=== PATIENT | female | born 1935 | race Caucasian/White ===

== ENCOUNTER → 2019-03-22 14:22 | Outpatient (CLI) | payer MEDICARE, MEDICAID, SELFPAY ==
--- NOTE | 2019-03-22 14:24 | DI.RAD.S_ITS ---
PROCEDURE: XR SHOULDER RT MIN 2V INDICATIONS: Right shoulder pain - AC joint and rotator cuff TECHNIQUE: 3 views of the shoulder were acquired. COMPARISON: [facility], , SHOULDER MINIMUM 2 VIEW LEFT, 02/07/2008, 9:19. FINDINGS: Bones: No fractures or dislocations. No suspicious bony lesions. Visualized ribs appear intact. Scattered degenerative subchondral sclerosis and spurring. Severe AC joint space narrowing. Mild glenohumeral joint degeneration Soft tissues: No suspicious soft tissue calcifications. IMPRESSION: Right shoulder joint degeneration as above Dictated by: Daniel Mar M.D. on 03/22/2019 at 15:16 Approved by: Daniel Mar M.D. on 03/22/2019 at 15:18
== END ==
PROVIDERS: Family Provider Physician Assistant; PCP Physician Assistant; Visit Provider Physician Assistant
DX: M25.511 Pain in right shoulder (principal); M19.011 Primary osteoarthritis, right shoulder
CPT/HCPCS: 73030

== ENCOUNTER 2020-05-08 10:35 | Emergency (ER) | payer MEDICARE, MEDICAID, SELFPAY ==
[2020-05-08 10:35] VITALS: BP 180/86; PULSE 75; RESP 18; TEMP 36.5; O2SAT 99
--- NOTE | 2020-05-08 11:00 | ED_ITS ---
HPI - Allergic Reaction General Chief complaint: Allergic Reaction Stated complaint: reaction to Amox today Time Seen by Provider: 05/08/20 10:39 Source: patient Mode of arrival: Ambulatory Limitations: no limitations History of Present Illness HPI narrative: 85-year-old woman presents after taking a dose of amoxicillin this morning and then remembering that she was ?allergic to it?. She is asymptomatic at this time. According to her she has recurrent nausea that she believes is due to an infection after a tooth extraction. I spoke with Dr. Shields's office [phone] apparently she had tooth 11. Extracted on April 16. She has been seen 5 times since that with complaints of a bad taste in her mouth that is causing nausea and she is convinced that it is a dental infection. The dentist has documented normal healing each time. Patient then went to urgent care on May 07 with the same complaint -nausea and a bad taste in her mouth without any pain. Urgent care notes indicate that the patient had spoken with her dentist and indicated that the dentist thought that it was likely an infection. Speaking with the dentist, despite 5 previous visits with no evidence of infection, no pain and no change to the nausea every time she eats, they did end up calling in a prescription for amoxicillin late the afternoon of May 07. In speaking with the pharmacist, a prescription for Zofran, Levaquin and Flagyl from urgent care were dispensed on May 07. The morning of May 08 patient picked up the amoxicillin prescription told the pharmacist that the night prior she had taken 1 Levaquin to Zofran and no Flagyl. After picking up the amoxicillin she took a single dose and then remembered that she had had some type of adverse reaction to it a long time ago. Pharmacy records indicate that they had last dispensed an amoxicillin prescription to her approximately a year and a half ago with no record of any amoxicillin allergies. At this time, this woman's complaint is nausea every time she eats and a bad taste in her mouth. She is 22 days post extraction of tooth 11. With multiple other areas of decay in her mouth Related Data Home Medications Medication Instructions Recorded Confirmed COENZYME Q10/VITAMIN E (CO-Q-10 100 mg PO QDAY #0 12/28/12 05/07/20 100mg) [FLAX SEED] PO QDAY #0 12/14/16 05/07/20 [VITAMIN B-12] 2,000 iu PO QDAY #0 12/14/16 05/07/20 [VITAMIN D3] 1,000 iu PO BID #0 12/14/16 05/07/20 magnesium oxide 500 mg capsule 500 mg PO DAILY cap 03/22/19 05/07/20 Previous Rx's Medication Instructions Recorded levofloxacin 500 mg tablet 500 mg PO DAILY 7 Days #7 tab 05/07/20 metronidazole 500 mg tablet 500 mg PO BID #14 tab 05/07/20 ondansetron 4 mg disintegrating 4 mg PO BID PRN #14 tab 05/07/20 tablet Allergies Allergy/AdvReac Type Severity Reaction Status Date / Time amoxicillin [AMOXICILLIN] AdvReac Severe NAUSEA, Verified 05/08/20 10:45 DIZZINESS AND ESOPHAGITIS clindamycin [CLINDAMYCIN] AdvReac Severe NAUSEA, Verified 05/08/20 10:45 DIZZINESS, ESOPHAGITIS meclizine [MECLIZINE] AdvReac Severe NAUSEA, Verified 05/08/20 10:45 DIZZINESS AND ESOPHAGITIS shellfish derived AdvReac Severe (SHRIMP) Verified 05/08/20 10:45 [SHELLFISH DERIVED] VOMITING Review of Systems Review of Systems Narrative: Pertinent positive and negative findings as per HPI Remainder of review of systems is otherwise unremarkable for Constitutional: Fevers, chills, weakness ENT: No sore throat, neck pain, ear pain CV: Chest pain, palpitations, dyspnea on exertion Respiratory: Cough, wheeze, dyspnea Patient History Medical History Adverse drug reaction (Inactive) Allergic rhinitis (Chronic Unknown) Arthritis (Resolved 04/2006) Dental infection (Acute) Endometrial polyp (Resolved Unknown) Esophagitis, acute (Inactive) Hx of pilonidal cyst (Resolved 1953) Nausea (Acute) Vertigo (Resolved ~2011) Surgical History History of third molar tooth extraction Status post dilation and curettage (01/13/10) Status post tonsillectomy and adenoidectomy Family History Father Cancer Mother Pneumonia Social History Smoking Status: Never smoker Smoking Status: Never smoker alcohol intake frequency: 0-2 drinks per day Substance Use Type: does not use Exam Narrative Exam Narrative: General: Alert appropriate in no acute distress ENT: Home oral exam, she has had multiple teeth extracted. Site of 11. Is well healed with no drainage no erythema and no tenderness. There are no other obvious infections or area of drainage. She has no cervical adenopathy Respiratory: Able to speak in full sentences, no obvious respiratory distress Skin: No obvious rashes, warm and dry Neurologic: Grossly intact no obvious asymmetries or abnormalities Psych: Somewhat confused, cooperative Initial Vital Signs Initial Vital Signs: Vital Signs Temperature 97.7 F 05/08/20 10:35 Pulse Rate 75 05/08/20 10:35 Respiratory Rate 18 05/08/20 10:35 Blood Pressure 180/86 H 05/08/20 10:35 Pulse Oximetry 99 05/08/20 10:35 Course Orders Ordered: Discontinued Medications Ondansetron HCl (Zofran Odt) 4 mg SL NOW ONE Stop: 05/08/20 10:52 Last Admin: 05/08/20 11:02 Dose: 4 mg Documented by: CLINTON Vital Signs Vital signs: Vital Signs - 8 hr 05/08/20 10:35 Temperature 97.7 F Pulse Rate 75 Respiratory Rate 18 Blood Pressure 180/86 H Pulse Oximetry 99 MDM - Allergic Reaction Medical Records Attestation: I reviewed the patient's medical records. MDM Narrative Medical decision making narrative: After examining patient, speaking with her dentist, reviewing urgent care notes I do not think that she has any acute dental infection. Her complaints of nausea every time she eats may well have another etiology. The bad taste in her mouth certainly can be explained with some of the other dental pathology but is not something that requires antibiotics at this time. She has taken a single dose of amoxicillin this morning is having no obvious adverse reactions at this time. I am not impressed that she truly does have an allergy to amoxicillin. She currently has a prescription for ondansetron to help with nausea from her urgent care visit yesterday that is available to her at home (pharmacy confirm that she did filll this the prescription) I have shared my concerns with her dentist with whom she has an appointment at 8:00 a.m. tomorrow I am going to suggest she stop all antibiotics. Follow-up with a primary care physician if she does continue to have nausea every time she eats. Review the bad taste in her mouth with her dentist at her appointment tomorrow. Discharge Plan Departure Patient Disposition: Home Clinical Impression: Nausea Instructions: DI for Nausea -- Adult Activity Restrictions/Additional Instructions: Thank you for coming in today On my exam today the recent tooth extraction on the upper left side is healing nicely. There is no drainage, redness or any evidence of infection. I do not think that the nausea your experiencing every time you eat is related to a dental infection. You do not need any antibiotics and I believe they are all causing a moderate amount of side effects. Please stop taking the Levaquin and the metronidazole that you picked up on May 07 and stop taking the amoxicillin that you picked up on May 08 You were also given a prescription for ondansetron, you picked this up on May 07 as well. If you are having continued nausea you can use this up to 2 times a day. If the nausea persists, you need to follow-up with your primary care shea higuera. I did leave a message with Dr. Shields, to let him know about the urgent care visit the concerns with amoxicillin allergy and the confusion over the antibiotics. If you continue to note this bad taste in your mouth, please discuss this with Dr Shields. Again, please stop taking all of the antibiotics that you currently have filled. You do not need antibiotics at this time and you do not have an acute dental infection. I hope you feel better. Prescriptions: No Action ondansetron 4 mg tablet,disintegrating 4 mg PO BID PRN (Reason: nausea and vomiting) Qty: 14 RF: 0 levofloxacin 500 mg tablet 500 mg PO DAILY 7 Days Qty: 7 RF: 0 metronidazole [Flagyl] 500 mg tablet 500 mg PO BID Qty: 14 RF: 0 COENZYME Q10/VITAMIN E (CO-Q-10 100mg) 100 mg PO QDAY Qty: 0 RF: 0 [FLAX SEED] PO QDAY Qty: 0 RF: 0 [VITAMIN B-12] 2,000 iu PO QDAY Qty: 0 RF: 0 [VITAMIN D3] 1,000 iu PO BID Qty: 0 RF: 0 magnesium oxide 500 mg capsule 500 mg PO DAILY RF: 0 Referrals: Lul Larkin MD [Primary Care Provider] -
[2020-05-08] MEDS: ONDANSETRON 4 MG ODT SL (11:02)
[2020-05-08 11:19] VITALS: BP 134/74; PULSE 78; RESP 12; TEMP 36.9; O2SAT 98
[2020-05-08 11:31] VITALS: BP 134/74; PULSE 73; RESP 12; O2SAT 98
== END 2020-05-08 11:33 | disposition home or self-care (01) ==
PROVIDERS: Emergency Provider Emergency Medicine; Family Provider Physician Assistant; PCP Student in an Organized Health Care Education/Training Program
DX: R11.0 Nausea (principal)
CPT/HCPCS: 99283

== ENCOUNTER 2020-05-10 09:44 | Emergency (ER) | payer MEDICARE, MEDICAID, SELFPAY ==
[2020-05-10 09:47] VITALS: BP 141/69; PULSE 84; RESP 14; TEMP 36.3; O2SAT 97; BMI 22.8
--- NOTE | 2020-05-10 09:52 | DI.RAD.S_ITS ---
PROCEDURE: XR CHEST 1V INDICATIONS: chest pain TECHNIQUE: One view of the chest was acquired. COMPARISON: [facility], CHEST 1 VIEW, 01/17/2012, 8:24. [facility], CHEST 1 VIEW, 07/29/2012, 7:29. FINDINGS: Surgical changes and devices: None. Lungs and pleura: Lungs are clear. No pleural effusions or pneumothorax. Mediastinum: The cardiac contours are within normal limits. The aorta demonstrates calcification and tortuosity. Bones and chest wall: No suspicious bony lesions. Age-appropriate bony degenerative changes are seen. Overlying soft tissues appear unremarkable. IMPRESSION: Unremarkable portable chest for age. Dictated by: Peter Faye M.D. on 05/10/2020 at 9:35 Approved by: Peter Faye M.D. on 05/10/2020 at 9:36
--- NOTE | 2020-05-10 09:52 | ED_ITS ---
HPI - General Adult General Chief complaint: Chest Pain Stated complaint: CHEST PAIN Time Seen by Provider: 05/10/20 09:52 History of Present Illness HPI narrative: 85-year-old woman who presents with chest pain that started about 3 hours prior to arrival. She describes preparing food in kitchen when she noticed some tightness in the center of her chest that she felt could be gas related. It lasted approximately 10 minutes and then resolved. She describes it is mild and not associated with diaphoresis or dyspnea. She had a tooth extracted on April 16 and has had recurrent episodes of nausea that she felt was related to infection from the tooth. Recurrent evaluation by the dentist and then again by me in the emergency room a couple of days ago did not suggest any discharge erythema or other issues with the extraction. She was seen two days ago in the emergency room, she was complaining of nausea that have been going on for 2 weeks. Today she complains of nausea for the last 3 days. She was given a prescription of Zofran and yesterday apparently took 8 4 mg tablets over the course of approximately 7 hours during the day. She called the pharmacist to again rate explained appropriate dosing and suggested that if she were to have any chest pain she needed to contact the emergency department. She notes that she has been sleeping poorly for an extended period of time typically 2-3 hours a night. She states that she only slept 3 hours last night. She has not had any actual emesis just the nausea over the last few weeks. She has not had exertional dyspnea, prior chest pain, diarrhea, fevers, chills, cough or any reports of acute neurologic changes. Related Data Home Medications Medication Instructions Recorded Confirmed COENZYME Q10/VITAMIN E (CO-Q-10 100 mg PO QDAY #0 12/28/12 05/09/20 100mg) [FLAX SEED] PO QDAY #0 12/14/16 05/09/20 [VITAMIN B-12] 2,000 iu PO QDAY #0 12/14/16 05/09/20 [VITAMIN D3] 1,000 iu PO BID #0 12/14/16 05/09/20 magnesium oxide 500 mg capsule 500 mg PO DAILY cap 03/22/19 05/09/20 Previous Rx's Medication Instructions Recorded ondansetron 4 mg disintegrating 4 mg PO BID PRN #14 tab 05/07/20 tablet Allergies Allergy/AdvReac Type Severity Reaction Status Date / Time metronidazole Allergy Mild nausea Verified 05/10/20 10:24 amoxicillin [AMOXICILLIN] AdvReac Severe NAUSEA, Verified 05/10/20 10:24 DIZZINESS AND ESOPHAGITIS clindamycin [CLINDAMYCIN] AdvReac Severe NAUSEA, Verified 05/10/20 10:24 DIZZINESS, ESOPHAGITIS meclizine [MECLIZINE] AdvReac Severe NAUSEA, Verified 05/10/20 10:24 DIZZINESS AND ESOPHAGITIS shellfish derived AdvReac Severe (SHRIMP) Verified 05/10/20 10:24 [SHELLFISH DERIVED] VOMITING Review of Systems Review of Systems Narrative: Pertinent positive and negative findings as per HPI Remainder of review of systems is otherwise unremarkable for Constitutional: Fevers, chills, weakness ENT: No sore throat, neck pain, ear pain CV: palpitations, dyspnea on exertion Respiratory: Cough, wheeze, dyspnea GI: Nausea, vomiting, diarrhea, change in bowel habits, black or bloody stools : Dysuria, hematuria, flank pain MS: Muscle weakness, numbness, joint swelling or warmth Skin: Rashes, nonhealing lesions Neuro: Syncope, dizziness, tingling Patient History Medical History Adverse drug reaction (Inactive) Allergic rhinitis (Chronic Unknown) Arthritis (Resolved 04/2006) Dental infection (Acute) Endometrial polyp (Resolved Unknown) Esophagitis, acute (Inactive) Hx of pilonidal cyst (Resolved 1953) Nausea (Acute) Vertigo (Resolved ~2011) Surgical History History of third molar tooth extraction Status post dilation and curettage (01/13/10) Status post tonsillectomy and adenoidectomy Family History Father Cancer Mother Pneumonia Social History Smoking Status: Never smoker Smoking Status: Never smoker alcohol intake frequency: 0-2 drinks per day Substance Use Type: does not use Exam Narrative Exam Narrative: General: Healthy appearing, in no acute distress. Able to give a complete and coherent history. Well-nourished well-developed HEENT: Moist mucous membranes, normal sclera with reactive pupils, Neck: No JVD, supple Respiratory: Lungs are clear to auscultation, no wheezing no rales no rhonchi. Full and symmetrical air movement Chest: No rashes, no tenderness along the sternal margin and no reproducible pain with compression of the ribcage Cardiac: Regular rate and rhythm no murmurs no bruits Abdomen: Soft nontender good bowel tones, no flank pain Skin: Warm and dry, no rashes Neurologic: Grossly neurologically intact with no obvious asymmetries or abnormalities Extremities: No trauma, well perfused Psych: Cooperative, appropriate insight and affect Initial Vital Signs Initial Vital Signs: Vital Signs Temperature 97.4 F L 05/10/20 09:47 Pulse Rate 84 05/10/20 09:47 Respiratory Rate 14 05/10/20 09:47 Blood Pressure 141/69 H 05/10/20 09:47 Pulse Oximetry 97 05/10/20 09:47 Course Orders Ordered: ED Orders 05/10/20 09:52 XR chest 1V Stat 05/10/20 10:00 Complete Blood Count AUTO DIFF Stat Comprehensive Metabolic Panel Stat Lipase Stat Troponin & CK Cardiac Panel Stat 05/10/20 10:04 EKG-12 Lead Stat Sodium Chloride (Normal Saline 0.9%) 1,000 mls @ 150 mls/hr IV CONT TORRES Last Admin: 05/10/20 10:21 Dose: 150 mls/hr Documented by: TEMI Discontinued Medications Aspirin (Aspirin Chew) 324 mg PO NOW ONE Stop: 05/10/20 09:53 Last Admin: 05/10/20 10:17 Dose: 324 mg Documented by: TEMI Vital Signs Vital signs: Vital Signs - 8 hr 05/10/20 09:47 05/10/20 10:36 Temperature 97.4 F L Pulse Rate 84 73 Respiratory Rate 14 16 Blood Pressure 141/69 H Blood Pressure [Right Arm] 123/67 Pulse Oximetry 97 97 Medical Decision Making Medical Records Medical records reviewed: Yes I reviewed the patient's medical records. Lab Data Lab results reviewed: Yes I reviewed the patient's lab results. Lab results narrative: Troponin is 0.012 Result diagrams: 05/10/20 10:00 05/10/20 10:00 Labs: Lab Results 05/10/20 05/10/20 Range/Units 10:00 10:00 WBC 4.9 (4.5-11.0) X10^3/uL RBC 4.72 (4.0-5.2) X10^6/uL Hgb 14.1 (12.0-16.0) g/dL Hct 40.7 (36-46) % MCV 86.2 (80-100) fL MCH 29.8 (26-34) PG MCHC 34.6 (30-36) % RDW 13.6 (11.6-14.8) % Plt Count 249 (150-400) X10^3/uL Neut % (Auto) 64.4 (50-75) % Lymph % (Auto) 25.5 (25-40) % [place] % (Auto) 7.5 (3-14) % Eos % (Auto) 2.0 (2-4) % Baso % (Auto) 0.6 (0-2) % Neut # (Auto) 3200 (7745-6265) /uL Lymph # (Auto) 1300 (7172-4535) /uL [place] # (Auto) 400 (0-900) /uL Eos # (Auto) 100 (0-450) /uL Baso # (Auto) 0 (0-100) /uL Sodium 136 L (137-145) mmol/L Potassium 4.0 (3.4-5.1) mmol/L Chloride 104 (98-107) mmol/L Carbon Dioxide 25 (22-32) mmol/L BUN 16 (7-17) mg/dL Creatinine 0.63 (0.52-1.04) mg/dL Estimated GFR > 60.0 (>60) mL/min BUN/Creatinine Ratio 25.4 H (6-22) Glucose 165 H (80-110) mg/dL Calcium 9.7 (8.4-10.2) mg/dL Total Bilirubin 1.2 (0.2-1.3) mg/dL AST 31 (14-36) IU/L ALT 19 (<35) IU/L Alkaline Phosphatase 65 (38-126) U/L Total Creatine Kinase 86 (30-135) U/L CK-MB (CK-2) TNP CK-MB (CK-2) Rel Index TNP Troponin I < 0.012 (0.01-0.034) ng/mL Total Protein 7.2 (6.3-8.2) g/dL Albumin 4.6 (3.5-5.0) g/dL Globulin 2.6 (1.7-4.1) g/dL Albumin/Globulin Ratio 1.8 (1.0-2.8) Lipase 113 (23-300) U/L Imaging Data Chest x-ray: Radiologist's Impression: IMPRESSION: Unremarkable portable chest for age. Dictated by: Peter Faye M.D. on 05/10/2020 at 9:35 ECG Data Attestation: I personally reviewed and interpreted this ECG as follows: Interpretation: Sinus rhythm at a rate of 73 Right bundle branch and left anterior fascicular block. Left axis deviation. No acute ST T wave changes. No evidence acute ischemia MDM Narrative Medical decision making narrative: 85-year-old woman with brief episode of chest pain this morning. She is seeking reassurance that she lives by herself and apparently lives quite far away. She was able to drive herself to the emergency department today. She has had recurrent complaints of nausea since dental extraction done on April 16. This morning nausea did seem to be resolved. She reports taking a total of 32 mg of ondansetron 8 yesterday over a course of 8 hours. This morning comes in for additional evaluation. Labs are entirely unremarkable as is troponin. Her EKG is notable for of right bundle branch block but no acute ischemic changes. QTC is 404 milliseconds and unremarkable At this point, reassurance is given I do not think that this is a cardiac issue. I suspect that anxiety is more a component than anything else. Reassurance is given she is safe for home discharge. Discharge Plan Departure Patient Disposition: Home Clinical Impression: Atypical chest pain, Nausea Instructions: DI for Atypical Chest Pain Activity Restrictions/Additional Instructions: Thank you for coming in today While you did take more of the nausea medicine then was recommended, you are still at the maximum 24 hour dose of medication recommended. Your lab work, EKG and chest x-ray today are reassuring. There is no evidence of severe toxicity from taking extra Zofran and there is no evidence of an acute heart attack or other life-threatening issues. It is safe for you to go home. If you have chest pain that returns, is more severe, associated with sweating or feeling short of breath and is radiating into your left arm left neck or left shoulder those would be appropriate reasons to return for additional evaluation in the emergency department. I would encourage you to follow-up with your primary care physician. Prescriptions: No Action ondansetron 4 mg tablet,disintegrating 4 mg PO BID PRN (Reason: nausea and vomiting) Qty: 14 RF: 0 COENZYME Q10/VITAMIN E (CO-Q-10 100mg) 100 mg PO QDAY Qty: 0 RF: 0 [FLAX SEED] PO QDAY Qty: 0 RF: 0 [VITAMIN B-12] 2,000 iu PO QDAY Qty: 0 RF: 0 [VITAMIN D3] 1,000 iu PO BID Qty: 0 RF: 0 magnesium oxide 500 mg capsule 500 mg PO DAILY RF: 0 Referrals: Lul Larkin MD [Primary Care Provider] -
[2020-05-10 10:08] LABS: Add Manual Diff / Slide Review NO; Basophils Absolute Auto 0 /uL (0-100); Basophils Percent Auto 0.6 % (0-2); Eosinophils Absolute Auto 100 /uL (0-450); Hematocrit 40.7 % (36-46); Hemoglobin 14.1 g/dL (12.0-16.0); Lymphocytes Absolute Auto 1300 /uL (1100-4500); Lymphocytes Percent Auto 25.5 % (25-40); Mean Corpuscular HGB Conc 34.6 % (30-36); Mean Corpuscular Hemoglobin 29.8 PG (26-34); Mean Corpuscular Volume 86.2 fL (80-100); Monocytes Absolute Auto 400 /uL (0-900); Monocytes Percent Auto 7.5 % (3-14); Neutrophils Absolute Auto 3200 /uL (1500-7000); Neutrophils Percent Auto 64.4 % (50-75); Platelet Count 249 X10^3/uL (150-400); Red Blood Cell Count 4.72 X10^6/uL (4.0-5.2); Red Cell Distribution Width 13.6 % (11.6-14.8); White Blood Cell Count 4.9 X10^3/uL (4.5-11.0)
[2020-05-10] MEDS: ASPIRIN 81 MG CHEW TAB 324 MG PO (10:17)
[2020-05-10 10:20] LABS: Alanine Aminotransferase 19 IU/L (<35); Albumin 4.6 g/dL (3.5-5.0); Albumin Globulin Ratio 1.8 (1.0-2.8); Alkaline Phosphatase 65 U/L (38-126); Aspartate Aminotransferase 31 IU/L (14-36); BUN Creatinine Ratio 25.4 (6-22); Bilirubin Total 1.2 mg/dL (0.2-1.3); Blood Urea Nitrogen 16 mg/dL (7-17); Calcium 9.7 mg/dL (8.4-10.2); Carbon Dioxide 25 mmol/L (22-32); Chloride 104 mmol/L (98-107); Creatine Kinase 86 U/L (30-135); Estimated Glomerular Filt Rate > 60.0 mL/min (>60); Globulin 2.6 g/dL (1.7-4.1); Glucose 165 mg/dL (80-110); HEMOLYSIS < 15 (0-50); Lipase 113 U/L (23-300); Sodium 136 mmol/L (137-145); Total Protein 7.2 g/dL (6.3-8.2)
[2020-05-10] MEDS: SODIUM CHLORIDE 0.9% 1,000 ML 150 ML IV (10:21)
[2020-05-10 10:30] LABS: Troponin I < 0.012 ng/mL (0.01-0.034)
[2020-05-10 10:36] VITALS: BP 123/67; PULSE 73; RESP 16; O2SAT 97
== END 2020-05-10 11:00 | disposition home or self-care (01) ==
PROVIDERS: Emergency Provider Emergency Medicine; Family Provider Physician Assistant; PCP Student in an Organized Health Care Education/Training Program
DX: R07.89 Other chest pain (principal); R11.0 Nausea
CPT/HCPCS: 36415; 71045; 80053; 82550; 83690; 84484; 85025; 93005; 96360; 99284

== ENCOUNTER → 2020-05-15 09:31 | Outpatient (CLI) | payer MEDICARE, MEDICAID, SELFPAY ==
[2020-05-15 10:08] LABS: Bacteria Urine None Seen
[2020-05-15 11:18] LABS: Hemoglobin A1C% w Est Avg Glu 5.4 % (4.0-6.0)
[2020-05-15 11:47] LABS: Appearance Urine UA CLEAR; Bilirubin Urine UA NEGATIVE (NEGATIVE); Color Urine UA YELLOW; Glucose Urine UA NEGATIVE (Negative); Ketones Urine UA TRACE (NEGATIVE); Leukocyte Esterase Urine UA NEGATIVE (NEGATIVE); Nitrite Urine UA NEGATIVE (Negative); Occult Blood Urine UA TRACE-INTACT (Negative); Protein Urine UA NEGATIVE (Negative); Specific Gravity Urine UA 1.015 (1.000-1.035); Urobilinogen Urine UA 0.2 E.U./dL (0.2)
[2020-05-15 11:50] LABS: Blood Urea Nitrogen 14 mg/dL (7-17); Calcium 9.2 mg/dL (8.4-10.2); Carbon Dioxide 30 mmol/L (22-32); Chloride 104 mmol/L (98-107); Cholesterol 210 mg/dL (140-199); Estimated Glomerular Filt Rate > 60.0 mL/min (>60); Glucose 104 mg/dL (80-110); HDL Cholesterol 79 mg/dL (40-60); HEMOLYSIS 15 (0-50); LDL Cholesterol Calculated 110 mg/dL (<100); Potassium 3.9 mmol/L (3.4-5.1); Sodium 137 mmol/L (137-145); Triglycerides 107 mg/dL (35-150)
[2020-05-15 12:07] LABS: RBC Urine 1-5/HPF (0-5/HPF)
[2020-05-15 12:08] LABS: Culture Indicated Urine Cult Not Indicated; Squamous Epithelial Cell Urine 1-5 /HPF (0-5/HPF); WBC Urine 0-1/HPF (0-5/HPF)
[2020-05-15 12:10] LABS: TSH w/ Reflex to FT4 0.77 uIU/mL (0.47-4.68)
[2020-05-16 14:36] LABS: Fecal Immunochemical Test Negative (Negative)
== END ==
PROVIDERS: Family Provider Physician Assistant; PCP Registered Nurse Diabetes Educator; Referring Provider Registered Nurse Diabetes Educator; Visit Provider Registered Nurse Diabetes Educator
DX: R11.0 Nausea (principal); Z86.39 Personal history of other endocrine, nutritional and metabolic disease; E78.5 Hyperlipidemia, unspecified
CPT/HCPCS: 36415; 80048; 80061; 81001; 82274; 83036; 84443

== ENCOUNTER 2020-05-17 12:39 | Emergency (ER) | payer MEDICARE, MEDICAID, SELFPAY ==
[2020-05-17 12:40] VITALS: BP 153/67; PULSE 65; RESP 18; TEMP 36.7; O2SAT 98; BMI 22.3
--- NOTE | 2020-05-17 12:44 | DI.RAD.S_ITS ---
PROCEDURE: XR CHEST 1V INDICATIONS: Chest pain TECHNIQUE: One view of the chest was acquired. COMPARISON: [facility], CR, XR CHEST 1V, 05/10/2020, 10:07. FINDINGS: Surgical changes and devices: None. Lungs and pleura: Lungs are clear. No pleural effusions or pneumothorax. Mediastinum: Mediastinal contours appear normal. Heart size is normal. Bones and chest wall: No suspicious bony lesions. Overlying soft tissues appear unremarkable. IMPRESSION: No acute cardiopulmonary process demonstrated radiographically. No significant change from prior study. Dictated by: Filemon Paulson M.D. on 05/17/2020 at 13:39 Approved by: Filemon Paulson M.D. on 05/17/2020 at 13:40
--- NOTE | 2020-05-17 12:57 | ED.CHESTPAIN ---
HPI - Chest Pain <Janice Mcconnell PA-C - Last Filed: 05/17/20 15:37> General Chief Complaint: Chest Pain Stated Complaint: Severe Nausea/Chest Pain Time Seen by Provider: 05/17/20 12:57 Source: patient Mode of arrival: Family Vehicle Limitations: no limitations History of Present Illness HPI narrative: This is an 85-year-old woman with a history of anxiety, atypical chest pain, nausea, shoulder pain and hyperglycemia who presents the emergency department complaining of nausea and chest pain. She says that the nausea has been on going for quite a few days now and she has already been seen for this and is working with her primary care doctor on what might be going on. The reason she came in today is that she started to have some sharp chest pains in the center slightly left side of her chest and it was pain that she had had not noticed previously. Because it was on the left side she thought it was important to come and get checked out she got in her car to drive over here and by the time she arrived to the hospital she was actually feeling much better. She says that the pain is currently gone and other than her consistent nausea she feels her normal self. She also notes that she took her 1st dose of omeprazole which she was recently prescribed about an hour before the pain happened. She says that her chronic nausea does not seem to be specifically associated with eating, it occurs at random and is present most of the time and she states she has been eating and drinking normally. She notes that she lives by herself although she says that her [id number] does live down the road, and states that ?now that I know what things to look out for I will not have to come in for something like this again, I am sorry I feel like I am a bother?. She denies any current chest pain, shortness of breath, abdominal pain, back pain, palpitations or any other symptoms. She also denies any recent fever, chills, vomiting or diarrhea. Related Data Home Medications Medication Instructions Recorded Confirmed COENZYME Q10/VITAMIN E (CO-Q-10 100 mg PO QDAY #0 12/28/12 05/16/20 100mg) [FLAX SEED] PO QDAY #0 12/14/16 05/16/20 [VITAMIN B-12] 2,000 iu PO QDAY #0 12/14/16 05/16/20 [VITAMIN D3] 1,000 iu PO BID #0 12/14/16 05/16/20 magnesium oxide 500 mg capsule 500 mg PO DAILY cap 03/22/19 05/16/20 Previous Rx's Medication Instructions Recorded ondansetron 4 mg disintegrating 4 mg PO BID PRN #14 tab 05/13/20 tablet omeprazole 20 mg capsule,delayed 20 mg PO DAILY #30 cap 05/16/20 release Allergies Allergy/AdvReac Type Severity Reaction Status Date / Time metronidazole Allergy Mild nausea Verified 05/16/20 08:35 amoxicillin [AMOXICILLIN] AdvReac Severe NAUSEA, Verified 05/16/20 08:35 DIZZINESS AND ESOPHAGITIS clindamycin [CLINDAMYCIN] AdvReac Severe NAUSEA, Verified 05/16/20 08:35 DIZZINESS, ESOPHAGITIS meclizine [MECLIZINE] AdvReac Severe NAUSEA, Verified 05/16/20 08:35 DIZZINESS AND ESOPHAGITIS shellfish derived AdvReac Severe (SHRIMP) Verified 05/16/20 08:35 [SHELLFISH DERIVED] VOMITING Review of Systems <Janice Mcconnell PA-C - Last Filed: 05/17/20 15:37> Review of Systems Narrative: GENERAL: Denies chills, fatigue, malaise, fever, sweats. HEENT: Denies sinus pain, ear pain, sore throat, difficulty swallowing, dizziness. RESPIRATORY: Denies dyspnea, cough, wheezing, hemoptysis, sputum. CARDIOVASCULAR: Positive for sharp chest pain that lasted about 15 minutes now resolved, negative for palpitations, orthopnea, edema, GASTROINTESTINAL: Positive for chronic nausea, negative for vomiting, abdominal pain, diarrhea, constipation, melena. : Denies dysuria, frequency, incontinence, hematuria, urinary retention. MUSCULOSKELETAL: denies weakness, joint pain, or bony pain SKIN: Denies rash, skin lesions, or other NEUROLOGIC: Denies weakness, headache, numbness, change in speech, confusion, seizures, incoordination. PSYCHIATRIC: No concerning psychosocial issues, patient lives alone, sought medical care in part because she was unsure of her symptoms warranted assessment because ?I live alone?. 12 point review of systems is negative except for those stated above Patient History <Janice Mcconnell PA-C - Last Filed: 05/17/20 15:37> Medical History Adverse drug reaction (Inactive) Allergic rhinitis (Chronic Unknown) Arthritis (Resolved 04/2006) Dental infection (Acute) Endometrial polyp (Resolved Unknown) Esophagitis, acute (Inactive) History of hyperglycemia (Acute) Hx of pilonidal cyst (Resolved 1953) Memory problem (Acute) Nausea (Acute) Vertigo (Resolved ~2011) Surgical History History of third molar tooth extraction Status post dilation and curettage (01/13/10) Status post tonsillectomy and adenoidectomy Family History Father Cancer Mother Pneumonia Social History Smoking Status: Never smoker Smoking Status: Never smoker alcohol intake frequency: 0-2 drinks per day Substance Use Type: does not use Exam <Janice Mcconnell PA-C - Last Filed: 05/17/20 15:37> Narrative Exam Narrative: GENERAL: 85 year old patient appears stated age. Well-nourished, well-developed patient, in mild distress. HEAD: Atraumatic. Normocephalic. EYES: Pupils equal round and reactive. Extraocular motions intact. No scleral icterus. No injection or drainage. ENT: Nose without bleeding, purulent drainage. Throat without erythema, tonsillar hypertrophy or exudate. Airway patent. NECK: Trachea midline. Non tender CARDIOVASCULAR: Regular rate and rhythm without murmurs, gallops, or rubs. RESPIRATORY: Clear to auscultation. Breath sounds equal bilaterally. No wheezes, rales, or rhonchi. GASTROINTESTINAL: Abdomen soft, non-tender, nondistended. EXTREMITIES: No edema or joint tenderness. BACK: Nontender without deformity or crepitance. No flank tenderness. NEURO: AOx3. SKIN: No rash or erythema of visible areas Initial Vital Signs Initial Vital Signs: Vital Signs Temperature 98.0 F 05/17/20 12:40 Pulse Rate 65 05/17/20 12:40 Respiratory Rate 18 05/17/20 12:40 Blood Pressure 153/67 H 05/17/20 12:40 Pulse Oximetry 98 05/17/20 12:40 <Ross Francisco MD - Last Filed: 05/18/20 07:32> Initial Vital Signs Initial Vital Signs: Vital Signs Temperature 98.0 F 05/17/20 12:40 Pulse Rate 65 05/17/20 12:40 Respiratory Rate 18 05/17/20 12:40 Blood Pressure 153/67 H 05/17/20 12:40 Pulse Oximetry 98 05/17/20 12:40 Scores <Janice Mcconnell PA-C - Last Filed: 05/17/20 15:37> GCS [place] coma scale eye opening: Spontaneous [place] coma scale verbal response: Orientated [place] coma scale motor response: Obey commands Darren coma scale total score: 15 Course <Janice Mcconnell PA-C - Last Filed: 05/17/20 15:37> Orders Ordered: Discontinued Medications Ondansetron HCl (Zofran) 4 mg IV NOW ONE Stop: 05/17/20 13:02 Last Admin: 05/17/20 13:11 Dose: 4 mg Documented by: DALJIT Vital Signs Vital signs: Vital Signs - 8 hr 05/17/20 12:40 05/17/20 14:00 Temperature 98.0 F Pulse Rate 65 64 Respiratory Rate 18 19 Blood Pressure 153/67 H 131/70 Pulse Oximetry 98 97 <Ross Francisco MD - Last Filed: 05/18/20 07:32> Orders Ordered: Discontinued Medications Ondansetron HCl (Zofran) 4 mg IV NOW ONE Stop: 05/17/20 13:02 Last Admin: 05/17/20 13:11 Dose: 4 mg Documented by: DALJIT Vital Signs Vital signs: Vital Signs - 8 hr 05/17/20 12:40 05/17/20 14:00 Temperature 98.0 F Pulse Rate 65 64 Respiratory Rate 18 19 Blood Pressure 153/67 H 131/70 Pulse Oximetry 98 97 MDM - Chest Pain <Janice Mcconnell PA-C - Last Filed: 05/17/20 15:37> Medical Records Data Attestation: I reviewed the patient's medical records. Lab Data Attestation: I reviewed the patient's lab results. Result diagrams: 05/17/20 13:00 05/17/20 13:00 Labs: Lab Results 05/17/20 05/17/20 05/17/20 Range/Units 13:00 13:00 13:00 WBC 4.6 (4.5-11.0) X10^3/uL RBC 4.53 (4.0-5.2) X10^6/uL Hgb 13.6 (12.0-16.0) g/dL Hct 39.1 (36-46) % MCV 86.4 (80-100) fL MCH 30.0 (26-34) PG MCHC 34.7 (30-36) % RDW 13.7 (11.6-14.8) % Plt Count 236 (150-400) X10^3/uL Neut % (Auto) 57.6 (50-75) % Lymph % (Auto) 30.0 (25-40) % [place] % (Auto) 8.4 (3-14) % Eos % (Auto) 3.2 (2-4) % Baso % (Auto) 0.8 (0-2) % Neut # (Auto) 2600 (2719-4414) /uL Lymph # (Auto) 1400 (3712-1008) /uL [place] # (Auto) 400 (0-900) /uL Eos # (Auto) 100 (0-450) /uL Baso # (Auto) 0 (0-100) /uL PT 10.8 (10.1-12.7) SECONDS INR 0.9 (0.9-1.3) APTT 28 (26.4-36.2) SECONDS Sodium 136 L (137-145) mmol/L Potassium 3.8 (3.4-5.1) mmol/L Chloride 103 (98-107) mmol/L Carbon Dioxide 29 (22-32) mmol/L BUN 12 (7-17) mg/dL Creatinine 0.58 (0.52-1.04) mg/dL Estimated GFR > 60.0 (>60) mL/min BUN/Creatinine Ratio 20.7 (6-22) Glucose 129 H (80-110) mg/dL Calcium 8.8 (8.4-10.2) mg/dL Total Bilirubin 0.7 (0.2-1.3) mg/dL AST 27 (14-36) IU/L ALT 15 (<35) IU/L Alkaline Phosphatase 60 (38-126) U/L Total Creatine Kinase 99 (30-135) U/L CK-MB (CK-2) TNP CK-MB (CK-2) Rel Index TNP Troponin I < 0.012 (0.01-0.034) ng/mL Total Protein 6.4 (6.3-8.2) g/dL Albumin 4.1 (3.5-5.0) g/dL Globulin 2.3 (1.7-4.1) g/dL Albumin/Globulin Ratio 1.8 (1.0-2.8) Lipase 127 (23-300) U/L Imaging Data Chest x-ray: Attestation: I personally reviewed and interpreted this imaging study as follows: Radiologist's Impression: [address] [address] XRay Report Signed Patient: Mariela Bansk EMR#: [id number] : 7Acct:[id number] Age/Sex: 85 / FDate of Service: 05/17/20 Loc: ED Accession Number: [id number] Procedure: XR chest 1V Ordering Provider: Ross Francisco MD PROCEDURE: XR CHEST 1V INDICATIONS: Chest pain TECHNIQUE: One view of the chest was acquired. COMPARISON: [facility], , XR CHEST 1V, 05/10/2020, 10:07. FINDINGS: Surgical changes and devices: None. Lungs and pleura: Lungs are clear. No pleural effusions or pneumothorax. Mediastinum: Mediastinal contours appear normal. Heart size is normal. Bones and chest wall: No suspicious bony lesions. Overlying soft tissues appear unremarkable. IMPRESSION: No acute cardiopulmonary process demonstrated radiographically. No significant change from prior study. Dictated by: Filemon Paulson M.D. on 05/17/2020 at 13:39 Approved by: Filemon Paulson M.D. on 05/17/2020 at 13:40 ECG Data Attestation: I personally reviewed and interpreted this ECG as follows: Prior ECG tracings: available for review (Unchanged) Interpretation: Sinus rhythm with left axis deviation, possible right ventricular conduction delay ventricular rate 63 P are interval 158 QRS 94 QTC 403 P axis 67 R axis -39 T axis 39 Core Measures Measure exclusions: not indicated MDM Narrative Medical decision making narrative: This is a well-appearing 85-year-old the history of atypical chest pain, nausea, anxiety who presents to the emergency department due to concerns over some sharp chest pains in the center and central left side of her chest that she experienced this morning about 1 hour after taking her 1st ever dose of omeprazole. The pain resolved upon arrival to the emergency department. Differential diagnoses considered include GERD, anxiety, atypical chest pain, NM I have low suspicion for an acute or life-threatening process, given that the patient's pain sounds noncardiac in nature and was short lived and resolved prior to her arrival to the emergency department. Workup today was unremarkable, and not suggestive of cardiac etiology or other acute cardiopulmonary process. She continues to have ongoing chronic nausea and she is working with her PCP on this. Patient notably lives alone, while she is generally doing fairly well mentally, I am concerned that some of her reason for her visit today was for reassurance, and possibly anxiety, because she lives alone and she seems to not be 100% capable of deciding whether her symptoms are concerning or not. While obtaining the HPI She stated repeatedly that ?now that I know what things to look out for (neck or shoulder pain) I know I do not have to worry and will not bother you guys again for something like this ?. Which suggest that she does not have the best decision making ability, and while she has presented to the emergency department once if not twice recently with concerns that ultimately proved non-emergent, there is also potentially a risk that she will not seek medical care when it is needed due to poor decision making. Patient was reassured regarding her complaints today, and advised it is appropriate to seek medical care if she has any symptoms that are new for her, or worsening of any chronic problems. Patient was discharged with emergency return precautions, advised to continue taking her prescribed medications and to continue working with her PCP and follow-up after this emergency department visit. All questions were answered. <Ross Francisco MD - Last Filed: 05/18/20 07:32> Lab Data Labs: Lab Results 05/17/20 05/17/20 05/17/20 Range/Units 13:00 13:00 13:00 WBC 4.6 (4.5-11.0) X10^3/uL RBC 4.53 (4.0-5.2) X10^6/uL Hgb 13.6 (12.0-16.0) g/dL Hct 39.1 (36-46) % MCV 86.4 (80-100) fL MCH 30.0 (26-34) PG MCHC 34.7 (30-36) % RDW 13.7 (11.6-14.8) % Plt Count 236 (150-400) X10^3/uL Neut % (Auto) 57.6 (50-75) % Lymph % (Auto) 30.0 (25-40) % [place] % (Auto) 8.4 (3-14) % Eos % (Auto) 3.2 (2-4) % Baso % (Auto) 0.8 (0-2) % Neut # (Auto) 2600 (9515-8476) /uL Lymph # (Auto) 1400 (8908-0505) /uL [place] # (Auto) 400 (0-900) /uL Eos # (Auto) 100 (0-450) /uL Baso # (Auto) 0 (0-100) /uL PT 10.8 (10.1-12.7) SECONDS INR 0.9 (0.9-1.3) APTT 28 (26.4-36.2) SECONDS Sodium 136 L (137-145) mmol/L Potassium 3.8 (3.4-5.1) mmol/L Chloride 103 (98-107) mmol/L Carbon Dioxide 29 (22-32) mmol/L BUN 12 (7-17) mg/dL Creatinine 0.58 (0.52-1.04) mg/dL Estimated GFR > 60.0 (>60) mL/min BUN/Creatinine Ratio 20.7 (6-22) Glucose 129 H (80-110) mg/dL Calcium 8.8 (8.4-10.2) mg/dL Total Bilirubin 0.7 (0.2-1.3) mg/dL AST 27 (14-36) IU/L ALT 15 (<35) IU/L Alkaline Phosphatase 60 (38-126) U/L Total Creatine Kinase 99 (30-135) U/L CK-MB (CK-2) TNP CK-MB (CK-2) Rel Index TNP Troponin I < 0.012 (0.01-0.034) ng/mL Total Protein 6.4 (6.3-8.2) g/dL Albumin 4.1 (3.5-5.0) g/dL Globulin 2.3 (1.7-4.1) g/dL Albumin/Globulin Ratio 1.8 (1.0-2.8) Lipase 127 (23-300) U/L Discharge Plan Departure Patient Disposition: Home Clinical Impression: Atypical chest pain, Nausea alone Discharge Date/Time: 05/17/20 14:32 Instructions: DI for Atypical Chest Pain, DI for Nausea -- Adult Activity Restrictions/Additional Instructions: Thank you for allowing us to be part of your care in the emergency department today. There is no evidence of an emergent or life threatening illness at this time, but follow up with your doctor in 1-2 days is recommended nonetheless to continue to rule out serious underlying causes of your symptoms. Please call the office for an appointment. Please return to the Emergency Department for any worsening or persistent symptoms. Please take medications as directed. I do not have a clear cause for your chest pain although I am glad that it was largely resolved by the time you came to the emergency department and that was short lived. It is certainly possible that your body was reacting a little bit to your new medication since you just took your omeprazole for the 1st time ever, shortly before you experience this chest discomfort. All of your labs, your EKG and chest x-ray were very reassuring today and I do not think that there is any reason to believe you are having trouble with your heart or any other acute or life-threatening process. Please do pay attention to her symptoms, and when you do experience something that is new for you or if you have worsening symptoms and is definitely appropriate to seek medical care. Please continue to work with your primary care physician regarding your ongoing nausea an evaluation for this. Prescriptions: No Action COENZYME Q10/VITAMIN E (CO-Q-10 100mg) 100 mg PO QDAY Qty: 0 RF: 0 [FLAX SEED] PO QDAY Qty: 0 RF: 0 [VITAMIN B-12] 2,000 iu PO QDAY Qty: 0 RF: 0 [VITAMIN D3] 1,000 iu PO BID Qty: 0 RF: 0 magnesium oxide 500 mg capsule 500 mg PO DAILY RF: 0 ondansetron 4 mg tablet,disintegrating 4 mg PO BID PRN (Reason: nausea and vomiting) Qty: 14 RF: 0 omeprazole 20 mg capsule,delayed release(DR/EC) 20 mg PO DAILY Qty: 30 RF: 0 Referrals: Kurt Matthew ARNP [Primary Care Provider] -
[2020-05-17 13:05] LABS: Add Manual Diff / Slide Review NO; Basophils Absolute Auto 0 /uL (0-100); Basophils Percent Auto 0.8 % (0-2); Eosinophils Absolute Auto 100 /uL (0-450); Eosinophils Percent Auto 3.2 % (2-4); Hematocrit 39.1 % (36-46); Hemoglobin 13.6 g/dL (12.0-16.0); Lymphocytes Absolute Auto 1400 /uL (1100-4500); Mean Corpuscular HGB Conc 34.7 % (30-36); Mean Corpuscular Volume 86.4 fL (80-100); Monocytes Absolute Auto 400 /uL (0-900); Monocytes Percent Auto 8.4 % (3-14); Neutrophils Absolute Auto 2600 /uL (1500-7000); Neutrophils Percent Auto 57.6 % (50-75); Platelet Count 236 X10^3/uL (150-400); Red Blood Cell Count 4.53 X10^6/uL (4.0-5.2); Red Cell Distribution Width 13.7 % (11.6-14.8); White Blood Cell Count 4.6 X10^3/uL (4.5-11.0)
[2020-05-17] MEDS: ONDANSETRON 4 MG/2 ML INJ IV (13:11)
[2020-05-17 13:14] LABS: INR 0.9 (0.9-1.3); Prothrombin Time 10.8 SECONDS (10.1-12.7)
[2020-05-17 13:16] LABS: PTT Partial Thromboplastin Tim 28 SECONDS (26.4-36.2)
[2020-05-17 13:20] LABS: Alanine Aminotransferase 15 IU/L (<35); Albumin 4.1 g/dL (3.5-5.0); Albumin Globulin Ratio 1.8 (1.0-2.8); Alkaline Phosphatase 60 U/L (38-126); Aspartate Aminotransferase 27 IU/L (14-36); BUN Creatinine Ratio 20.7 (6-22); Bilirubin Total 0.7 mg/dL (0.2-1.3); Blood Urea Nitrogen 12 mg/dL (7-17); Calcium 8.8 mg/dL (8.4-10.2); Carbon Dioxide 29 mmol/L (22-32); Chloride 103 mmol/L (98-107); Creatine Kinase 99 U/L (30-135); Estimated Glomerular Filt Rate > 60.0 mL/min (>60); Globulin 2.3 g/dL (1.7-4.1); Glucose 129 mg/dL (80-110); HEMOLYSIS < 15 (0-50); Lipase 127 U/L (23-300); Potassium 3.8 mmol/L (3.4-5.1); Sodium 136 mmol/L (137-145); Total Protein 6.4 g/dL (6.3-8.2)
[2020-05-17 13:31] LABS: Troponin I < 0.012 ng/mL (0.01-0.034)
[2020-05-17 14:00] VITALS: BP 131/70; PULSE 64; RESP 19; O2SAT 97
== END 2020-05-17 14:32 | disposition home or self-care (01) ==
PROVIDERS: Emergency Medicine; Emergency Provider Student in an Organized Health Care Education/Training Program; Family Provider Physician Assistant; PCP Registered Nurse Diabetes Educator
DX: R07.89 Other chest pain (principal); R11.0 Nausea
CPT/HCPCS: 36415; 71045; 80053; 82550; 83690; 84484; 85025; 85610; 85730; 93005; 96374; 99284; J2405

== ENCOUNTER → 2020-05-24 08:29 | Outpatient (CLI) | payer MEDICARE, MEDICAID, SELFPAY ==
--- NOTE | 2020-05-24 08:32 | DI.RAD.S_ITS ---
PROCEDURE: XR RIBS RT MIN 3V W CXR 1V INDICATIONS: rib pain TECHNIQUE: 2 views of the right ribs were acquired, along with a single view chest. COMPARISON: None. FINDINGS: Surgical changes and devices: None. Bones and chest wall: No fractures or dislocations. No suspicious bony lesions. Overlying soft tissues appear unremarkable. Lungs and pleura: No pleural effusions or pneumothorax. Lungs appear clear. Mediastinum: Mediastinal contours appear normal. Heart size is normal. IMPRESSION: No displaced rib fractures visualized. No acute cardiopulmonary findings. Dictated by: Griselda Sims M.D. on 05/24/2020 at 11:11 Approved by: Griselda Sims M.D. on 05/24/2020 at 11:11
--- NOTE | 2020-05-24 08:32 | DI.RAD.S_ITS ---
PROCEDURE: XR ABDOMEN MIN 2V INDICATIONS: 1 week hx nausea. Please eval for stool backup or other TECHNIQUE: 2 views of the abdomen were acquired. COMPARISON: None. FINDINGS: Surgical changes and devices: None. Bowel: A large amount of stool is present throughout the transverse and ascending colon. Bowel gas pattern is otherwise unremarkable. Soft tissues: No masses; visualized solid organ contours appear normal in size. No suspicious abdominal calcifications. Bones: No suspicious bony abnormalities. IMPRESSION: Probable constipation. No findings to suggest obstruction or ileus. Dictated by: Griselda Sims M.D. on 05/24/2020 at 11:11 Approved by: Griselda Sims M.D. on 05/24/2020 at 11:12
== END ==
PROVIDERS: Family Provider Physician Assistant; PCP Registered Nurse Diabetes Educator; Referring Provider Family Medicine; Visit Provider Family Medicine
DX: R07.81 Pleurodynia (principal); R11.0 Nausea
CPT/HCPCS: 71101; 74019

== ENCOUNTER 2020-05-28 05:54 | Emergency (ER) | payer MEDICARE, MEDICAID, SELFPAY ==
--- NOTE | 2020-05-28 06:04 | ED_ITS ---
HPI - Nausea/Vomiting/Diarrhea General Chief complaint: Nausea/Vomiting/Diarrhea Stated complaint: still feeling sick after tooth extraction Time Seen by Provider: 05/28/20 05:55 Source: patient Mode of arrival: Ambulatory Limitations: no limitations History of Present Illness HPI Narrative: 85-year-old female nonsmoker presents with a chief complaint of ongoing nausea since dental work a month or so ago. She denies pain and has had no vomiting but states she has had a funny taste in her mouth ever since the dental work and it is making her nauseated. She is able to eat and drink. She has had no fever or chills. She has had numerous visits to the emergency department, her primary care provider, and her dentist with at times very large and complex evaluations and essentially normal electrolytes, blood counts, renal function etc.. She is taking her medications as prescribed which include ondansetron and omeprazole among others MD complaint: nausea Onset (ago): week(s) Description of Diarrhea: none Associated Abdominal Pain: No Relieving factors: none Exacerbating factors: none Related Data Home Medications Medication Instructions Recorded Confirmed COENZYME Q10/VITAMIN E (CO-Q-10 100 mg PO QDAY #0 12/28/12 05/27/20 100mg) [FLAX SEED] PO QDAY #0 12/14/16 05/27/20 [VITAMIN B-12] 2,000 iu PO QDAY #0 12/14/16 05/27/20 [VITAMIN D3] 1,000 iu PO BID #0 12/14/16 05/27/20 magnesium oxide 500 mg capsule 500 mg PO DAILY cap 03/22/19 05/27/20 Previous Rx's Medication Instructions Recorded omeprazole 20 mg capsule,delayed 20 mg PO DAILY #30 cap 05/16/20 release lidocaine 5 % topical patch 1 patch TOP DAILY #15 each 05/24/20 ondansetron 4 mg disintegrating 4 mg PO BID PRN #14 tab 05/27/20 tablet Allergies Allergy/AdvReac Type Severity Reaction Status Date / Time metronidazole Allergy Mild nausea Verified 05/27/20 08:59 amoxicillin [AMOXICILLIN] AdvReac Severe NAUSEA, Verified 05/27/20 08:59 DIZZINESS AND ESOPHAGITIS clindamycin [CLINDAMYCIN] AdvReac Severe NAUSEA, Verified 05/27/20 08:59 DIZZINESS, ESOPHAGITIS meclizine [MECLIZINE] AdvReac Severe NAUSEA, Verified 05/27/20 08:59 DIZZINESS AND ESOPHAGITIS shellfish derived AdvReac Severe (SHRIMP) Verified 05/27/20 08:59 [SHELLFISH DERIVED] VOMITING Review of Systems Constitutional Constitutional: Denies chills, Denies fatigue, Denies fever(s), Denies frequent falls, Denies lethargy and Denies weakness Eyes Eyes: Denies change in vision, Denies eye discharge, Denies irritation and Denies loss of vision ENT Ears, Nose, Mouth, and Throat: Denies change in voice, Denies dizziness, Denies neck pain, Denies sore throat and Denies throat swelling Comments: foul taste in mouth Cardiovascular Cardiovascular: Denies chest pain, Denies irregular heart rhythm, Denies lightheadedness, Denies palpitations, Denies dyspnea, Denies dyspnea on exertion and Denies orthopnea Respiratory Respiratory: Denies cough, Denies dyspnea, Denies dyspnea on exertion and Denies wheezing Gastrointestinal Gastrointestinal: Denies abdominal pain, Denies change in bowel habits, Denies diarrhea, Reports nausea and Denies vomiting Musculoskeletal Musculoskeletal: Denies neck pain and Denies numbness Integumentary/Breasts Skin/Breast: Denies pruritus, Denies erythema, Denies rash and Denies wounds Neurologic Neurologic: Denies behavioral changes, Denies confusion, Denies dizziness, Denies frequent falls, Denies loss of vision, Denies numbness and Denies weakness Psychiatric Psychiatric: Denies anxiety, Denies behavioral changes, Denies confusion, Denies depression, Denies homicidal ideation and Denies suicidal ideation Endocrine Endocrine: Denies fatigue, Denies flushing and Denies palpitations Hematologic/Lymphatic Hematologic/Lymphatic: Denies easy bruising Allergic/Immunologic Allergic/Immunologic: Denies urticaria, Denies throat swelling and Denies wheezing Patient History Medical History Adverse drug reaction (Inactive) Allergic rhinitis (Chronic Unknown) Arthritis (Resolved 04/2006) Dental infection (Acute) Endometrial polyp (Resolved Unknown) Esophagitis, acute (Inactive) History of hyperglycemia (Acute) Hx of pilonidal cyst (Resolved 1953) Memory problem (Acute) Muscle strain of anterior chest wall (Acute) Nausea (Acute) Vertigo (Resolved ) Surgical History History of third molar tooth extraction Status post dilation and curettage (01/13/10) Status post tonsillectomy and adenoidectomy Family History Father Cancer Mother Pneumonia Social History Smoking Status: Never smoker Smoking Status: Never smoker alcohol intake frequency: 0-2 drinks per day Substance Use Type: does not use Exam Narrative Exam Narrative: GENERAL: [85] year old patient appears stated age. Well- nourished, well-developed patient, in mild distress. HEAD: Atraumatic. Normocephalic. EYES: Pupils equal round and reactive. Extraocular motions intact. No scleral icterus. No injection or drainage. ENT: Poor dentition throughout, no suggestion abscess Nose without bleeding, purulent drainage. Throat without erythema, tonsillar hypertrophy or exudate. Airway patent. NECK: Trachea midline. Non tender CARDIOVASCULAR: Regular rate and rhythm without murmurs, gallops, or rubs. RESPIRATORY: Clear to auscultation. Breath sounds equal bilaterally. No wheezes, rales, or rhonchi. GASTROINTESTINAL: Abdomen soft, non-tender, nondistended. EXTREMITIES: No edema or joint tenderness. BACK: Nontender without deformity or crepitance. No flank tenderness. NEURO: AOx3. SKIN: No rash or erythema of visible areas Initial Vital Signs Initial Vital Signs: Vital Signs Temperature 98.1 F 05/28/20 06:05 Pulse Rate 63 05/28/20 06:05 Respiratory Rate 18 05/28/20 06:05 Blood Pressure 189/89 H 05/28/20 06:05 Pulse Oximetry 99 05/28/20 06:05 Course Vital Signs Vital signs: Vital Signs - 8 hr 05/28/20 06:05 Temperature 98.1 F Pulse Rate 63 Respiratory Rate 18 Blood Pressure 189/89 H Pulse Oximetry 99 MDM - Nausea/Vomiting/Diarrhea MDM Narrative Medical decision making narrative: Offered repeat labs and further evaluation, but patient refused at this point in time. Stating that we'd already done this, she wants to see a dentist or mouth specialist. I gave her contact to Dr. Rodriguez Discharge Plan Departure Patient Disposition: Home Clinical Impression: Nausea Instructions: DI for Nausea -- Adult Activity Restrictions/Additional Instructions: *You have been diagnosed with [ chronic nausea] *What to do: *Take medications as directed *Follow up with your primary care provider in 2-3 days, call for an appointment. Let them know you were seen in the Emergency Department and that we ask that you be seen in follow up *Return to ER if you should have any new, worsening or concerning symptoms Prescriptions: No Action COENZYME Q10/VITAMIN E (CO-Q-10 100mg) 100 mg PO QDAY Qty: 0 RF: 0 [FLAX SEED] PO QDAY Qty: 0 RF: 0 [VITAMIN B-12] 2,000 iu PO QDAY Qty: 0 RF: 0 [VITAMIN D3] 1,000 iu PO BID Qty: 0 RF: 0 magnesium oxide 500 mg capsule 500 mg PO DAILY RF: 0 omeprazole 20 mg capsule,delayed release(DR/EC) 20 mg PO DAILY Qty: 30 RF: 0 lidocaine 5 % adhesive patch,medicated 1 patch TOP DAILY Qty: 15 RF: 0 ondansetron 4 mg tablet,disintegrating 4 mg PO BID PRN (Reason: nausea and vomiting) Qty: 14 RF: 0 Referrals: Randy Rodriguez DMD [Physician] - Kurt Matthew ARNP [Primary Care Provider] -
[2020-05-28 06:05] VITALS: BP 189/89; PULSE 63; RESP 18; TEMP 36.7; O2SAT 99; BMI 22.6
--- NOTE | 2020-05-28 07:55 | PC.NURSE ---
Dr hernandez faxed to Lizabeth at Dr Ohara office for continuity of care. Medical records is closed at this time.
== END 2020-05-28 06:43 | disposition home or self-care (01) ==
PROVIDERS: Emergency Provider Emergency Medicine; Family Provider Physician Assistant; PCP Registered Nurse Diabetes Educator
DX: R11.0 Nausea (principal)
CPT/HCPCS: 99281

== ENCOUNTER 2020-06-01 07:52 | Emergency (ER) | payer MEDICARE, MEDICAID, SELFPAY ==
--- NOTE | 2020-06-01 08:05 | ED_ITS ---
HPI - Nausea/Vomiting/Diarrhea General Chief complaint: Nausea/Vomiting/Diarrhea Stated complaint: NAUSEA DESPITE MEDS Time Seen by Provider: 06/01/20 08:04 Source: patient and old records reviewed Mode of arrival: Ambulatory Limitations: no limitations History of Present Illness HPI Narrative: Patient is an 85-year-old female who presents with nausea. Her nausea has been ongoing for at least a month initially thought to be due to a dental procedure however it has continued. She has actually been here multiple times for chest pain and nausea she has had multiple workups and been prescribed Zofran and omeprazole. She says the nausea seems to keep her up at night. She denies any vomiting she denies any loss of weight. She has been able to eat and drink despite her nausea. She denies any abdominal pain or change in bowel habits. She does have some ongoing right-sided chest pain which has been worked up previously it is tender to touch remains in 1 particular area. She continues to have pain there today but she says it remained unchanged. She is here simply because she took her medicine for nausea and it does not work. Her PCP 5 days ago for the same. According to records she apparently is scheduled to see a GI doctor next week. Apparently he has taken promethazine suppository and done well and previously Zofran has helped. She also is apparently having memory issues. Her only imaging of her abdomen at this time is abdominal x-ray from May 24. complaint: nausea Associated symptoms: denies other symptoms Related Data Home Medications Medication Instructions Recorded Confirmed COENZYME Q10/VITAMIN E (CO-Q-10 100 mg PO QDAY #0 12/28/12 05/27/20 100mg) [FLAX SEED] PO QDAY #0 12/14/16 05/27/20 [VITAMIN B-12] 2,000 iu PO QDAY #0 12/14/16 05/27/20 [VITAMIN D3] 1,000 iu PO BID #0 12/14/16 05/27/20 magnesium oxide 500 mg capsule 500 mg PO DAILY cap 03/22/19 05/27/20 Previous Rx's Medication Instructions Recorded omeprazole 20 mg capsule,delayed 20 mg PO DAILY #30 cap 05/16/20 release lidocaine 5 % topical patch 1 patch TOP DAILY #15 each 05/24/20 ondansetron 4 mg disintegrating 4 mg PO BID PRN #14 tab 05/27/20 tablet metoclopramide HCl [Reglan] 5 mg PO Q6H PRN #10 tab 06/01/20 Allergies Allergy/AdvReac Type Severity Reaction Status Date / Time metronidazole Allergy Mild nausea Verified 05/27/20 08:59 amoxicillin [AMOXICILLIN] AdvReac Severe NAUSEA, Verified 05/27/20 08:59 DIZZINESS AND ESOPHAGITIS clindamycin [CLINDAMYCIN] AdvReac Severe NAUSEA, Verified 05/27/20 08:59 DIZZINESS, ESOPHAGITIS meclizine [MECLIZINE] AdvReac Severe NAUSEA, Verified 05/27/20 08:59 DIZZINESS AND ESOPHAGITIS shellfish derived AdvReac Severe (SHRIMP) Verified 05/27/20 08:59 [SHELLFISH DERIVED] VOMITING Review of Systems Review of Systems ROS Unobtainable: All systems reviewed & are unremarkable except as noted in HPI and below Constitutional Constitutional: Denies chills, Denies fever(s), Denies headache(s), Denies increased appetite, Denies lethargy, Denies poor appetite and Denies weakness ENT Ears, Nose, Mouth, and Throat: Denies headache(s) Cardiovascular Cardiovascular: Reports as per HPI, Reports chest pain, Denies rapid heart rate, Denies edema, Denies leg edema, Denies dyspnea, Denies dyspnea on exertion, Denies orthopnea and Denies slow heart rate Respiratory Respiratory: Denies dyspnea and Denies dyspnea on exertion Gastrointestinal Gastrointestinal: Denies abdominal pain, Denies change in bowel habits, Denies cramping, Denies loose stools, Reports nausea and Denies vomiting Integumentary/Breasts Skin/Breast: Denies pruritus, Denies erythema, Denies rash and Denies wounds Neurologic Neurologic: Denies headache(s), Reports memory loss and Denies weakness Psychiatric Psychiatric: Reports memory loss Patient History Medical History Adverse drug reaction (Inactive) Allergic rhinitis (Chronic Unknown) Arthritis (Resolved 04/2006) Dental infection (Acute) Endometrial polyp (Resolved Unknown) Esophagitis, acute (Inactive) History of hyperglycemia (Acute) Hx of pilonidal cyst (Resolved 1953) Memory problem (Acute) Muscle strain of anterior chest wall (Acute) Nausea (Acute) Vertigo (Resolved ) Surgical History History of third molar tooth extraction Status post dilation and curettage (01/13/10) Status post tonsillectomy and adenoidectomy Family History Father Cancer Mother Pneumonia Social History Smoking Status: Never smoker Smoking Status: Never smoker alcohol intake frequency: 0-2 drinks per day Substance Use Type: does not use Exam Initial Vital Signs Initial Vital Signs: Vital Signs Temperature 98.4 F 06/01/20 08:06 Pulse Rate 76 06/01/20 08:06 Respiratory Rate 18 06/01/20 08:06 Blood Pressure 149/66 H 06/01/20 08:06 Pulse Oximetry 99 06/01/20 08:06 GENERAL: Alert that elderly female and in no acute distress. HEENT: Head atraumatic,EOMI, pupils reactive, face symmetric, moist mucous membranes. Poor dentition CARDIOVASCULAR: Regular rate and rhythm without murmurs, rubs or gallops. RESPIRATORY: Breath sounds equal bilaterally, no wheezes rales or rhonchi. ABDOMEN: Soft, nontender. Normoactive bowel sounds all 4 quadrants. No guarding or rebound. EXTREMITIES: Normal range of motion, no clubbing or edema. Neurovascularly intact NEUROLOGICAL: Alert and oriented x4.Normal gait and speech. SKIN: Warm, dry, no laceration, no petechiae, no rashes or lesions. Course Orders Ordered: ED Orders 06/01/20 08:14 EKG-12 Lead Stat Discontinued Medications Metoclopramide HCl (Reglan) 5 mg PO NOW ONE Stop: 06/01/20 08:15 Last Admin: 06/01/20 08:24 Dose: 5 mg Documented by: [email or web address] Vital Signs Vital signs: Vital Signs - 8 hr 06/01/20 08:06 Temperature 98.4 F Pulse Rate 76 Respiratory Rate 18 Blood Pressure 149/66 H Pulse Oximetry 99 MDM - Nausea/Vomiting/Diarrhea ECG Data Attestation: I personally reviewed and interpreted this ECG as follows: Prior ECG tracings: available for review Interpretation: Normal sinus rhythm rate 65 p.r. interval 150 QRS [address] changes similar to previous EKG. MDM Narrative Medical decision making narrative: Patient has good follow-up next week with GI specialist for her ongoing persistent nausea. At this time she continues to eat and drink. Weight appears stable over her frequent ER visits since April 55-57 kg. He is given Reglan and is feeling much better. Discharge Plan Departure Patient Disposition: Home Clinical Impression: Nausea Discharge Date/Time: 06/01/20 08:52 Instructions: DI for Nausea -- Adult Activity Restrictions/Additional Instructions: *You have been diagnosed with nausea *What to do: You will need further workup for your nausea with GI whom you are scheduled to see next week *Continue to take medications as directed--> SENT TO [facility] Reglan 1 tablet every 8 hours only if needed for nausea do not combine with Zofran *Follow up with your primary care provider in 2-3 days *Return to ER if you should have abdominal pain vomiting inability to take in fluids worsening chest pain or shortness of breath or any new, worsening or concerning symptoms Prescriptions: New metoclopramide HCl [Reglan] 5 mg tablet 5 mg PO Q6H PRN (Reason: nausea and vomiting) Qty: 10 RF: 0 No Action COENZYME Q10/VITAMIN E (CO-Q-10 100mg) 100 mg PO QDAY Qty: 0 RF: 0 [FLAX SEED] PO QDAY Qty: 0 RF: 0 [VITAMIN B-12] 2,000 iu PO QDAY Qty: 0 RF: 0 [VITAMIN D3] 1,000 iu PO BID Qty: 0 RF: 0 magnesium oxide 500 mg capsule 500 mg PO DAILY RF: 0 omeprazole 20 mg capsule,delayed release(DR/EC) 20 mg PO DAILY Qty: 30 RF: 0 lidocaine 5 % adhesive patch,medicated 1 patch TOP DAILY Qty: 15 RF: 0 ondansetron 4 mg tablet,disintegrating 4 mg PO BID PRN (Reason: nausea and vomiting) Qty: 14 RF: 0 Referrals: Kurt Matthew ARNP [Primary Care Provider] -
[2020-06-01 08:06] VITALS: BP 149/66; PULSE 76; RESP 18; TEMP 36.9; O2SAT 99; BMI 22.6
[2020-06-01] MEDS: METOCLOPRAMIDE HCL 5 MG TABLET PO (08:24)
== END 2020-06-01 08:52 | disposition home or self-care (01) ==
PROVIDERS: Emergency Provider Emergency Medicine; Family Provider Physician Assistant; PCP Registered Nurse Diabetes Educator
DX: R11.0 Nausea (principal); R07.9 Chest pain, unspecified
CPT/HCPCS: 93005; 93010; 99282; 99283

== ENCOUNTER 2020-06-18 13:59 | Emergency (ER) | payer MEDICARE, MEDICAID, SELFPAY ==
[2020-06-18 14:05] VITALS: BP 125/67; PULSE 70; RESP 18; TEMP 36.7; O2SAT 97
--- NOTE | 2020-06-18 14:25 | ED.RECABL ---
HPI - Recheck/Abnormal Lab/Rx General Chief Complaint: Recheck/Abnormal Lab/Rx Stated Complaint: NAUSEA REFILL OF MEDICATION HAD PROCEDURE AT [facility] Time Seen by Provider: 06/18/20 14:15 Source: patient Mode of arrival: Ambulatory Limitations: no limitations History of Present Illness HPI narrative: This is a 85-year-old female, nonsmoker, who had visited ED several times with nausea in the past with in request of anti nausea medication refill, Zofran and Reglan. Patient reports she had visited dentist yesterday and today and she has severe nausea after she visited dental office. She had dental work done on lower teeth. Denies on antibiotic medications currently. She denies fever, chills, vomiting, chest pain, breathing difficulty, dizziness, vertigo symptoms. She denies urinary symptoms. Patient states every time she dentist she has nausea and is not sure whether she has allergy reaction to local anesthetic medications. She wanted to see her primary care doctor for refill but the weight is long so decided to come in to ED for refill. She states no other chief complaints and just needs refill for nausea medications, Zofran and Reglan which work well for her. Related Data Home Medications Medication Instructions Recorded Confirmed COENZYME Q10/VITAMIN E (CO-Q-10 100 mg PO QDAY #0 12/28/12 06/13/20 100mg) [FLAX SEED] PO QDAY #0 12/14/16 06/13/20 [VITAMIN B-12] 2,000 iu PO QDAY #0 12/14/16 06/13/20 [VITAMIN D3] 1,000 iu PO BID #0 12/14/16 06/13/20 magnesium oxide 500 mg capsule 500 mg PO DAILY cap 03/22/19 06/13/20 Previous Rx's Medication Instructions Recorded omeprazole 20 mg capsule,delayed 20 mg PO DAILY #30 cap 05/16/20 release lidocaine 5 % topical patch 1 patch TOP DAILY #15 each 05/24/20 metoclopramide HCl [Reglan] 5 mg PO Q6H PRN #10 tab 06/01/20 promethazine 12.5 mg rectal 12.5 mg [place] Q12H PRN #5 each 06/03/20 suppository ondansetron 4 mg disintegrating 4 mg PO BID PRN #14 tab 06/07/20 tablet metoclopramide HCl [Reglan] 5 mg PO DAILY PRN #7 tab 06/18/20 ondansetron 4 mg PO BID-TID PRN #7 tab 06/18/20 Allergies Allergy/AdvReac Type Severity Reaction Status Date / Time metronidazole Allergy Mild nausea Verified 06/13/20 09:08 amoxicillin [AMOXICILLIN] AdvReac Severe NAUSEA, Verified 06/13/20 09:08 DIZZINESS AND ESOPHAGITIS clindamycin [CLINDAMYCIN] AdvReac Severe NAUSEA, Verified 06/13/20 09:08 DIZZINESS, ESOPHAGITIS meclizine [MECLIZINE] AdvReac Severe NAUSEA, Verified 06/13/20 09:08 DIZZINESS AND ESOPHAGITIS shellfish derived AdvReac Severe (SHRIMP) Verified 06/13/20 09:08 [SHELLFISH DERIVED] VOMITING Review of Systems Review of Systems Narrative: General: Denies fever, chills, fatigue, malaise, sweats. HEENT: Denies sinus pain, ear pain, sore throat, difficulty swallowing, dizziness, poor dentition on lower mouth. Respiratory: Denies dyspnea, cough, wheezing, hemoptysis, sputum. Cardiovascular: Denies chest pain, palpitations, orthopnea, edema. Gastrointestinal: See HPI : Denies dysuria, frequency, incontinence, hematuria, urinary retention. Musculoskeletal: Denies weakness, joint pain or bony pain. Skin: Denies rash, skin lesions, or other. Neurologic: Denies weakness, headache, numbness, change in speech, confusion, seizures, incoordination. Psychiatric: No concerning psychosocial issues. 12-point review of systems is negative except for those stated above. Patient History Medical History Adverse drug reaction (Inactive) Allergic rhinitis (Chronic Unknown) Arthritis (Resolved 04/2006) Dental infection (Acute) Endometrial polyp (Resolved Unknown) Esophagitis, acute (Inactive) History of hyperglycemia (Acute) Hx of pilonidal cyst (Resolved 1953) Memory problem (Acute) Muscle strain of anterior chest wall (Acute) Nausea (Acute) Vertigo (Resolved ~2011) Surgical History History of third molar tooth extraction Status post dilation and curettage (01/13/10) Status post tonsillectomy and adenoidectomy Family History Father Cancer Mother Pneumonia Social History Smoking Status: Never smoker Smoking Status: Never smoker alcohol intake frequency: 0-2 drinks per day Substance Use Type: does not use Exam Narrative Exam Narrative: GEN: Alert, oriented x 3, thin appearing and in no acute distress. Head: Normal cephalic, atraumatic. No scalp or temporal tenderness, palpable mass or rash. EYES: Pupils are equal, round, and reactive to light and accommodation. Extraocular muscles are intact bilaterally. There is no subconjunctival hemorrhage, exudate and sclera non-icteric. ENT: Hearing grossly intact. Nose without bleeding, purulent discharge or deviation. Mucous membrane moist, no mucosal lesion. Poor dentition especially in lower mouth. Throat without erythema, tonsillar hypertrophy or exudate. Uvula in midline, airway patent. Neck: Trachea in midline. No JVD, non-tender without lymphadenopathy. No masses or thyroid megaly. Supple, non-tender and no meningeal signs. CARDIAC: Normal regular rate and rhythm without murmurs, gallops, or rubs. No chest wall tenderness. No peripheral edema, cyanosis or pallor. Capillary refill is less than 2 seconds. RESPIRATORY: Lungs are clear to auscultate bilaterally. No cough, wheezes, rales, or rhonchi. No stridor, respiratory distress, increase work of breathing, or accessary muscle used. ABD: Abdomen soft, nontender and non-distended. No guarding or rebound tenderness to palpate. Bowel sounds are normal in all 4 quadrants. There is no palpable masses or organomegaly. EXT: Full painless ROM of all extremities with no loss of sensation, strength, effusion or edema. SKIN: Warm, dry, slightly pale. No erythema, lesions or rash over visible areas. BACK: Nontender without deformity or crepitance. No flank tenderness. NEUROLOGICAL: Alert and oriented to place, time and person. Sensation and motor function intact bilaterally. No facial droops, dysphasia. PSYCHIATRIC: Good judgement and reason, without hallucinations, abnormal affect or abnormal behaviors during the examination. Initial Vital Signs Initial Vital Signs: Vital Signs Temperature 98.0 F 06/18/20 14:05 Pulse Rate 70 06/18/20 14:05 Respiratory Rate 18 06/18/20 14:05 Blood Pressure 125/67 06/18/20 14:05 Pulse Oximetry 97 06/18/20 14:05 Scores GCS Darren coma scale eye opening: Spontaneous [place] coma scale verbal response: Orientated [place] coma scale motor response: Obey commands Darren coma scale total score: 15 Course Orders Ordered: Discontinued Medications Ondansetron HCl (Zofran Odt) 4 mg SL NOW ONE Stop: 06/18/20 14:32 Last Admin: 06/18/20 14:38 Dose: 4 mg Documented by: SHAILA Vital Signs Vital signs: Vital Signs - 8 hr 06/18/20 14:05 Temperature 98.0 F Pulse Rate 70 Respiratory Rate 18 Blood Pressure 125/67 Pulse Oximetry 97 [facility] - Recheck/Abnormal Lab/Rx Differential Diagnosis Differential diagnosis: Likely encounter for medication refill and other (Nausea, dental infection) Medical Records Attestation: I reviewed the patient's medical records. [facility] Narrative Medical decision making narrative: This is a 85-year-old female presents to ED in request of medication for nausea, Zofran and Reglan, refill. Patient reports each time she goes to dental office she experiences extreme nausea. The patient has no other complaints and physical exam is unremarkable. Patient's EHR shows has ongoing nausea problem and she is currently followed by dentist for possible evaluation of dental infection that may cause her nausea. Patient is afebrile. Nontoxic appearing with within normal vital signs. Patient discharged to home with the refill of these medications and advised to use only as needed for severe nausea and to hydrate adequately. Discharge Plan Departure Patient Disposition: Home Clinical Impression: Nausea Discharge Date/Time: 06/18/20 14:53 Instructions: DI for Nausea -- Adult Activity Restrictions/Additional Instructions: You have been diagnosed with [nausea and refill medication for Zofran and Reglan after dental procedure.]. What to do: *Take your medications as directed. Take Zofran or Reglan only as needed for severe nausea. Please take small sips of liquids when her nausea is improved. When you can tolerate liquids you can advance to bland diet. This medication has been transmitted to [facility]. *Follow up with your primary care provider in 2-3 days, call for an appointment. Let them know you were seen in the ED and that we asked you to be seen in follow up. *Return to ED if you have any new, worsening, or concerning symptoms, such as [chest pain, breathing difficulty, stomach pain, urinary symptoms, fever, unable to tolerate fluids or any acute concerns]. Prescriptions: New ondansetron 4 mg tablet,disintegrating 4 mg PO BID-TID PRN (Reason: nausea and vomiting) Qty: 7 RF: 0 metoclopramide HCl [Reglan] 5 mg tablet 5 mg PO DAILY PRN (Reason: nausea and vomiting) Qty: 7 RF: 0 No Action COENZYME Q10/VITAMIN E (CO-Q-10 100mg) 100 mg PO QDAY Qty: 0 RF: 0 [FLAX SEED] PO QDAY Qty: 0 RF: 0 [VITAMIN B-12] 2,000 iu PO QDAY Qty: 0 RF: 0 [VITAMIN D3] 1,000 iu PO BID Qty: 0 RF: 0 ondansetron 4 mg tablet,disintegrating 4 mg PO BID PRN (Reason: nausea and vomiting) Qty: 14 RF: 0 magnesium oxide 500 mg capsule 500 mg PO DAILY RF: 0 omeprazole 20 mg capsule,delayed release(DR/EC) 20 mg PO DAILY Qty: 30 RF: 0 lidocaine 5 % adhesive patch,medicated 1 patch TOP DAILY Qty: 15 RF: 0 promethazine 12.5 mg suppository 12.5 mg WI Q12H PRN (Reason: nausea and vomiting) Qty: 5 RF: 0 metoclopramide HCl [Reglan] 5 mg tablet 5 mg PO Q6H PRN (Reason: nausea and vomiting) Qty: 10 RF: 0 Referrals: Kurt Matthew ARNP [Primary Care Provider] -
[2020-06-18] MEDS: ONDANSETRON 4 MG ODT SL (14:38)
== END 2020-06-18 14:53 | disposition home or self-care (01) ==
PROVIDERS: Emergency Provider Nurse Practitioner Family; Family Provider Physician Assistant; PCP Registered Nurse Diabetes Educator
DX: R11.0 Nausea (principal); Z98.818 Other dental procedure status
CPT/HCPCS: 99283

== ENCOUNTER 2020-06-21 05:19 | Emergency (ER) | payer MEDICARE, MEDICAID, SELFPAY ==
[2020-06-21 05:26] VITALS: BP 152/72; PULSE 77; RESP 18; TEMP 36.6; O2SAT 99; BMI 22.3
--- NOTE | 2020-06-21 05:27 | PC.NURSE ---
Pt had teeth extractions about 2 weeks. started with constipation about that time with nausea. has tried zofran with little relief.
--- NOTE | 2020-06-21 05:40 | ED.NAVMDI ---
HPI - Nausea/Vomiting/Diarrhea General Chief complaint: Nausea/Vomiting/Diarrhea Stated complaint: NAUSEA Time Seen by Provider: 06/21/20 05:32 Source: patient Mode of arrival: Ambulatory Limitations: no limitations History of Present Illness HPI Narrative: 85-year-old woman with worsening memory dysfunction and recurrent complaints of nausea that are to the point of delusional fixation. She complains of continued nausea, dental infections and inability to sleep. She has had 21 visits between emergency room internal medicine in family medicine within the last 3 months. This does not include practices outside of the [facility] documentation system. At 1 point I spoke with the dentist whom she had seen regarding dental infection over which she was perseverating that did not seem to have any overt physical findings and he had seen her almost 8 times in 4 days with multiple medication changes. She currently has Reglan and Zofran available and has the pills with her. She has a stool softener. She complains of sleeping only 2 hours a night and complains of minimal bowel movements. Related Data Home Medications Medication Instructions Recorded Confirmed COENZYME Q10/VITAMIN E (CO-Q-10 100 mg PO QDAY #0 12/28/12 06/13/20 100mg) [FLAX SEED] PO QDAY #0 12/14/16 06/13/20 [VITAMIN B-12] 2,000 iu PO QDAY #0 12/14/16 06/13/20 [VITAMIN D3] 1,000 iu PO BID #0 12/14/16 06/13/20 magnesium oxide 500 mg capsule 500 mg PO DAILY cap 03/22/19 06/13/20 Previous Rx's Medication Instructions Recorded omeprazole 20 mg capsule,delayed 20 mg PO DAILY #30 cap 05/16/20 release lidocaine 5 % topical patch 1 patch TOP DAILY #15 each 05/24/20 metoclopramide HCl [Reglan] 5 mg PO Q6H PRN #10 tab 06/01/20 promethazine 12.5 mg rectal 12.5 mg ND Q12H PRN #5 each 06/03/20 suppository ondansetron 4 mg disintegrating 4 mg PO BID PRN #14 tab 06/07/20 tablet metoclopramide HCl [Reglan] 5 mg PO DAILY PRN #7 tab 06/18/20 ondansetron 4 mg PO BID-TID PRN #7 tab 06/18/20 Allergies Allergy/AdvReac Type Severity Reaction Status Date / Time metronidazole Allergy Mild nausea Verified 06/21/20 05:34 amoxicillin [AMOXICILLIN] AdvReac Severe NAUSEA, Verified 06/21/20 05:34 DIZZINESS AND ESOPHAGITIS clindamycin [CLINDAMYCIN] AdvReac Severe NAUSEA, Verified 06/21/20 05:34 DIZZINESS, ESOPHAGITIS meclizine [MECLIZINE] AdvReac Severe NAUSEA, Verified 06/21/20 05:34 DIZZINESS AND ESOPHAGITIS shellfish derived AdvReac Severe (SHRIMP) Verified 06/21/20 05:34 [SHELLFISH DERIVED] VOMITING Review of Systems Review of Systems Narrative: Pertinent positive and negative findings as per HPI Remainder of review of systems is otherwise unremarkable for Constitutional: Fevers, chills, weakness ENT: No sore throat, neck pain, ear pain CV: Chest pain, palpitations, dyspnea on exertion Respiratory: Cough, wheeze, dyspnea : Dysuria, hematuria, flank pain MS: Muscle weakness, numbness, joint swelling or warmth Skin: Rashes, nonhealing lesions Neuro: Syncope, dizziness, tingling Patient History Medical History Adverse drug reaction (Inactive) Allergic rhinitis (Chronic Unknown) Arthritis (Resolved 04/2006) Dental infection (Acute) Endometrial polyp (Resolved Unknown) Esophagitis, acute (Inactive) History of hyperglycemia (Acute) Hx of pilonidal cyst (Resolved 1953) Memory problem (Acute) Muscle strain of anterior chest wall (Acute) Nausea (Acute) Vertigo (Resolved ~2011) Surgical History History of third molar tooth extraction Status post dilation and curettage (01/13/10) Status post tonsillectomy and adenoidectomy Family History Father Cancer Mother Pneumonia Social History Smoking Status: Never smoker Smoking Status: Never smoker alcohol intake frequency: 0-2 drinks per day Substance Use Type: does not use Exam Narrative Exam Narrative: General: Alert appropriate in no acute distress, Respiratory: Able to speak in full sentences, no obvious respiratory distress Abdomen: soft nontender nondistended Skin: No obvious rashes, warm and dry Neurologic: Grossly intact no obvious asymmetries or abnormalities Psych: Fixed delusional thinking regarding nausea dental infections constipation and insomnia, minimal insight into overuse of the healthcare system and inappropriate emergency room visits Initial Vital Signs Initial Vital Signs: Vital Signs Temperature 98 F 06/21/20 05:26 Pulse Rate 77 06/21/20 05:26 Respiratory Rate 18 06/21/20 05:26 Blood Pressure 152/72 H 06/21/20 05:26 Pulse Oximetry 99 06/21/20 05:26 Course Vital Signs Vital signs: Vital Signs - 8 hr 06/21/20 05:26 Temperature 98 F Pulse Rate 77 Respiratory Rate 18 Blood Pressure 152/72 H Pulse Oximetry 99 MDM - Nausea/Vomiting/Diarrhea MDM Narrative Medical decision making narrative: 85-year-old woman with persistent fixed delusions regarding nausea and her dental care as well as complaints of constipation. Multiple visits to primary care urgent care emergency room as well as a multiple dentists. Recommended that she pick 1 provider and stick with 1 provider and discuss the inappropriate use of the emergency room for chronic medical problems. She currently has Reglan and Zofran available. She has an appointment with her primary care doctor on Wednesday. Reviewed appropriate use of MiraLax and she is discharged home. Discharge Plan Departure Patient Disposition: Home Clinical Impression: Nausea Constipation Qualifiers: Constipation type: unspecified constipation type Qualified Code(s): K59.00 - Constipation, unspecified Discharge Date/Time: 06/21/20 06:06 Instructions: DI for Constipation, DI for Nausea -- Adult Activity Restrictions/Additional Instructions: You are having continued problems with nausea, constipation, insomnia and dental issues. You are seeing multiple providers and getting multiple different opinions. Continuing to seek opinions from multiple providers is not serving you well. You need to pick 1 primary care provider and follow-up with her. You need to have 1 clearly defined course of action and stick with this. You currently have Reglan to help with nausea and Zofran to help with nausea via a different mechanism. You can use both of these. The colon cleanse that you have can be helpful with constipation. With the MiraLax that you have, I would recommend 1 full cap full in a large glass of water daily rather than eating a tsp of the powder at a time. Please know that the emergency room is here for emergencies. Chronic nausea, constipation and insomnia are not emergencies and it is inappropriate to continue to seek help for the same problem in the emergency department. Please keep your appointment with your primary care provider in 3 days, on Wednesday. Good luck Prescriptions: No Action COENZYME Q10/VITAMIN E (CO-Q-10 100mg) 100 mg PO QDAY Qty: 0 RF: 0 [FLAX SEED] PO QDAY Qty: 0 RF: 0 [VITAMIN B-12] 2,000 iu PO QDAY Qty: 0 RF: 0 [VITAMIN D3] 1,000 iu PO BID Qty: 0 RF: 0 ondansetron 4 mg tablet,disintegrating 4 mg PO BID PRN (Reason: nausea and vomiting) Qty: 14 RF: 0 magnesium oxide 500 mg capsule 500 mg PO DAILY RF: 0 omeprazole 20 mg capsule,delayed release(DR/EC) 20 mg PO DAILY Qty: 30 RF: 0 lidocaine 5 % adhesive patch,medicated 1 patch TOP DAILY Qty: 15 RF: 0 promethazine 12.5 mg suppository 12.5 mg ND Q12H PRN (Reason: nausea and vomiting) Qty: 5 RF: 0 metoclopramide HCl [Reglan] 5 mg tablet 5 mg PO Q6H PRN (Reason: nausea and vomiting) Qty: 10 RF: 0 ondansetron 4 mg tablet,disintegrating 4 mg PO BID-TID PRN (Reason: nausea and vomiting) Qty: 7 RF: 0 metoclopramide HCl [Reglan] 5 mg tablet 5 mg PO DAILY PRN (Reason: nausea and vomiting) Qty: 7 RF: 0 Referrals: Kurt Matthew ARNP [Primary Care Provider] -
== END 2020-06-21 06:06 | disposition home or self-care (01) ==
PROVIDERS: Emergency Provider Emergency Medicine; Family Provider Physician Assistant; PCP Registered Nurse Diabetes Educator
DX: K59.00 Constipation, unspecified (principal); R11.0 Nausea
CPT/HCPCS: 99281

== ENCOUNTER → 2020-07-02 09:13 | Outpatient (CLI) | payer MEDICARE, MEDICAID, SELFPAY ==
[2020-07-03 09:16] LABS: COVID19 Sendout Not Detected (Not Detect)
== END ==
PROVIDERS: Family Provider Physician Assistant; PCP Registered Nurse Diabetes Educator; Visit Provider Physician Assistant
DX: Z11.59 Encounter for screening for other viral diseases (principal)
CPT/HCPCS: 87635

== ENCOUNTER → 2020-07-03 09:32 | Outpatient (CLI) | payer MEDICARE, MEDICAID, SELFPAY ==
[2020-07-04 04:13] LABS: COVID19 Sendout Not Detected (Not Detect)
== END ==
PROVIDERS: Family Provider Physician Assistant; PCP Registered Nurse Diabetes Educator; Visit Provider Physician Assistant
DX: Z11.59 Encounter for screening for other viral diseases (principal)
CPT/HCPCS: 87635

== ENCOUNTER 2020-07-03 15:25 | Emergency (ER) | payer MEDICARE, MEDICAID, SELFPAY | END 2020-07-03 16:13 | disposition left against medical advice (07) | LOC: ED 17:05 | PROVIDERS: Emergency Provider Emergency Medicine; Family Provider Physician Assistant; PCP Registered Nurse Diabetes Educator | DX: R07.9 Chest pain, unspecified (principal) | CPT/HCPCS: 93005; 93010; 99282 ==

== ENCOUNTER 2020-07-08 11:44 | Emergency (ER) | payer MEDICARE, MEDICAID, SELFPAY ==
[2020-07-08 11:52] VITALS: PULSE 69; O2SAT 99
[2020-07-08 11:53] VITALS: BP 141/76; PULSE 71; RESP 16; O2SAT 100
--- NOTE | 2020-07-08 11:54 | DI.RAD.S_ITS ---
PROCEDURE: XR CHEST 1V INDICATIONS: chest pain TECHNIQUE: One view of the chest was acquired. COMPARISON: [facility], CR, XR CHEST 1V, 05/10/2020, 10:07. [facility], CR, XR CHEST 1V, 05/17/2020, 13:11. FINDINGS: Surgical changes and devices: None. Lungs and pleura: Lungs are clear. No pleural effusions or pneumothorax. Mediastinum: Mediastinal contours appear normal. Heart size is normal. Bones and chest wall: No suspicious bony lesions. Overlying soft tissues appear unremarkable. IMPRESSION: No acute cardiopulmonary disease. Dictated by: Imelda Mckeon M.D. on 07/08/2020 at 13:52 Approved by: Imelda Mckeon M.D. on 07/08/2020 at 13:56
[2020-07-08 12:00] VITALS: PULSE 67; RESP 22; O2SAT 100
[2020-07-08 12:04] VITALS: BP 136/65; PULSE 66; RESP 21; O2SAT 100
[2020-07-08 12:12] LABS: Add Manual Diff / Slide Review NO; Basophils Absolute Auto 0 /uL (0-100); Basophils Percent Auto 0.9 % (0-2); Eosinophils Absolute Auto 100 /uL (0-450); Eosinophils Percent Auto 2.1 % (2-4); Hematocrit 41.2 % (36-46); Hemoglobin 14.1 g/dL (12.0-16.0); Lymphocytes Absolute Auto 1300 /uL (1100-4500); Lymphocytes Percent Auto 26.9 % (25-40); Mean Corpuscular HGB Conc 34.1 % (30-36); Mean Corpuscular Hemoglobin 29.4 PG (26-34); Mean Corpuscular Volume 86.1 fL (80-100); Monocytes Absolute Auto 400 /uL (0-900); Monocytes Percent Auto 7.8 % (3-14); Neutrophils Absolute Auto 2900 /uL (1500-7000); Neutrophils Percent Auto 62.3 % (50-75); Platelet Count 227 X10^3/uL (150-400); Red Blood Cell Count 4.79 X10^6/uL (4.0-5.2); Red Cell Distribution Width 13.5 % (11.6-14.8); White Blood Cell Count 4.7 X10^3/uL (4.5-11.0)
[2020-07-08 12:19] LABS: INR 0.9 (0.9-1.3); Prothrombin Time 10.6 SECONDS (10.1-12.7)
[2020-07-08 12:22] LABS: PTT Partial Thromboplastin Tim 27 SECONDS (26.4-36.2)
[2020-07-08 12:23] LABS: Alanine Aminotransferase 17 IU/L (<35); Albumin 4.6 g/dL (3.5-5.0); Albumin Globulin Ratio 1.6 (1.0-2.8); Alkaline Phosphatase 64 U/L (38-126); Aspartate Aminotransferase 30 IU/L (14-36); BUN Creatinine Ratio 15.2 (6-22); Bilirubin Total 1.3 mg/dL (0.2-1.3); Blood Urea Nitrogen 10 mg/dL (7-17); Calcium 9.4 mg/dL (8.4-10.2); Carbon Dioxide 29 mmol/L (22-32); Chloride 102 mmol/L (98-107); Creatine Kinase 66 U/L (30-135); Estimated Glomerular Filt Rate > 60.0 mL/min (>60); Globulin 2.8 g/dL (1.7-4.1); Glucose 96 mg/dL (80-110); HEMOLYSIS < 15 (0-50); Lipase 112 U/L (23-300); Potassium 3.7 mmol/L (3.4-5.1); Sodium 137 mmol/L (137-145); Total Protein 7.4 g/dL (6.3-8.2)
[2020-07-08 12:30] VITALS: PULSE 71; O2SAT 100
[2020-07-08 12:35] LABS: Troponin I < 0.012 ng/mL (0.01-0.034)
--- NOTE | 2020-07-08 12:36 | ED.CHESTPAIN ---
HPI - Chest Pain <ROB Sheth - Last Filed: 07/09/20 04:17> General Chief Complaint: Chest Pain Stated Complaint: chest pain,abnormal ekg Time Seen by Provider: 07/08/20 12:01 Source: patient Mode of arrival: Wheelchair Limitations: no limitations History of Present Illness HPI narrative: 85 year female, nonsmoker, who has history of anxiety, atypical chest pain, nausea, hyperglycemia endoscopies procedure done 3 days ago presents to ED with intermittent mid chest discomfort for last 1 week but more frequent after the endoscopy procedure and now the discomfort is mostly gone.. Patient was informed after the procedure that discomfort in epigastric region is expected. Patient denies dyspnea, dizziness, vomiting or cold sweats.. No changes in chronic nausea. Patient reports no problem with eating and drinking at this time. Patient reports endoscopy was done due to chronic nausea and indigestion. Patient presents to walk-in clinic and advised to come to ED for further evaluation. Patient reports has not seen putty maker in the past and does not remember had cardiac workup. Related Data Home Medications Medication Instructions Recorded Confirmed COENZYME Q10/VITAMIN E (CO-Q-10 100 mg PO QDAY #0 12/28/12 07/08/20 100mg) [FLAX SEED] PO QDAY #0 12/14/16 07/08/20 [VITAMIN B-12] 2,000 iu PO QDAY #0 12/14/16 07/08/20 [VITAMIN D3] 1,000 iu PO BID #0 12/14/16 07/08/20 magnesium oxide 500 mg capsule 500 mg PO DAILY cap 03/22/19 07/08/20 Previous Rx's Medication Instructions Recorded omeprazole 20 mg capsule,delayed 20 mg PO DAILY #30 cap 05/16/20 release lidocaine 5 % topical patch 1 patch TOP DAILY #15 each 05/24/20 metoclopramide HCl [Reglan] 5 mg PO Q6H PRN #10 tab 06/01/20 metoclopramide HCl [Reglan] 5 mg PO DAILY PRN #7 tab 06/18/20 ondansetron 4 mg PO BID-TID PRN #7 tab 06/18/20 ondansetron 4 mg disintegrating 4 mg PO BID PRN #30 tab 06/24/20 tablet promethazine 12.5 mg rectal 12.5 mg MD Q12H PRN #10 each 07/02/20 suppository Allergies Allergy/AdvReac Type Severity Reaction Status Date / Time metronidazole Allergy Mild nausea Verified 07/08/20 15:18 amoxicillin [AMOXICILLIN] AdvReac Severe NAUSEA, Verified 07/08/20 15:18 DIZZINESS AND ESOPHAGITIS clindamycin [CLINDAMYCIN] AdvReac Severe NAUSEA, Verified 07/08/20 15:18 DIZZINESS, ESOPHAGITIS meclizine [MECLIZINE] AdvReac Severe NAUSEA, Verified 07/08/20 15:18 DIZZINESS AND ESOPHAGITIS shellfish derived AdvReac Severe (SHRIMP) Verified 07/08/20 15:18 [SHELLFISH DERIVED] VOMITING Review of Systems <ROB Sheth - Last Filed: 07/09/20 04:17> Review of Systems Narrative: General: Denies fever, chills, fatigue, malaise, sweats. HEENT: Denies sinus pain, ear pain, sore throat, difficulty swallowing, dizziness. Respiratory: Denies dyspnea, cough, wheezing, hemoptysis, sputum. Cardiovascular: See HPI Gastrointestinal: See HPI : Denies dysuria, frequency, incontinence, hematuria, urinary retention. Musculoskeletal: Denies weakness, joint pain or bony pain. Skin: Denies rash, skin lesions, or other. Neurologic: Denies weakness, headache, numbness, change in speech, confusion, seizures, incoordination. Psychiatric: No concerning psychosocial issues. 12-point review of systems is negative except for those stated above. Patient History <ROB Sheth - Last Filed: 07/09/20 04:17> Medical History Adverse drug reaction (Inactive) Allergic rhinitis (Chronic Unknown) Arthritis (Resolved 04/2006) Dental infection (Acute) Endometrial polyp (Resolved Unknown) Esophagitis, acute (Inactive) History of hyperglycemia (Acute) Hx of pilonidal cyst (Resolved 1953) Memory problem (Acute) Muscle strain of anterior chest wall (Acute) Nausea (Acute) Vertigo (Resolved ~2011) Surgical History H/O endoscopy (Acute) History of third molar tooth extraction Status post dilation and curettage (01/13/10) Status post tonsillectomy and adenoidectomy Family History Father Cancer Mother Pneumonia Social History Smoking Status: Never smoker Smoking Status: Never smoker alcohol intake frequency: 0-2 drinks per day Substance Use Type: does not use Exam <ROB Sheth - Last Filed: 07/09/20 04:17> Narrative Exam Narrative: GEN: Alert, oriented x 3, well appearing and nourished, and in no acute distress. Head: Normal cephalic, atraumatic. No scalp or temporal tenderness, palpable mass or rash. EYES: Pupils are equal, round, and reactive to light and accommodation. Extraocular muscles are intact bilaterally. There is no subconjunctival hemorrhage, exudate and sclera non-icteric. ENT:Hearing grossly intact. Nose without bleeding, purulent discharge or deviation. Mucous membrane moist, no mucosal lesion. Throat without erythema, tonsillar hypertrophy or exudate. Uvula in midline, airway patent. Neck: Trachea in midline. No JVD, non-tender without lymphadenopathy. No masses or thyroid megaly. Supple, non-tender and no meningeal signs. CARDIAC: Normal regular rate and rhythm without murmurs, gallops, or rubs. No chest wall tenderness. No peripheral edema, cyanosis or pallor. Capillary refill is less than 2 seconds. RESPIRATORY: Lungs are clear to auscultate bilaterally. No cough, wheezes, rales, or rhonchi. No stridor, respiratory distress, increase work of breathing, or accessary muscle used. ABD: Abdomen soft, nontender and non-distended. No guarding or rebound tenderness to palpate. Bowel sounds are normal in all 4 quadrants. There is no palpable masses or organomegaly. EXT: Full painless ROM of all extremities with no loss of sensation, strength, effusion or edema. SKIN: Warm, dry, normal color for patient. No erythema, lesions or rash over visible areas. BACK: Nontender without deformity or crepitance. No flank tenderness. NEUROLOGICAL: Alert and oriented to place, time and person. Sensation and motor function intact bilaterally. No facial droops, dysphasia. PSYCHIATRIC: Good judgement and reason, without hallucinations, abnormal affect or abnormal behaviors during the examination. Patient is not suicidal. Initial Vital Signs Initial Vital Signs: Vital Signs Pulse Rate 69 07/08/20 11:52 Pulse Oximetry 99 07/08/20 11:52 <Whitney Tristan MD - Last Filed: 07/09/20 18:53> Initial Vital Signs Initial Vital Signs: Vital Signs Pulse Rate 69 07/08/20 11:52 Pulse Oximetry 99 07/08/20 11:52 Scores <Nick RichieYUANP - Last Filed: 07/09/20 04:17> GCS Darren coma scale eye opening: Spontaneous Darren coma scale verbal response: Orientated [place] coma scale motor response: Obey commands Darren coma scale total score: 15 HEART Score Heart Score history: Slightly Suspicious Heart Score EKG: Non-Specific repolarization disturbance Heart Score Age: > or = 65 years old Heart Score risk factors: 1-2 risk factors Heart Score troponin: < or = to normal limit Heart Score Total: 4 Course <[facility] - Last Filed: 07/09/20 04:17> Orders Ordered: ED Orders 07/08/20 11:54 XR chest 1V Stat EKG-12 Lead Stat 07/08/20 12:05 Complete Blood Count AUTO DIFF Stat Comprehensive Metabolic Panel Stat Lipase Stat Partial Thromboplastin Time Stat Prothrombin Time INR Stat Troponin & CK Cardiac Panel Stat Vital Signs Vital signs: Vital Signs - 8 hr 07/08/20 11:52 07/08/20 11:53 07/08/20 12:00 Pulse Rate 69 71 67 Respiratory Rate 16 22 Blood Pressure 141/76 H Pulse Oximetry 99 100 100 07/08/20 12:04 07/08/20 12:30 Pulse Rate 66 71 Respiratory Rate 21 Blood Pressure 136/65 Pulse Oximetry 100 100 <Whitney Tristan MD - Last Filed: 07/09/20 18:53> Orders Ordered: ED Orders 07/08/20 11:54 XR chest 1V Stat EKG-12 Lead Stat 07/08/20 12:05 Complete Blood Count AUTO DIFF Stat Comprehensive Metabolic Panel Stat Lipase Stat Partial Thromboplastin Time Stat Prothrombin Time INR Stat Troponin & CK Cardiac Panel Stat Vital Signs Vital signs: Vital Signs - 8 hr 07/08/20 11:52 07/08/20 11:53 07/08/20 12:00 Pulse Rate 69 71 67 Respiratory Rate 16 22 Blood Pressure 141/76 H Pulse Oximetry 99 100 100 07/08/20 12:04 07/08/20 12:30 Pulse Rate 66 71 Respiratory Rate 21 Blood Pressure 136/65 Pulse Oximetry 100 100 MDM - Chest Pain <Nick Shirlene-ROB Gasca - Last Filed: 07/09/20 04:17> Differential Diagnosis Differential diagnosis: Likely stable angina, atypical chest pain and other (GERD, s/p edoscopy procedure discomfort) Medical Records Data Attestation: I reviewed the patient's medical records. Lab Data Attestation: I reviewed the patient's lab results. Result diagrams: 07/08/20 12:05 07/08/20 12:05 Labs: Lab Results 07/08/20 07/08/20 07/08/20 Range/Units 12:05 12:05 12:05 WBC 4.7 (4.5-11.0) X10^3/uL RBC 4.79 (4.0-5.2) X10^6/uL Hgb 14.1 (12.0-16.0) g/dL Hct 41.2 (36-46) % MCV 86.1 (80-100) fL MCH 29.4 (26-34) PG MCHC 34.1 (30-36) % RDW 13.5 (11.6-14.8) % Plt Count 227 (150-400) X10^3/uL Neut % (Auto) 62.3 (50-75) % Lymph % (Auto) 26.9 (25-40) % [place] % (Auto) 7.8 (3-14) % Eos % (Auto) 2.1 (2-4) % Baso % (Auto) 0.9 (0-2) % Neut # (Auto) 2900 (4429-3414) /uL Lymph # (Auto) 1300 (8917-9337) /uL [place] # (Auto) 400 (0-900) /uL Eos # (Auto) 100 (0-450) /uL Baso # (Auto) 0 (0-100) /uL PT 10.6 (10.1-12.7) SECONDS INR 0.9 (0.9-1.3) APTT 27 (26.4-36.2) SECONDS Sodium 137 (137-145) mmol/L Potassium 3.7 (3.4-5.1) mmol/L Chloride 102 (98-107) mmol/L Carbon Dioxide 29 (22-32) mmol/L BUN 10 (7-17) mg/dL Creatinine 0.66 (0.52-1.04) mg/dL Estimated GFR > 60.0 (>60) mL/min BUN/Creatinine Ratio 15.2 (6-22) Glucose 96 (80-110) mg/dL Calcium 9.4 (8.4-10.2) mg/dL Total Bilirubin 1.3 (0.2-1.3) mg/dL AST 30 (14-36) IU/L ALT 17 (<35) IU/L Alkaline Phosphatase 64 (38-126) U/L Total Creatine Kinase 66 (30-135) U/L CK-MB (CK-2) TNP CK-MB (CK-2) Rel Index TNP Troponin I < 0.012 (0.01-0.034) ng/mL Total Protein 7.4 (6.3-8.2) g/dL Albumin 4.6 (3.5-5.0) g/dL Globulin 2.8 (1.7-4.1) g/dL Albumin/Globulin Ratio 1.6 (1.0-2.8) Lipase 112 (23-300) U/L Imaging Data Chest x-ray: Radiologist's Impression: [address] [address] XRay Report Signed Patient: Mariela Banks EMR#: [id number] : 7Acct:[id number] Age/Sex: 85 / FDate of Service: 07/08/20 Loc: ED Accession Number: [id number] Procedure: XR chest 1V Ordering Provider: Whitney Tristan MD PROCEDURE: XR CHEST 1V INDICATIONS: chest pain TECHNIQUE: One view of the chest was acquired. COMPARISON: [facility], , XR CHEST 1V, 05/10/2020, 10:07. [facility], , XR CHEST 1V, 05/17/2020, 13:11. FINDINGS: Surgical changes and devices: None. Lungs and pleura: Lungs are clear. No pleural effusions or pneumothorax. Mediastinum: Mediastinal contours appear normal. Heart size is normal. Bones and chest wall: No suspicious bony lesions. Overlying soft tissues appear unremarkable. IMPRESSION: No acute cardiopulmonary disease. Dictated by: Imelda Mckeon M.D. on 07/08/2020 at 13:52 Approved by: Imelda Mckeon M.D. 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 Similar EKG tracings from previous visit. MDM Narrative Medical decision making narrative: This is a 85-year-old who presents to ED with chest comfort in epigastric region without associated symptoms for one week but more frequent after the endoscopy procedure 3 days ago which is mostly resolved by the time she came to ED. She went into walk-in clinic and the refer her to ED for an workup and patient was informed there is recent EKG changes. EKG shows sinus rhythm rate at 71 with left anterior fascicular block without ST changes that is similar from previous visits on 07/03/20, May and April. Cardiac enzymes were negative. Unremarkable lab test results including normal lipase. Chest x-ray without acute findings. Since the pain has been on going for at least 1 week and more consistent during last 2-3 days, repeat cardiac enzyme were deferred. Patient's vital signs hemodynamically stable. Heart score is 4 but with above findings and resolved pain, it would be reasonable to follow-up outpatient for cardiac workup. Patient's epigastric discomfort may related to status post endoscopic procedure which patient was informed by surgeon as expected discomfort. Patient and family member (son and [id number], Dr. Hampton) informed of findings and return precautions. Patient and family member verbalized understanding in agreement with treatment plan. Patient staffed with Dr. Tristan with EKG reading, lab findings, and history. <Whitney Tristan MD - Last Filed: 07/09/20 18:53> Lab Data Labs: Lab Results 07/08/20 07/08/20 07/08/20 Range/Units 12:05 12:05 12:05 WBC 4.7 (4.5-11.0) X10^3/uL RBC 4.79 (4.0-5.2) X10^6/uL Hgb 14.1 (12.0-16.0) g/dL Hct 41.2 (36-46) % MCV 86.1 (80-100) fL MCH 29.4 (26-34) PG MCHC 34.1 (30-36) % RDW 13.5 (11.6-14.8) % Plt Count 227 (150-400) X10^3/uL Neut % (Auto) 62.3 (50-75) % Lymph % (Auto) 26.9 (25-40) % [place] % (Auto) 7.8 (3-14) % Eos % (Auto) 2.1 (2-4) % Baso % (Auto) 0.9 (0-2) % Neut # (Auto) 2900 (4226-5972) /uL Lymph # (Auto) 1300 (8451-9820) /uL [place] # (Auto) 400 (0-900) /uL Eos # (Auto) 100 (0-450) /uL Baso # (Auto) 0 (0-100) /uL PT 10.6 (10.1-12.7) SECONDS INR 0.9 (0.9-1.3) APTT 27 (26.4-36.2) SECONDS Sodium 137 (137-145) mmol/L Potassium 3.7 (3.4-5.1) mmol/L Chloride 102 (98-107) mmol/L Carbon Dioxide 29 (22-32) mmol/L BUN 10 (7-17) mg/dL Creatinine 0.66 (0.52-1.04) mg/dL Estimated GFR > 60.0 (>60) mL/min BUN/Creatinine Ratio 15.2 (6-22) Glucose 96 (80-110) mg/dL Calcium 9.4 (8.4-10.2) mg/dL Total Bilirubin 1.3 (0.2-1.3) mg/dL AST 30 (14-36) IU/L ALT 17 (<35) IU/L Alkaline Phosphatase 64 (38-126) U/L Total Creatine Kinase 66 (30-135) U/L CK-MB (CK-2) TNP CK-MB (CK-2) Rel Index TNP Troponin I < 0.012 (0.01-0.034) ng/mL Total Protein 7.4 (6.3-8.2) g/dL Albumin 4.6 (3.5-5.0) g/dL Globulin 2.8 (1.7-4.1) g/dL Albumin/Globulin Ratio 1.6 (1.0-2.8) Lipase 112 (23-300) U/L Discharge Plan Departure Patient Disposition: Home Clinical Impression: Atypical chest pain Discharge Date/Time: 07/08/20 14:15 Instructions: DI for Atypical Chest Pain Activity Restrictions/Additional Instructions: You have been diagnosed with [atypical chest pain that has been resolved. Assuring lab test today. EKG no significant changes from a previous visit.]. What to do: *Take your medications as directed. *Follow up with your primary care provider in 2-3 days, call for an appointment. Let them know you were seen in the ED and that we asked you to be seen in follow up. You may need outpatient cardiac workup. *Return to ED if you have any new, worsening, or concerning symptoms, such as [different or worsening chest pain, breathing difficulty, worsening nausea vomiting, cold sweats, feeling like faint or any acute concerns]. Prescriptions: No Action COENZYME Q10/VITAMIN E (CO-Q-10 100mg) 100 mg PO QDAY Qty: 0 RF: 0 [FLAX SEED] PO QDAY Qty: 0 RF: 0 [VITAMIN B-12] 2,000 iu PO QDAY Qty: 0 RF: 0 [VITAMIN D3] 1,000 iu PO BID Qty: 0 RF: 0 promethazine 12.5 mg suppository 12.5 mg MD Q12H PRN (Reason: nausea and vomiting) Qty: 10 RF: 0 magnesium oxide 500 mg capsule 500 mg PO DAILY RF: 0 ondansetron 4 mg tablet,disintegrating 4 mg PO BID PRN (Reason: nausea and vomiting) Qty: 30 RF: 0 omeprazole 20 mg capsule,delayed release(DR/EC) 20 mg PO DAILY Qty: 30 RF: 0 lidocaine 5 % adhesive patch,medicated 1 patch TOP DAILY Qty: 15 RF: 0 metoclopramide HCl [Reglan] 5 mg tablet 5 mg PO Q6H PRN (Reason: nausea and vomiting) Qty: 10 RF: 0 ondansetron 4 mg tablet,disintegrating 4 mg PO BID-TID PRN (Reason: nausea and vomiting) Qty: 7 RF: 0 metoclopramide HCl [Reglan] 5 mg tablet 5 mg PO DAILY PRN (Reason: nausea and vomiting) Qty: 7 RF: 0 Referrals: Kurt Matthew ARNP [Primary Care Provider] - <Whitney Tristan MD - Last Filed: 07/09/20 18:53> Cosign ED Attending Cosignature Attestation: I was immediately available in the department for consultation throughout this patient's visit. I agree with documentation as above. Whitney Tristan MD
--- NOTE | 2020-07-08 12:40 | PC.NURSE ---
xray at bedside
[2020-07-08 14:14] VITALS: BP 144/72; PULSE 71; RESP 18; O2SAT 98
--- NOTE | 2020-07-08 16:55 | PC.NURSE ---
1230 - Had conversation with patient while family present in room regarding use of ED and ability to be seen at anytime is she chooses. Pt and family acknowledged information stating they understood patient can use the ED at anytime.
== END 2020-07-08 14:15 | disposition home or self-care (01) ==
PROVIDERS: Emergency Medicine; Emergency Provider Nurse Practitioner Family; Family Provider Physician Assistant; PCP Registered Nurse Diabetes Educator
DX: R07.89 Other chest pain (principal)
CPT/HCPCS: 36415; 71045; 80053; 82550; 83690; 84484; 85025; 85610; 85730; 93005; 99283; 99284

== ENCOUNTER 2020-08-27 14:40 | Emergency (ER) | payer MEDICARE, MEDICAID, SELFPAY ==
[2020-08-27 14:45] VITALS: BP 161/67; PULSE 75; RESP 16; TEMP 36.6; O2SAT 100; BMI 22.3
--- NOTE | 2020-08-27 14:48 | DI.RAD.S_ITS ---
PROCEDURE: XR CHEST 1V INDICATIONS: chest pain TECHNIQUE: One view of the chest was acquired. COMPARISON: [facility], , XR CHEST 1V, 05/17/2020, 13:11. [facility], , CHEST 1 VIEW, 01/17/2012, 8:24. [facility], , CHEST 2 VIEW, 01/08/2009, 7:26. [facility], , XR CHEST 1V, 07/08/2020, 12:38. FINDINGS: Surgical changes and devices: None. Lungs and pleura: Lungs are clear. No pleural effusions or pneumothorax. Mediastinum: Mediastinal contours appear normal. Heart size is normal. Bones and chest wall: No suspicious bony lesions. Overlying soft tissues appear unremarkable. IMPRESSION: No acute cardiopulmonary abnormality. Dictated by: John Montague M.D. on 08/27/2020 at 15:31 Approved by: John Montague M.D. on 08/27/2020 at 15:32
[2020-08-27 15:12] LABS: Add Manual Diff / Slide Review NO; Basophils Absolute Auto 100 /uL (0-100); Basophils Percent Auto 1.2 % (0-2); Eosinophils Absolute Auto 200 /uL (0-450); Eosinophils Percent Auto 4.4 % (2-4); Hematocrit 36.9 % (36-46); Hemoglobin 12.4 g/dL (12.0-16.0); Lymphocytes Absolute Auto 1500 /uL (1100-4500); Lymphocytes Percent Auto 31.2 % (25-40); Mean Corpuscular HGB Conc 33.5 % (30-36); Mean Corpuscular Volume 86.4 fL (80-100); Monocytes Absolute Auto 400 /uL (0-900); Monocytes Percent Auto 8.8 % (3-14); Neutrophils Absolute Auto 2600 /uL (1500-7000); Neutrophils Percent Auto 54.4 % (50-75); Platelet Count 219 X10^3/uL (150-400); Red Blood Cell Count 4.27 X10^6/uL (4.0-5.2); Red Cell Distribution Width 14.1 % (11.6-14.8); White Blood Cell Count 4.8 X10^3/uL (4.5-11.0)
[2020-08-27 15:15] VITALS: BP 158/68; PULSE 80; RESP 16; O2SAT 97
[2020-08-27 15:16] LABS: INR 0.9 (0.9-1.3); Prothrombin Time 9.9 SECONDS (10.1-12.7)
[2020-08-27 15:19] LABS: PTT Partial Thromboplastin Tim 28 SECONDS (26.4-36.2)
[2020-08-27 15:21] LABS: Alanine Aminotransferase 20 IU/L (<35); Alkaline Phosphatase 50 U/L (38-126); Aspartate Aminotransferase 35 IU/L (14-36); BUN Creatinine Ratio 38.9 (6-22); Bilirubin Total 0.5 mg/dL (0.2-1.3); Blood Urea Nitrogen 21 mg/dL (7-17); Calcium 8.8 mg/dL (8.4-10.2); Carbon Dioxide 29 mmol/L (22-32); Chloride 106 mmol/L (98-107); Creatine Kinase 73 U/L (30-135); Estimated Glomerular Filt Rate > 60.0 mL/min (>60); Glucose 132 mg/dL (80-110); Potassium 3.7 mmol/L (3.4-5.1); Sodium 137 mmol/L (137-145)
[2020-08-27 15:22] LABS: Albumin 3.9 g/dL (3.5-5.0); Albumin Globulin Ratio 1.6 (1.0-2.8); Globulin 2.4 g/dL (1.7-4.1); HEMOLYSIS 32 (0-50); Lipase 136 U/L (23-300); Total Protein 6.3 g/dL (6.3-8.2)
[2020-08-27 15:33] LABS: Troponin I < 0.012 ng/mL (0.01-0.034)
[2020-08-27 16:00] VITALS: BP 138/70; PULSE 76; RESP 16; O2SAT 97
--- NOTE | 2020-08-27 17:03 | ED.CHESTPAIN ---
HPI - Chest Pain <ROB Sheth - Last Filed: 08/27/20 23:24> General Chief Complaint: Chest Pain Stated Complaint: CHEST PAIN Time Seen by Provider: 08/27/20 16:13 Source: patient Mode of arrival: Ambulatory Limitations: no limitations History of Present Illness HPI narrative: This is a 85-year-old female, nonsmoker, who has history of anxiety, atypical chest pain, frequent nausea, hyperglycemia presents to ED with chief complain of sharp left-sided chest pain which lasted for 2 minutes after she was getting up from a nap. Patient reports occasionally she has dull chest pain but this time it was sharp which was different and in the left side of her chest. Patient denies associated symptoms such as short of breath, fever, cough, dizziness, cold swaets or lifting heavy objects or exerting herself. Patient denies recent exposure to Covid such as headache, diarrhea, runny nose, cough, or fever. Patient denies history of GERD. Patient reports she is feeling fine at this time no other complaints. She just wanted make sure this is not her heart causing the symptoms. Related Data Home Medications Medication Instructions Recorded Confirmed COENZYME Q10/VITAMIN E (CO-Q-10 100 mg PO QDAY #0 12/28/12 08/06/20 100mg) [FLAX SEED] PO QDAY #0 12/14/16 08/06/20 [VITAMIN B-12] 2,000 iu PO QDAY #0 12/14/16 08/06/20 [VITAMIN D3] 1,000 iu PO BID #0 12/14/16 08/06/20 magnesium oxide 500 mg capsule 500 mg PO DAILY cap 03/22/19 08/06/20 Previous Rx's Medication Instructions Recorded omeprazole 20 mg capsule,delayed 20 mg PO DAILY #30 cap 05/16/20 release lidocaine 5 % topical patch 1 patch TOP DAILY #15 each 05/24/20 promethazine 12.5 mg rectal 12.5 mg KS Q12H PRN #10 each 07/10/20 suppository sertraline 25 mg tablet 25 mg PO DAILY #30 tab 07/15/20 ondansetron 4 mg disintegrating 4 mg PO BID PRN #30 tab 07/23/20 tablet metoclopramide HCl 10 mg tablet 10 mg PO Q6H PRN #30 tab 08/16/20 Allergies Allergy/AdvReac Type Severity Reaction Status Date / Time metronidazole Allergy Mild nausea Verified 08/06/20 08:49 amoxicillin [AMOXICILLIN] AdvReac Severe NAUSEA, Verified 08/06/20 08:49 DIZZINESS AND ESOPHAGITIS clindamycin [CLINDAMYCIN] AdvReac Severe NAUSEA, Verified 08/06/20 08:49 DIZZINESS, ESOPHAGITIS meclizine [MECLIZINE] AdvReac Severe NAUSEA, Verified 08/06/20 08:49 DIZZINESS AND ESOPHAGITIS shellfish derived AdvReac Severe (SHRIMP) Verified 08/06/20 08:49 [SHELLFISH DERIVED] VOMITING Review of Systems <ROB Sheth - Last Filed: 08/27/20 23:24> Review of Systems Narrative: General: Denies fever, chills, fatigue, malaise, sweats. HEENT: Denies sinus pain, ear pain, sore throat, difficulty swallowing, dizziness. Respiratory: Denies dyspnea, cough, wheezing, hemoptysis, sputum. Cardiovascular: See HPI Gastrointestinal: Denies nausea, vomiting, abdominal pain, diarrhea, constipation, melena. : Denies dysuria, frequency, incontinence, hematuria, urinary retention. Musculoskeletal: Denies weakness, joint pain or bony pain. Skin: Denies rash, skin lesions, or other. Neurologic: Denies weakness, headache, numbness, change in speech, confusion, seizures, incoordination. Psychiatric: No concerning psychosocial issues. 12-point review of systems is negative except for those stated above. Patient History <ROB Sheth - Last Filed: 08/27/20 23:24> Medical History Adverse drug reaction (Inactive) Allergic rhinitis (Chronic Unknown) Arthritis (Resolved 04/2006) Dental infection (Acute) Endometrial polyp (Resolved Unknown) Esophagitis, acute (Inactive) History of hyperglycemia (Acute) Hx of pilonidal cyst (Resolved 1953) Memory problem (Acute) Muscle strain of anterior chest wall (Acute) Nausea (Acute) Vertigo (Resolved ~2011) Surgical History H/O endoscopy (Acute) History of third molar tooth extraction Status post dilation and curettage (01/13/10) Status post tonsillectomy and adenoidectomy Family History Father Cancer Mother Pneumonia Social History Smoking Status: Never smoker Smoking Status: Never smoker alcohol intake frequency: 0-2 drinks per day Substance Use Type: does not use Exam <ROB Sheth - Last Filed: 08/27/20 23:24> Narrative Exam Narrative: GEN: Alert, oriented x 3, well appearing and thin, and in no acute distress. Head: Normal cephalic, atraumatic. No scalp or temporal tenderness, palpable mass or rash. EYES: Pupils are equal, round, and reactive to light and accommodation. Extraocular muscles are intact bilaterally. There is no subconjunctival hemorrhage, exudate and sclera non-icteric. ENT: Hearing grossly intact. Nose without bleeding, purulent discharge or deviation. Mucous membrane moist, no mucosal lesion. Throat without erythema, tonsillar hypertrophy or exudate. Uvula in midline, airway patent. Neck: Trachea in midline. No JVD, non-tender without lymphadenopathy. No masses or thyroid megaly. Supple, non-tender and no meningeal signs. CARDIAC: Normal regular rate and rhythm without murmurs, gallops, or rubs. No chest wall tenderness. No peripheral edema, cyanosis or pallor. Capillary refill is less than 2 seconds. RESPIRATORY: Lungs are clear to auscultate bilaterally. No cough, wheezes, rales, or rhonchi. No stridor, respiratory distress, increase work of breathing, or accessary muscle used. ABD: Abdomen soft, nontender and non-distended. No guarding or rebound tenderness to palpate. Bowel sounds are normal in all 4 quadrants. There is no palpable masses or organomegaly. EXT: Full painless ROM of all extremities with no loss of sensation, strength, effusion or edema. SKIN: Warm, dry, normal color for patient. No erythema, lesions or rash over visible areas. BACK: Nontender without deformity or crepitance. No flank tenderness. NEUROLOGICAL: Alert and oriented to place, time and person. Sensation and motor function intact bilaterally. No facial droops, dysphasia. PSYCHIATRIC: Good judgement and reason, without hallucinations, abnormal affect or abnormal behaviors during the examination. Patient is not suicidal. Initial Vital Signs Initial Vital Signs: Vital Signs Temperature 97.9 F 08/27/20 14:45 Pulse Rate 75 08/27/20 14:45 Respiratory Rate 16 08/27/20 14:45 Blood Pressure 161/67 H 08/27/20 14:45 Pulse Oximetry 100 08/27/20 14:45 <Judd Granados MD - Last Filed: 08/30/20 13:02> Initial Vital Signs Initial Vital Signs: Vital Signs Temperature 97.9 F 08/27/20 14:45 Pulse Rate 75 08/27/20 14:45 Respiratory Rate 16 08/27/20 14:45 Blood Pressure 161/67 H 08/27/20 14:45 Pulse Oximetry 100 08/27/20 14:45 Scores <ROB Sheth - Last Filed: 08/27/20 23:24> GCS Darren coma scale eye opening: Spontaneous Darren coma scale verbal response: Orientated Darren coma scale motor response: Obey commands [place] coma scale total score: 15 HEART Score Heart Score history: Slightly Suspicious Heart Score EKG: Normal Heart Score Age: > or = 65 years old Heart Score risk factors: No known risk factors Heart Score troponin: < or = to normal limit Heart Score Total: 2 Course <ROB Sheth - Last Filed: 08/27/20 23:24> Orders Ordered: ED Orders 08/27/20 14:48 XR chest 1V Stat EKG-12 Lead Stat 08/27/20 14:57 Complete Blood Count AUTO DIFF Stat Comprehensive Metabolic Panel Stat Lipase Stat Partial Thromboplastin Time Stat Prothrombin Time INR Stat Troponin & CK Cardiac Panel Stat 08/27/20 17:00 Trop I [Troponin I] Stat Vital Signs Vital signs: Vital Signs - 8 hr 08/27/20 15:15 08/27/20 16:00 08/27/20 17:08 Pulse Rate 80 76 78 Respiratory Rate 16 16 16 Blood Pressure 158/68 H 138/70 139/97 H Pulse Oximetry 97 97 97 <Judd Granados MD - Last Filed: 08/30/20 13:02> Orders Ordered: ED Orders 08/27/20 14:48 XR chest 1V Stat EKG-12 Lead Stat 08/27/20 14:57 Complete Blood Count AUTO DIFF Stat Comprehensive Metabolic Panel Stat Lipase Stat Partial Thromboplastin Time Stat Prothrombin Time INR Stat Troponin & CK Cardiac Panel Stat 08/27/20 17:00 Trop I [Troponin I] Stat Vital Signs Vital signs: Vital Signs - 8 hr 08/27/20 15:15 08/27/20 16:00 08/27/20 17:08 Pulse Rate 80 76 78 Respiratory Rate 16 16 16 Blood Pressure 158/68 H 138/70 139/97 H Pulse Oximetry 97 97 97 MDM - Chest Pain <Nick RichieROB - Last Filed: 08/27/20 23:24> Differential Diagnosis Differential diagnosis: Likely pneumothorax, atypical chest pain, costochondritis and other (GERD, anxiety) Medical Records Data Attestation: I reviewed the patient's medical records. Lab Data Attestation: I reviewed the patient's lab results. Result diagrams: 08/27/20 14:57 08/27/20 14:57 Labs: Lab Results 08/27/20 08/27/20 08/27/20 Range/Units 14:57 14:57 14:57 WBC 4.8 (4.5-11.0) X10^3/uL RBC 4.27 (4.0-5.2) X10^6/uL Hgb 12.4 (12.0-16.0) g/dL Hct 36.9 (36-46) % MCV 86.4 (80-100) fL MCH 29.0 (26-34) PG MCHC 33.5 (30-36) % RDW 14.1 (11.6-14.8) % Plt Count 219 (150-400) X10^3/uL Neut % (Auto) 54.4 (50-75) % Lymph % (Auto) 31.2 (25-40) % Bill[place] % (Auto) 8.8 (3-14) % Eos % (Auto) 4.4 H (2-4) % Baso % (Auto) 1.2 (0-2) % Neut # (Auto) 2600 (3270-6414) /uL Lymph # (Auto) 1500 (3369-2729) /uL Bill[place] # (Auto) 400 (0-900) /uL Eos # (Auto) 200 (0-450) /uL Baso # (Auto) 100 (0-100) /uL PT 9.9 L (10.1-12.7) SECONDS INR 0.9 (0.9-1.3) APTT 28 (26.4-36.2) SECONDS Sodium 137 (137-145) mmol/L Potassium 3.7 (3.4-5.1) mmol/L Chloride 106 (98-107) mmol/L Carbon Dioxide 29 (22-32) mmol/L BUN 21 H (7-17) mg/dL Creatinine 0.54 (0.52-1.04) mg/dL Estimated GFR > 60.0 (>60) mL/min BUN/Creatinine Ratio 38.9 H (6-22) Glucose 132 H (80-110) mg/dL Calcium 8.8 (8.4-10.2) mg/dL Total Bilirubin 0.5 (0.2-1.3) mg/dL AST 35 (14-36) IU/L ALT 20 (<35) IU/L Alkaline Phosphatase 50 (38-126) U/L Total Creatine Kinase 73 (30-135) U/L CK-MB (CK-2) TNP CK-MB (CK-2) Rel Index TNP Troponin I < 0.012 (0.01-0.034) ng/mL Total Protein 6.3 (6.3-8.2) g/dL Albumin 3.9 (3.5-5.0) g/dL Globulin 2.4 (1.7-4.1) g/dL Albumin/Globulin Ratio 1.6 (1.0-2.8) Lipase 136 (23-300) U/L 08/27/20 Range/Units 17:00 WBC (4.5-11.0) X10^3/uL RBC (4.0-5.2) X10^6/uL Hgb (12.0-16.0) g/dL Hct (36-46) % MCV (80-100) fL MCH (26-34) PG MCHC (30-36) % RDW (11.6-14.8) % Plt Count (150-400) X10^3/uL Neut % (Auto) (50-75) % Lymph % (Auto) (25-40) % Bill[place] % (Auto) (3-14) % Eos % (Auto) (2-4) % Baso % (Auto) (0-2) % Neut # (Auto) (4011-4830) /uL Lymph # (Auto) (6054-7445) /uL Bill[place] # (Auto) (0-900) /uL Eos # (Auto) (0-450) /uL Baso # (Auto) (0-100) /uL PT (10.1-12.7) SECONDS INR (0.9-1.3) APTT (26.4-36.2) SECONDS Sodium (137-145) mmol/L Potassium (3.4-5.1) mmol/L Chloride (98-107) mmol/L Carbon Dioxide (22-32) mmol/L BUN (7-17) mg/dL Creatinine (0.52-1.04) mg/dL Estimated GFR (>60) mL/min BUN/Creatinine Ratio (6-22) Glucose (80-110) mg/dL Calcium (8.4-10.2) mg/dL Total Bilirubin (0.2-1.3) mg/dL AST (14-36) IU/L ALT (<35) IU/L Alkaline Phosphatase (38-126) U/L Total Creatine Kinase (30-135) U/L CK-MB (CK-2) CK-MB (CK-2) Rel Index Troponin I < 0.012 (0.01-0.034) ng/mL Total Protein (6.3-8.2) g/dL Albumin (3.5-5.0) g/dL Globulin (1.7-4.1) g/dL Albumin/Globulin Ratio (1.0-2.8) Lipase (23-300) U/L Imaging Data Chest x-ray: Radiologist's Impression: [address] [address] XRay Report Signed Patient: Mariela Banks EMR#: [id number] : 1935cct:[id number] Age/Sex: 85 / FDate of Service: 08/27/20 Loc: ED Accession Number: [id number] Procedure: XR chest 1V Ordering Provider: Judd Granados MD PROCEDURE: XR CHEST 1V INDICATIONS: chest pain TECHNIQUE: One view of the chest was acquired. COMPARISON: [facility], CR, XR CHEST 1V, 05/17/2020, 13:11. [facility], CR, CHEST 1 VIEW, 01/17/2012, 8:24. [facility], CR, CHEST 2 VIEW, 01/08/2009, 7:26. [facility], CR, XR CHEST 1V, 07/08/2020, 12:38. FINDINGS: Surgical changes and devices: None. Lungs and pleura: Lungs are clear. No pleural effusions or pneumothorax. Mediastinum: Mediastinal contours appear normal. Heart size is normal. Bones and chest wall: No suspicious bony lesions. Overlying soft tissues appear unremarkable. IMPRESSION: No acute cardiopulmonary abnormality. Dictated by: John Montague M.D. on 08/27/2020 at 15:31 Approved by: John Montague M.D. on 08/27/2020 at 15:32 ECG Data Attestation: I personally reviewed and interpreted this ECG as follows: Prior ECG tracings: available for review Interpretation: Sinus rhythm rate at 73. Left dominant axis. Low QRS 40s in precordial leads. No acute ST changes. MDM Narrative Medical decision making narrative: This is a 85-year-old female who presents to ED with chief complain of left-sided sharp chest discomfort which lasted for 2 minutes after she was getting up from a nap without any other associated cardiac symptoms. Patient denies any symptoms at this time but would like to get checked out if this is cardiac related chest pain. Patient has been visiting ED Several times in the past with atypical chest pain and nausea. EKG was sinus rhythm rate at [address] changes. Heart score is 2. Patient was slightly hypertensive when arrived with heart rate in 70s with normal respiration rate and O2 said at home 100%. She is afebrile. Chest x-ray shows no acute findings. CBC with stable H&H of 12.4/36.9. Unremarkable coags test. Appears to be patient is mildly dehydrated with elevated BUN of 21 and BUN/creatinine ratio of 38.9. Slightly elevated glucose of 132 today. Two sets of cardiac enzymes were negative. Normal lipase. The patient has no recurring chest pain in ED and she states will like to go home before the 2nd cardiac enzyme returned. Considered medicating patient with Protonix for possible GERD but she was no longer had recurring chest pain. Return precautions were discussed with patient and patient verbalized understanding in agreement with treatment plan. <Judd Granados MD - Last Filed: 08/30/20 13:02> Lab Data Labs: Lab Results 08/27/20 08/27/20 08/27/20 Range/Units 14:57 14:57 14:57 WBC 4.8 (4.5-11.0) X10^3/uL RBC 4.27 (4.0-5.2) X10^6/uL Hgb 12.4 (12.0-16.0) g/dL Hct 36.9 (36-46) % MCV 86.4 (80-100) fL MCH 29.0 (26-34) PG MCHC 33.5 (30-36) % RDW 14.1 (11.6-14.8) % Plt Count 219 (150-400) X10^3/uL Neut % (Auto) 54.4 (50-75) % Lymph % (Auto) 31.2 (25-40) % Bill[place] % (Auto) 8.8 (3-14) % Eos % (Auto) 4.4 H (2-4) % Baso % (Auto) 1.2 (0-2) % Neut # (Auto) 2600 (5128-2932) /uL Lymph # (Auto) 1500 (3059-6046) /uL [place] # (Auto) 400 (0-900) /uL Eos # (Auto) 200 (0-450) /uL Baso # (Auto) 100 (0-100) /uL PT 9.9 L (10.1-12.7) SECONDS INR 0.9 (0.9-1.3) APTT 28 (26.4-36.2) SECONDS Sodium 137 (137-145) mmol/L Potassium 3.7 (3.4-5.1) mmol/L Chloride 106 (98-107) mmol/L Carbon Dioxide 29 (22-32) mmol/L BUN 21 H (7-17) mg/dL Creatinine 0.54 (0.52-1.04) mg/dL Estimated GFR > 60.0 (>60) mL/min BUN/Creatinine Ratio 38.9 H (6-22) Glucose 132 H (80-110) mg/dL Calcium 8.8 (8.4-10.2) mg/dL Total Bilirubin 0.5 (0.2-1.3) mg/dL AST 35 (14-36) IU/L ALT 20 (<35) IU/L Alkaline Phosphatase 50 (38-126) U/L Total Creatine Kinase 73 (30-135) U/L CK-MB (CK-2) TNP CK-MB (CK-2) Rel Index TNP Troponin I < 0.012 (0.01-0.034) ng/mL Total Protein 6.3 (6.3-8.2) g/dL Albumin 3.9 (3.5-5.0) g/dL Globulin 2.4 (1.7-4.1) g/dL Albumin/Globulin Ratio 1.6 (1.0-2.8) Lipase 136 (23-300) U/L 08/27/20 Range/Units 17:00 WBC (4.5-11.0) X10^3/uL RBC (4.0-5.2) X10^6/uL Hgb (12.0-16.0) g/dL Hct (36-46) % MCV (80-100) fL MCH (26-34) PG MCHC (30-36) % RDW (11.6-14.8) % Plt Count (150-400) X10^3/uL Neut % (Auto) (50-75) % Lymph % (Auto) (25-40) % Bill[place] % (Auto) (3-14) % Eos % (Auto) (2-4) % Baso % (Auto) (0-2) % Neut # (Auto) (4261-3951) /uL Lymph # (Auto) (5150-1950) /uL Bill[place] # (Auto) (0-900) /uL Eos # (Auto) (0-450) /uL Baso # (Auto) (0-100) /uL PT (10.1-12.7) SECONDS INR (0.9-1.3) APTT (26.4-36.2) SECONDS Sodium (137-145) mmol/L Potassium (3.4-5.1) mmol/L Chloride (98-107) mmol/L Carbon Dioxide (22-32) mmol/L BUN (7-17) mg/dL Creatinine (0.52-1.04) mg/dL Estimated GFR (>60) mL/min BUN/Creatinine Ratio (6-22) Glucose (80-110) mg/dL Calcium (8.4-10.2) mg/dL Total Bilirubin (0.2-1.3) mg/dL AST (14-36) IU/L ALT (<35) IU/L Alkaline Phosphatase (38-126) U/L Total Creatine Kinase (30-135) U/L CK-MB (CK-2) CK-MB (CK-2) Rel Index Troponin I < 0.012 (0.01-0.034) ng/mL Total Protein (6.3-8.2) g/dL Albumin (3.5-5.0) g/dL Globulin (1.7-4.1) g/dL Albumin/Globulin Ratio (1.0-2.8) Lipase (23-300) U/L Discharge Plan Departure Patient Disposition: Home Clinical Impression: Atypical chest pain Discharge Date/Time: 08/27/20 17:53 Instructions: DI for Atypical Chest Pain Activity Restrictions/Additional Instructions: You have been diagnosed with [atypical chest pain which lasted for 2 minutes before coming into ED. EKG and lab tests are assuring. No signs of heart attack at this time.]. What to do: *Take your medications as directed. *Follow up with your primary care provider in 2-3 days, call for an appointment. Let them know you were seen in the ED and that we asked you to be seen in follow up. *Return to ED if you have any new, worsening, or concerning symptoms, such as [worsening pain or different chest pain, breathing difficulty, fever, cough, rash on her back or chest, nausea or vomiting, cold sweats or any acute concerns]. Prescriptions: No Action COENZYME Q10/VITAMIN E (CO-Q-10 100mg) 100 mg PO QDAY Qty: 0 RF: 0 [FLAX SEED] PO QDAY Qty: 0 RF: 0 [VITAMIN B-12] 2,000 iu PO QDAY Qty: 0 RF: 0 [VITAMIN D3] 1,000 iu PO BID Qty: 0 RF: 0 promethazine 12.5 mg suppository 12.5 mg KS Q12H PRN (Reason: nausea and vomiting) Qty: 10 RF: 0 ondansetron 4 mg tablet,disintegrating 4 mg PO BID PRN (Reason: nausea and vomiting) Qty: 30 RF: 0 metoclopramide HCl [Reglan] 10 mg tablet 10 mg PO Q6H PRN (Reason: nausea and vomiting) Qty: 30 RF: 1 magnesium oxide 500 mg capsule 500 mg PO DAILY RF: 0 omeprazole 20 mg capsule,delayed release(DR/EC) 20 mg PO DAILY Qty: 30 RF: 0 lidocaine 5 % adhesive patch,medicated 1 patch TOP DAILY Qty: 15 RF: 0 sertraline [Zoloft] 25 mg tablet 25 mg PO DAILY Qty: 30 RF: 1 Referrals: Kurt Matthew ARNP [Primary Care Provider] - <Judd Granados MD - Last Filed: 08/30/20 13:02> Cosign ED Attending Cosignature Attestation: I was immediately available in the department for consultation. This documentation has been reviewed and I agree with assessment and plan. Supervised by Judd Granados MD
[2020-08-27 17:08] VITALS: BP 139/97; PULSE 78; RESP 16; O2SAT 97
[2020-08-27 17:39] LABS: Troponin I < 0.012 ng/mL (0.01-0.034)
== END 2020-08-27 17:53 | disposition home or self-care (01) ==
PROVIDERS: Emergency Medicine; Emergency Provider Nurse Practitioner Family; Family Provider Physician Assistant; PCP Registered Nurse Diabetes Educator
DX: R07.89 Other chest pain (principal)
CPT/HCPCS: 36415; 71045; 80053; 82550; 83690; 84484; 85025; 85610; 85730; 93005; 99284

== ENCOUNTER → 2020-11-27 08:50 | Outpatient (CLI) | payer MEDICARE, MEDICAID, SELFPAY ==
[2020-11-27 09:50] LABS: Add Manual Diff / Slide Review NO; Basophils Absolute Auto 0 /uL (0-100); Basophils Percent Auto 0.8 % (0-2); Eosinophils Absolute Auto 100 /uL (0-450); Eosinophils Percent Auto 1.8 % (2-4); Hemoglobin 12.9 g/dL (12.0-16.0); Lymphocytes Absolute Auto 1300 /uL (1100-4500); Lymphocytes Percent Auto 27.2 % (25-40); Mean Corpuscular HGB Conc 33.9 % (30-36); Mean Corpuscular Hemoglobin 29.2 PG (26-34); Mean Corpuscular Volume 86.2 fL (80-100); Monocytes Absolute Auto 400 /uL (0-900); Monocytes Percent Auto 8.7 % (3-14); Neutrophils Absolute Auto 3000 /uL (1500-7000); Neutrophils Percent Auto 61.5 % (50-75); Platelet Count 215 X10^3/uL (150-400); Red Blood Cell Count 4.41 X10^6/uL (4.0-5.2); Red Cell Distribution Width 13.7 % (11.6-14.8); White Blood Cell Count 4.9 X10^3/uL (4.5-11.0)
== END ==
PROVIDERS: Family Provider Physician Assistant; PCP Registered Nurse Diabetes Educator; Referring Provider Family Medicine; Visit Provider Family Medicine
DX: K92.1 Melena (principal)
CPT/HCPCS: 36415; 85025

== ENCOUNTER → 2020-11-29 08:08 | Outpatient (CLI) | payer MEDICARE, MEDICAID, SELFPAY ==
[2020-12-02 13:09] LABS: Fecal Immunochemical Test Negative (Negative)
== END ==
PROVIDERS: Family Provider Physician Assistant; PCP Family Medicine; Referring Provider Family Medicine; Visit Provider Family Medicine
DX: K92.1 Melena (principal)
CPT/HCPCS: 82274

== ENCOUNTER 2020-11-30 15:27 | Emergency (ER) | payer MEDICARE, MEDICAID, SELFPAY ==
[2020-11-30 15:40] VITALS: BP 143/70; PULSE 67; RESP 16; TEMP 36.8; O2SAT 97; BMI 21.6
--- NOTE | 2020-11-30 16:32 | ED_ITS ---
HPI - GI Bleed General Chief complaint: GI Bleed Stated complaint: dark black stool, not sleeping Time Seen by Provider: 11/30/20 15:43 History of Present Illness HPI Narrative: 85-year-old woman with increasing memory difficulties and significant anxiety over multiple medical issues including insomnia, nausea, black stools all of which have been complaints for an extended period of time with full workup and no obvious findings to explain any. She does note that she takes Pepto-Bismol and she is guaiac negative with recent blood work that indicates an increase in hematocrit when she saw her primary care physician for the same complaints. Related Data Home Medications Medication Instructions Recorded Confirmed COENZYME Q10/VITAMIN E (CO-Q-10 100 mg PO QDAY #0 12/28/12 11/27/20 100mg) [FLAX SEED] PO QDAY #0 12/14/16 11/27/20 [VITAMIN B-12] 2,000 iu PO QDAY #0 12/14/16 11/27/20 [VITAMIN D3] 1,000 iu PO BID #0 12/14/16 11/27/20 magnesium oxide 500 mg capsule 500 mg PO DAILY cap 03/22/19 11/27/20 Acid Rescue 2,000 mg PO .After Meals 11/20/20 11/27/20 Arnicare Gel See Rx Instructions TOPICAL BEDTIME 11/20/20 11/27/20 bismuth subsalicylate 262 mg tablet 2 tab PO Q30M PRN 11/20/20 11/27/20 sodium citrate 230 mg chewable 230 mg PO DAILY tab 11/20/20 11/27/20 tablet Previous Rx's Medication Instructions Recorded metoclopramide HCl 10 mg tablet 10 mg PO Q6H PRN #30 tab 08/16/20 Allergies Allergy/AdvReac Type Severity Reaction Status Date / Time metronidazole Allergy Mild nausea Verified 11/27/20 08:19 amoxicillin [AMOXICILLIN] AdvReac Severe NAUSEA, Verified 11/27/20 08:19 DIZZINESS AND ESOPHAGITIS clindamycin [CLINDAMYCIN] AdvReac Severe NAUSEA, Verified 11/27/20 08:19 DIZZINESS, ESOPHAGITIS meclizine [MECLIZINE] AdvReac Severe NAUSEA, Verified 11/27/20 08:19 DIZZINESS AND ESOPHAGITIS shellfish derived AdvReac Severe (SHRIMP) Verified 11/27/20 08:19 [SHELLFISH DERIVED] VOMITING Review of Systems Review of Systems ROS Unobtainable: All systems reviewed & are unremarkable except as noted in HPI and below Patient History Medical History Adverse drug reaction Allergic rhinitis (Unknown) Arthritis (04/2006) Dental infection Endometrial polyp (Unknown) Esophagitis, acute History of hyperglycemia Hx of pilonidal cyst (1953) Insomnia Memory problem Muscle strain of anterior chest wall Nausea Vertigo (~2011) Surgical History H/O endoscopy History of third molar tooth extraction Status post dilation and curettage (01/13/10) Status post tonsillectomy and adenoidectomy Family History Father Cancer Mother Pneumonia Social History Smoking Status: Never smoker Smoking Status: Never smoker alcohol intake frequency: 0-2 drinks per day Substance Use Type: does not use Exam Narrative Exam Narrative: General: Alert appropriate in no acute distress Respiratory: Able to speak in full sentences, no obvious respiratory distress Skin: No obvious rashes, warm and dry Neurologic: Grossly intact no obvious asymmetries or abnormalities Psych: cooperative, poor overall insight and fixed delusional thinking regarding multiple medical issues Rectal exam: Black stool, guaiac negative Initial Vital Signs Initial Vital Signs: Vital Signs Temperature 98.2 F 11/30/20 15:40 Pulse Rate 67 11/30/20 15:40 Respiratory Rate 16 11/30/20 15:40 Blood Pressure 143/70 H 11/30/20 15:40 Pulse Oximetry 97 11/30/20 15:40 Course Vital Signs Vital signs: Vital Signs - 8 hr 11/30/20 15:40 11/30/20 16:51 Temperature 98.2 F Pulse Rate 67 70 Respiratory Rate 16 16 Blood Pressure 143/70 H Pulse Oximetry 97 97 MDM - GI Bleed MDM Narrative Medical decision making narrative: Pleasant 85-year-old woman presenting with complaints for which she has been seen multiple times including this a couple of days ago by her primary care physician she is concerned that she has black stoo l. It guaiac negative. She takes iron, uses Pepto-Bismol regularly and blood work done 3 days ago by her primary care physician indicates that her hematocrit is actually increasing. Reassurance is given to her that she is not bleeding internally. She again asks for help with nausea and insomnia and again we discussed the in appropriate use of sleep aids at all much less at 85 and the fact that she has had every medicine possible to help with her nausea that has all been ineffective for her. She is discharged home in stable condition with instructions follow-up with her primary care physician Discharge Plan Departure Patient Disposition: Home Clinical Impression: Memory problem, Nausea, Change in stool Insomnia Qualifiers: Insomnia type: unspecified Qualified Code(s): G47.00 - Insomnia, unspecified Instructions: DI for Insomnia Activity Restrictions/Additional Instructions: Your black stools are likely a result of your Pepto-Bismol. Iron can cause stools to be black as well. You had blood work done 3 days ago that showed slight increase in your red blood cell count. You are not having any internal bleeding. It is okay to take Pepto-Bismol as needed Regarding your nausea, I know that we have tried multiple options and at this point I have no further suggestions for you. I do understand how frustrating it can be when your chronically nauseated. With sleep, in general sleeping pills generally do not actually help. As your age increases the risk of falling and having other significant complications related to sleeping pills goes up significantly. It would not be safe to give y ou sleeping pills. Continue melatonin can be done. Looking at overall sleep hygiene is going to be important. Making sure that your trying to get up at the same time every morning and to go to bed approximately the same time each night and avoiding daytime naps so that your tired at bedtime. Please review this with your primary care physician Prescriptions: No Action COENZYME Q10/VITAMIN E (CO-Q-10 100mg) 100 mg PO QDAY Qty: 0 RF: 0 [FLAX SEED] PO QDAY Qty: 0 RF: 0 [VITAMIN B-12] 2,000 iu PO QDAY Qty: 0 RF: 0 [VITAMIN D3] 1,000 iu PO BID Qty: 0 RF: 0 metoclopramide HCl [Reglan] 10 mg tablet 10 mg PO Q6H PRN (Reason: nausea and vomiting) Qty: 30 RF: 1 magnesium oxide 500 mg capsule 500 mg PO DAILY RF: 0 Nauzene Upset Stomach-Nausea 230 mg tablet,chewable 230 mg PO DAILY RF: 0 Pepto-Bismol 262 mg tablet 2 tab PO Q30M PRN (Reason: diarrhea) RF: 0 Acid Rescue 2,000 mg PO .After Meals RF: 0 Arnicare Gel See Rx Instructions topical BEDTIME RF: 0 Referrals: Jarad Van MD [Primary Care Provider] -
[2020-11-30 16:51] VITALS: PULSE 70; RESP 16; O2SAT 97
== END 2020-11-30 16:52 | disposition home or self-care (01) ==
PROVIDERS: Emergency Provider Emergency Medicine; Family Provider Physician Assistant; PCP Family Medicine
DX: R19.4 Change in bowel habit (principal); R11.0 Nausea; G47.00 Insomnia, unspecified; R41.3 Other amnesia
CPT/HCPCS: 99281

== ENCOUNTER → 2020-12-11 14:49 | Outpatient (CLI) | payer MEDICARE, MEDICAID, SELFPAY ==
[2020-12-11] MEDS: COVID-19 VACC #1, MRNA(MOD) 100 MCG/0.5 ML VIAL IM (14:57)
== END ==
PROVIDERS: Family Provider Physician Assistant; PCP Family Medicine; Visit Provider Internal Medicine
DX: Z23 Encounter for immunization (principal)
CPT/HCPCS: 0011A; 91301

== ENCOUNTER → 2020-12-12 08:05 | Outpatient (CLI) | payer MEDICARE, MEDICAID, SELFPAY ==
[2020-12-12 11:20] LABS: COVID19 -Nasal RAPID Negative (Negative)
== END ==
PROVIDERS: Family Provider Physician Assistant; PCP Family Medicine; Visit Provider Family Medicine Sleep Medicine
DX: Z20.822 Contact with and (suspected) exposure to COVID-19 (principal)
CPT/HCPCS: 87635; C9803

== ENCOUNTER → 2021-01-08 07:48 | Outpatient (CLI) | payer MEDICARE, MEDICAID, SELFPAY ==
[2021-01-08] MEDS: COVID-19 VACC #2, MRNA(MOD) 100 MCG/0.5 ML VIAL IM (07:58)
== END ==
PROVIDERS: Family Provider Physician Assistant; PCP Family Medicine; Visit Provider Internal Medicine
DX: Z23 Encounter for immunization (principal)
CPT/HCPCS: 0012A; 91301

== ENCOUNTER 2021-01-17 07:25 | Emergency (ER) | payer MEDICARE, MEDICAID, SELFPAY ==
[2021-01-17 07:37] VITALS: BP 137/70; PULSE 70; O2SAT 99
[2021-01-17 07:38] VITALS: BP 137/70; PULSE 67; RESP 16; TEMP 36.6; O2SAT 99
[2021-01-17 07:40] VITALS: BP 137/70; PULSE 66; RESP 16; TEMP 36.6; O2SAT 100; BMI 21.6
--- NOTE | 2021-01-17 07:49 | ED_ITS ---
HPI - General Adult General Chief complaint: Nausea/Vomiting/Diarrhea Stated complaint: severe nausea x 3 day Time Seen by Provider: 01/17/21 07:40 Source: patient Mode of arrival: Ambulatory Limitations: no limitations History of Present Illness HPI narrative: Patient is an 85-year-old female who according to her records has had a longstanding history of nausea. She has been seen in this emergency department apparently in other emergency departments in the past for the symptoms. According to her medical record she has a prescription for Reglan and Zofran. She also uses Pepto-Bismol. Review of her radiologic studies here at this facility shows multiple x-rays however do not see any CT scans. Patient is unsure she has ever had a CT scan. She states that she has had scopes before but that was ?many years ago ?she states that her nausea seems to go in waves and it has reoccurred about 3 days ago. States she could not sleep last night because the nausea. Review of her primary doctor's notes shows that she has had issues with insomnia and anxiety mostly related to the symptoms she presents with today. She denies any vomiting. No change in her stool. No abdominal pain. She states that her only symptoms nausea. Related Data Home Medications Medication Instructions Recorded Confirmed COENZYME Q10/VITAMIN E (CO-Q-10 100 mg PO QDAY #0 12/28/12 01/15/21 100mg) [FLAX SEED] PO QDAY #0 12/14/16 01/15/21 [VITAMIN B-12] 2,000 iu PO QDAY #0 12/14/16 01/15/21 [VITAMIN D3] 1,000 iu PO BID #0 12/14/16 01/15/21 magnesium oxide 500 mg capsule 500 mg PO DAILY cap 03/22/19 01/15/21 Acid Rescue 2,000 mg PO .After Meals 11/20/20 01/15/21 Arnicare Gel See Rx Instructions TOPICAL BEDTIME 11/20/20 01/15/21 bismuth subsalicylate 262 mg tablet 2 tab PO Q30M PRN 11/20/20 01/15/21 sodium citrate 230 mg chewable 230 mg PO DAILY tab 11/20/20 01/15/21 tablet Previous Rx's Medication Instructions Recorded metoclopramide HCl 10 mg tablet 10 mg PO Q6H PRN #30 tab 08/16/20 zolpidem 5 mg tablet 5 mg PO BEDTIME PRN #30 tab 12/27/20 ondansetron 4 mg disintegrating See Rx Instructions .ROUTE 01/13/21 tablet .COMPLEX #60 tab Allergies Allergy/AdvReac Type Severity Reaction Status Date / Time metronidazole Allergy Mild nausea Verified 01/17/21 07:56 amoxicillin [AMOXICILLIN] AdvReac Severe NAUSEA, Verified 01/17/21 07:56 DIZZINESS AND ESOPHAGITIS clindamycin [CLINDAMYCIN] AdvReac Severe NAUSEA, Verified 01/17/21 07:56 DIZZINESS, ESOPHAGITIS meclizine [MECLIZINE] AdvReac Severe NAUSEA, Verified 01/17/21 07:56 DIZZINESS AND ESOPHAGITIS shellfish derived AdvReac Severe (SHRIMP) Verified 01/17/21 07:56 [SHELLFISH DERIVED] VOMITING Review of Systems Constitutional Constitutional: Denies fever(s) and Denies headache(s) ENT Ears, Nose, Mouth, and Throat: Denies headache(s) Cardiovascular Cardiovascular: Denies chest pain and Denies dyspnea Respiratory Respiratory: Denies dyspnea Gastrointestinal Gastrointestinal: Denies abdominal pain, Denies change in bowel habits, Denies constipation, Denies diarrhea, Reports nausea and Denies vomiting Genitourinary Genitourinary: Denies dysuria Genitourinary: Denies dysuria Musculoskeletal Musculoskeletal: Denies arthralgias and Denies myalgias Integumentary/Breasts Skin/Breast: Denies rash Neurologic Neurologic: Denies headache(s) Comments: Insomnia Psychiatric Comments: Insomnia Hematologic/Lymphatic Hematologic/Lymphatic: Denies easy bleeding and Denies easy bruising On Anticoagulants: No Allergic/Immunologic Allergic/Immunologic: Denies urticaria Patient History Medical History Adverse drug reaction Allergic rhinitis (Unknown) Arthritis (04/2006) Dental infection Endometrial polyp (Unknown) Esophagitis, acute History of hyperglycemia Hx of pilonidal cyst (1953) Insomnia, psychophysiological Memory problem Muscle strain of anterior chest wall Nausea Vertigo (~2011) Surgical History H/O endoscopy History of third molar tooth extraction Status post dilation and curettage (01/13/10) Status post tonsillectomy and adenoidectomy Family History Father Cancer Mother Pneumonia Social History Smoking Status: Never smoker Smoking Status: Never smoker alcohol intake frequency: 0-2 drinks per day Substance Use Type: does not use Exam Initial Vital Signs Initial Vital Signs: Vital Signs Pulse Rate 70 01/17/21 07:37 Blood Pressure 137/70 01/17/21 07:37 Pulse Oximetry 99 01/17/21 07:37 Const General: cooperative and comfortable Limitations: mental status not altered HENMT Head: normal to inspection and normocephalic Resp Effort & Inspection: normal respiratory effort Auscultation: clear to auscultation bilaterally Cardio Rate: regular rate Rhythm: regular rhythm GI Inspection: non-distended Palpation: soft and No tender Skin Lesions: no lesions Rashes: no rashes Neuro General: patient alert and patient awake Cognition: normal cognition Speech: speech normal Gait: normal gait Extrem General: normal to inspection and capillary refill normal Psych Appearance: grossly normal and well kempt Course Orders Ordered: ED Orders 01/17/21 07:45 Complete Blood Count AUTO DIFF Stat Comprehensive Metabolic Panel Stat Lipase Stat Troponin & CK Cardiac Panel Stat 01/17/21 08:19 CT abdomen pelvis w con Stat Discontinued Medications Sodium Chloride (Normal Saline 0.9%) 1,000 mls @ 1,000 mls/hr IV BOLUS ONE Stop: 01/17/21 08:47 Last Infusion: 01/17/21 09:04 Dose: 0 mls/hr Documented by: Admin: 01/17/21 08:00 Dose: 1,000 mls/hr Documented by: LOURDES Ondansetron HCl (Ondansetron 4 Mg/2 Ml Inj) 4 mg IV NOW ONE Stop: 01/17/21 07:49 Last Admin: 01/17/21 08:01 Dose: 4 mg Documented by: LOURDES Vital Signs Vital signs: Vital Signs - 8 hr 01/17/21 07:37 01/17/21 07:38 01/17/21 07:40 Temperature 97.9 F 97.9 F Pulse Rate 70 67 66 Respiratory Rate 16 16 Blood Pressure 137/70 137/70 137/70 Pulse Oximetry 99 99 100 01/17/21 08:00 01/17/21 08:30 Temperature Pulse Rate 68 66 Respiratory Rate Blood Pressure 129/67 131/63 Pulse Oximetry 100 100 Medical Decision Making Lab Data Lab results reviewed: Yes I reviewed the patient's lab results. Result diagrams: 01/17/21 07:45 01/17/21 07:45 Labs: Lab Results 01/17/21 01/17/21 01/17/21 Range/Units 07:45 07:45 07:45 WBC 4.9 (4.5-11.0) X10^3/uL RBC 4.50 (4.0-5.2) X10^6/uL Hgb 13.1 (12.0-16.0) g/dL Hct 38.6 (36-46) % MCV 85.7 (80-100) fL MCH 29.1 (26-34) PG MCHC 33.9 (30-36) % RDW 13.0 (11.6-14.8) % Plt Count 250 (150-400) X10^3/uL Neut % (Auto) 64.1 (50-75) % Lymph % (Auto) 24.1 L (25-40) % Garrett % (Auto) 8.7 (3-14) % Eos % (Auto) 2.7 (2-4) % Baso % (Auto) 0.4 (0-2) % Neut # (Auto) 3100 (6172-6723) /uL Lymph # (Auto) 1200 (2474-7137) /uL Garrett # (Auto) 400 (0-900) /uL Eos # (Auto) 100 (0-450) /uL Baso # (Auto) 0 (0-100) /uL Sodium 135 L (137-145) mmol/L Potassium 4.2 (3.4-5.1) mmol/L Chloride 101 (98-107) mmol/L Carbon Dioxide 28 (22-32) mmol/L BUN 17 (7-17) mg/dL Creatinine 0.68 (0.52-1.04) mg/dL Estimated GFR > 60.0 (>60) mL/min BUN/Creatinine Ratio 25.0 H (6-22) Glucose 99 (80-110) mg/dL Calcium 9.1 (8.4-10.2) mg/dL Total Bilirubin 0.9 (0.2-1.3) mg/dL AST 28 (14-36) IU/L ALT 16 (<35) IU/L Alkaline Phosphatase 50 (38-126) U/L Total Creatine Kinase 65 (30-135) U/L CK-MB (CK-2) TNP CK-MB (CK-2) Rel Index TNP Troponin I < 0.012 (0.01-0.034) ng/mL Total Protein 6.7 (6.3-8.2) g/dL Albumin 4.2 (3.5-5.0) g/dL Globulin 2.5 (1.7-4.1) g/dL Albumin/Globulin Ratio 1.7 (1.0-2.8) Lipase 97 (23-300) U/L Imaging Data CT scan - abdomen/pelvis: Radiologist's Impression: [address] [id number] Scan ReportSigned Patient: Mariela Banks EMR#: [id number]: [id number]:[id number]/Sex: 85 / FDate of Service: 01/17/21Loc: EDAccession Number: [id number] Procedure: CT abdomen pelvis w con Ordering Provider: Yoav Keene D.O. PROCEDURE: CT ABDOMEN PELVIS W CON INDICATIONS: Chronic nausea, TECHNIQUE: After the administration of intravenous contrast, 5 mm thick sections acquired from the diaphragm to the symphysis. 5 mm coronal and sagittal reformats were acquired. For radiation dose reduction, the following was used: automated exposure control, adjustment of mA and/or kV according to patient size. COMPARISON: [facility], US, US ABDOMEN COMPLETE, 08/14/2020, 7:01. FINDINGS: Image quality: Excellent. ABDOMEN: Lung bases: There is mild dependent atelectasis bilaterally. Heart size is normal. Solid organs: There is a small hypodensity in the right hepatic lobe measuring approximately 0.6 cm which is too small to characterize but likely represents a cyst. The gallbladder appears within normal limits without calcified gallstones. Biliary system is non-dilated. There is borderline dilatation of the pancreatic duct which measures up to approximately 0.3 cm. No discrete pancreatic mass identified. No peripancreatic fat stranding or fluid collections. The spleen is normal in size. No adrenal nodules. Kidneys demonstrate no hydronephrosis. Peritoneum and bowel: There is gastric wall thickening which appears most prominent within the antrum. Small bowel loops demonstrate normal wall thickness and caliber. There is a moderate to large amount of colonic stool suggestive of constipation. No free fluid or air. Nodes and vessels: No retroperitoneal or mesenteric adenopathy by size criteria. Aorta and inferior vena cava are normal in size. Miscellaneous: No ventral hernias. PELVIS: Genitourinary: Bladder wall thickness is normal. Uterus and ovaries are within normal size limits for age. There are prominent parametrial vessels bilaterally. Miscellaneous: No inguinal hernias or adenopathy. Bones: No suspicious bony lesions. No vertebral body compression fractures. IMPRESSION: 1. Gastric wall thickening, most prominent within the antrum, likely representing a nonspecific gastritis. 2. Moderate to large amount of colonic stool suggestive of constipation. 3. Prominent parametrial vessels in the pelvis of indeterminate clinical significance. Dictated by: Cole Hooper M.D. on 01/17/2021 at 7:59 Approved by: Cole Hooper M.D. on 01/17/2021 at 8:11 MDM Narrative Medical decision making narrative: It does appear based on the review of the notes the patient has had a longstanding history of nausea and abdominal issues and also insomnia. Every note that I have seen up to this point states that she has had a ?complete workup ?however I have only seen x-rays and ultrasounds. I I have been unable to find any CT reports. We received information from [facility] where the patient was seen on 01/13/2021 where again and states she has had a ?full workup ?however the only information that I received from that was that she has had ultrasounds. That is why CT scan was ordered today. Her labs are unremarkable. Her CT scan shows what appears to be gastritis yan kendra no signs of obstruction. I did discuss with her about the stool burden in she states that she is having diarrhea. She has nausea medication at home. I feel patient can be discharged home without further workup here in the emergency department. She is instructed to contact her primary doctor to discuss further evaluation to include potential referral to see Gastroenterology. She expressed understanding and agreement. Discharge Plan Departure Patient Disposition: Home Clinical Impression: Nausea Instructions: DI for Nausea -- Adult Activity Restrictions/Additional Instructions: Your workup here in the emergency department is very reassuring. It does appear that you have had multiple studies in the past for your nausea. I recommend that you talk with your primary doctor to discuss further workup if needed to include any specialist referrals. Continue with a nausea medicine as needed. Eat small amounts of food over longer periods of time. Return to the emergency department for any new symptoms Prescriptions: No Action COENZYME Q10/VITAMIN E (CO-Q-10 100mg) 100 mg PO QDAY Qty: 0 RF: 0 [FLAX SEED] PO QDAY Qty: 0 RF: 0 [VITAMIN B-12] 2,000 iu PO QDAY Qty: 0 RF: 0 [VITAMIN D3] 1,000 iu PO BID Qty: 0 RF: 0 metoclopramide HCl [Reglan] 10 mg tablet 10 mg PO Q6H PRN (Reason: nausea and vomiting) Qty: 30 RF: 1 ondansetron 4 mg tablet,disintegrating See Rx Instructions .ROUTE .COMPLEX Qty: 60 RF: 0 magnesium oxide 500 mg capsule 500 mg PO DAILY RF: 0 Nauzene Upset Stomach-Nausea 230 mg tablet,chewable 230 mg PO DAILY RF: 0 Pepto-Bismol 262 mg tablet 2 tab PO Q30M PRN (Reason: diarrhea) RF: 0 Acid Rescue 2,000 mg PO .After Meals RF: 0 Arnicare Gel See Rx Instructions topical BEDTIME RF: 0 zolpidem [Ambien] 5 mg tablet 5 mg PO BEDTIME PRN (Reason: insomnia) Qty: 30 RF: 0 Referrals: Jarad Van MD [Primary Care Provider] -
[2021-01-17 07:56] LABS: Add Manual Diff / Slide Review NO; Basophils Absolute Auto 0 /uL (0-100); Basophils Percent Auto 0.4 % (0-2); Eosinophils Absolute Auto 100 /uL (0-450); Eosinophils Percent Auto 2.7 % (2-4); Hematocrit 38.6 % (36-46); Hemoglobin 13.1 g/dL (12.0-16.0); Lymphocytes Absolute Auto 1200 /uL (1100-4500); Lymphocytes Percent Auto 24.1 % (25-40); Mean Corpuscular HGB Conc 33.9 % (30-36); Mean Corpuscular Hemoglobin 29.1 PG (26-34); Mean Corpuscular Volume 85.7 fL (80-100); Monocytes Absolute Auto 400 /uL (0-900); Monocytes Percent Auto 8.7 % (3-14); Neutrophils Absolute Auto 3100 /uL (1500-7000); Neutrophils Percent Auto 64.1 % (50-75); Platelet Count 250 X10^3/uL (150-400); White Blood Cell Count 4.9 X10^3/uL (4.5-11.0)
[2021-01-17 08:00] VITALS: BP 129/67; PULSE 68; O2SAT 100
[2021-01-17] MEDS: SODIUM CHLORIDE 0.9% 1,000 ML 1000 ML IV (08:00)
[2021-01-17] MEDS: ONDANSETRON 4 MG/2 ML INJ IV (08:01)
[2021-01-17 08:08] LABS: Creatine Kinase 65 U/L (30-135)
--- NOTE | 2021-01-17 08:19 | DI.CT.S_ITS ---
PROCEDURE: CT ABDOMEN PELVIS W CON INDICATIONS: Chronic nausea, TECHNIQUE: After the administration of intravenous contrast, 5 mm thick sections acquired from the diaphragm to the symphysis. 5 mm coronal and sagittal reformats were acquired. For radiation dose reduction, the following was used: automated exposure control, adjustment of mA and/or kV according to patient size. COMPARISON: [facility], US, US ABDOMEN COMPLETE, 08/14/2020, 7:01. FINDINGS: Image quality: Excellent. ABDOMEN: Lung bases: There is mild dependent atelectasis bilaterally. Heart size is normal. Solid organs: There is a small hypodensity in the right hepatic lobe measuring approximately 0.6 cm which is too small to characterize but likely represents a cyst. The gallbladder appears within normal limits without calcified gallstones. Biliary system is non-dilated. There is borderline dilatation of the pancreatic duct which measures up to approximately 0.3 cm. No discrete pancreatic mass identified. No peripancreatic fat stranding or fluid collections. The spleen is normal in size. No adrenal nodules. Kidneys demonstrate no hydronephrosis. Peritoneum and bowel: There is gastric wall thickening which appears most prominent within the antrum. Small bowel loops demonstrate normal wall thickness and caliber. There is a moderate to large amount of colonic stool suggestive of constipation. No free fluid or air. Nodes and vessels: No retroperitoneal or mesenteric adenopathy by size criteria. Aorta and inferior vena cava are normal in size. Miscellaneous: No ventral hernias. PELVIS: Genitourinary: Bladder wall thickness is normal. Uterus and ovaries are within normal size limits for age. There are prominent parametrial vessels bilaterally. Miscellaneous: No inguinal hernias or adenopathy. Bones: No suspicious bony lesions. No vertebral body compression fractures. IMPRESSION: 1. Gastric wall thickening, most prominent within the antrum, likely representing a nonspecific gastritis. 2. Moderate to large amount of colonic stool suggestive of constipation. 3. Prominent parametrial vessels in the pelvis of indeterminate clinical significance. Dictated by: Cole Hooper M.D. on 01/17/2021 at 7:59 Approved by: Cole Hooper M.D. on 01/17/2021 at 8:11
[2021-01-17 08:21] LABS: Troponin I < 0.012 ng/mL (0.01-0.034)
[2021-01-17 08:26] LABS: Alanine Aminotransferase 16 IU/L (<35); Albumin 4.2 g/dL (3.5-5.0); Albumin Globulin Ratio 1.7 (1.0-2.8); Alkaline Phosphatase 50 U/L (38-126); Aspartate Aminotransferase 28 IU/L (14-36); Bilirubin Total 0.9 mg/dL (0.2-1.3); Blood Urea Nitrogen 17 mg/dL (7-17); Calcium 9.1 mg/dL (8.4-10.2); Carbon Dioxide 28 mmol/L (22-32); Chloride 101 mmol/L (98-107); Estimated Glomerular Filt Rate > 60.0 mL/min (>60); Globulin 2.5 g/dL (1.7-4.1); Glucose 99 mg/dL (80-110); HEMOLYSIS 18 (0-50); Lipase 97 U/L (23-300); Potassium 4.2 mmol/L (3.4-5.1); Sodium 135 mmol/L (137-145); Total Protein 6.7 g/dL (6.3-8.2)
[2021-01-17 08:30] VITALS: BP 131/63; PULSE 66; O2SAT 100
[2021-01-17 09:54] VITALS: BP 142/61; PULSE 65; O2SAT 99
== END 2021-01-17 09:55 | disposition home or self-care (01) ==
PROVIDERS: Emergency Provider Emergency Medicine; Family Provider Physician Assistant; PCP Family Medicine
DX: R11.0 Nausea (principal)
CPT/HCPCS: 36415; 74177; 80053; 81003; 82550; 83690; 84484; 85025; 96361; 96374; 99283; 99284; J2405; Q9967

== ENCOUNTER 2021-01-20 06:37 | Emergency (ER) | payer MEDICARE, MEDICAID, SELFPAY ==
[2021-01-20 06:40] VITALS: BP 144/75; PULSE 82; RESP 18; TEMP 36.9; O2SAT 100; BMI 22.3
--- NOTE | 2021-01-20 07:10 | ED_ITS ---
HPI - Nausea/Vomiting/Diarrhea General Chief complaint: Nausea/Vomiting/Diarrhea Stated complaint: severe nausea, ongoing, insomnia Time Seen by Provider: 01/20/21 07:00 Source: patient Mode of arrival: Ambulatory Limitations: no limitations History of Present Illness HPI Narrative: 85-year-old female nonsmoker with extensive history of chronic nausea presents with a chief complaint of nausea. She denies any vomiting, fever chills. She denies any pain. She denies any change in diet or medications. She states this is been going on for quite some time and is here, not because it is worse but because she has a long day today and feels nauseated. She denies any extensive fatigue. She denies any chest pain or shortness of breath. She denies any exertional fatigue or weakness. She is not dizzy or lightheaded. She denies fever, chills, or exposure to COVID MD complaint: nausea Onset (ago): year(s) Description of Diarrhea: none Associated Abdominal Pain: No Relieving factors: none Exacerbating factors: none Associated symptoms: denies other symptoms Related Data Home Medications Medication Instructions Recorded Confirmed COENZYME Q10/VITAMIN E (CO-Q-10 100 mg PO QDAY #0 12/28/12 01/15/21 100mg) [FLAX SEED] PO QDAY #0 12/14/16 01/15/21 [VITAMIN B-12] 2,000 iu PO QDAY #0 12/14/16 01/15/21 [VITAMIN D3] 1,000 iu PO BID #0 12/14/16 01/15/21 magnesium oxide 500 mg capsule 500 mg PO DAILY cap 03/22/19 01/15/21 Acid Rescue 2,000 mg PO .After Meals 11/20/20 01/15/21 Arnicare Gel See Rx Instructions TOPICAL BEDTIME 11/20/20 01/15/21 bismuth subsalicylate 262 mg tablet 2 tab PO Q30M PRN 11/20/20 01/15/21 sodium citrate 230 mg chewable 230 mg PO DAILY tab 11/20/20 01/15/21 tablet Previous Rx's Medication Instructions Recorded metoclopramide HCl 10 mg tablet 10 mg PO Q6H PRN #30 tab 08/16/20 zolpidem 5 mg tablet 5 mg PO BEDTIME PRN #30 tab 12/27/20 ondansetron 4 mg disintegrating See Rx Instructions .ROUTE 01/13/21 tablet .COMPLEX #60 tab Allergies Allergy/AdvReac Type Severity Reaction Status Date / Time metronidazole Allergy Mild nausea Verified 01/17/21 07:56 amoxicillin [AMOXICILLIN] AdvReac Severe NAUSEA, Verified 01/17/21 07:56 DIZZINESS AND ESOPHAGITIS clindamycin [CLINDAMYCIN] AdvReac Severe NAUSEA, Verified 01/17/21 07:56 DIZZINESS, ESOPHAGITIS meclizine [MECLIZINE] AdvReac Severe NAUSEA, Verified 01/17/21 07:56 DIZZINESS AND ESOPHAGITIS shellfish derived AdvReac Severe (SHRIMP) Verified 01/17/21 07:56 [SHELLFISH DERIVED] VOMITING Review of Systems Constitutional Constitutional: Denies chills, Denies fatigue, Denies fever(s), Denies frequent falls, Denies lethargy and Denies weakness Eyes Eyes: Denies change in vision, Denies eye discharge, Denies irritation and Denies loss of vision ENT Ears, Nose, Mouth, and Throat: Denies change in voice, Denies dizziness, Denies neck pain, Denies sore throat and Denies throat swelling Cardiovascular Cardiovascular: Denies chest pain, Denies irregular heart rhythm, Denies lightheadedness, Denies palpitations, Denies dyspnea, Denies dyspnea on exertion and Denies orthopnea Respiratory Respiratory: Denies cough, Denies dyspnea, Denies dyspnea on exertion and Denies wheezing Gastrointestinal Gastrointestinal: Denies abdominal pain, Denies change in bowel habits, Denies diarrhea, Reports nausea and Denies vomiting Musculoskeletal Musculoskeletal: Denies neck pain and Denies numbness Integumentary/Breasts Skin/Breast: Denies pruritus, Denies erythema, Denies rash and Denies wounds Neurologic Neurologic: Denies behavioral changes, Denies confusion, Denies dizziness, Denies frequent falls, Denies loss of vision, Denies numbness and Denies weakness Psychiatric Psychiatric: Denies anxiety, Denies behavioral changes, Denies confusion, Denies depression, Denies homicidal ideation and Denies suicidal ideation Endocrine Endocrine: Denies fatigue, Denies flushing and Denies palpitations Hematologic/Lymphatic Hematologic/Lymphatic: Denies easy bruising Allergic/Immunologic Allergic/Immunologic: Denies urticaria, Denies throat swelling and Denies wheezing Patient History Medical History Adverse drug reaction Allergic rhinitis (Unknown) Arthritis (04/2006) Dental infection Endometrial polyp (Unknown) Esophagitis, acute History of hyperglycemia Hx of pilonidal cyst (1953) Insomnia, psychophysiological Memory problem Muscle strain of anterior chest wall Nausea Vertigo (~2011) Surgical History History of esophagogastroduodenoscopy (EGD) (~06/2020) History of third molar tooth extraction Status post dilation and curettage (01/13/10) Status post tonsillectomy and adenoidectomy Family History Father Cancer Mother Pneumonia Social History Smoking Status: Never smoker Smoking Status: Never smoker alcohol intake frequency: 0-2 drinks per day Substance Use Type: does not use Exam Narrative Exam Narrative: GENERAL: [85] year old patient appears stated age. Well- nourished, well-developed patient, in mild distress. Anxious HEAD: Atraumatic. Normocephalic. EYES: Pupils equal round and reactive. Extraocular motions intact. No scleral icterus. No injection or drainage. ENT: Nose without bleeding, purulent drainage. Throat without erythema, tonsillar hypertrophy or exudate. Airway patent. NECK: Trachea midline. Non tender CARDIOVASCULAR: Regular rate and rhythm without murmurs, gallops, or rubs. RESPIRATORY: Clear to auscultation. Breath sounds equal bilaterally. No wheezes, rales, or rhonchi. GASTROINTESTINAL: Abdomen soft, non-tender, nondistended. EXTREMITIES: No edema or joint tenderness. BACK: Nontender without deformity or crepitance. No flank tenderness. NEURO: AOx3. SKIN: No rash or erythema of visible areas Initial Vital Signs Initial Vital Signs: Vital Signs Temperature 98.4 F 01/20/21 06:40 Pulse Rate 82 01/20/21 06:40 Respiratory Rate 18 01/20/21 06:40 Blood Pressure 144/75 H 01/20/21 06:40 Pulse Oximetry 100 01/20/21 06:40 Course Course Course Narrative: patient refusing any line or labs, stating that this has been going on for ages and is nothing different. She states she just had a big workup and does not want another one. She demonstates capacity to make this decision and understands that without a workup we could be missing a serious or even life threatening diagnosis such as IA, kidney failure, etc. She was given GI cocktail and protonix and felt much better and requested disc harge. She was given return precautions and understands that she may return immediately for any concerns, new (or ongoing) symptoms for a more in depth evaluation Orders Ordered: ED Orders 01/20/21 06:50 EKG-12 Lead Routine Discontinued Medications Al Hydrox/Mg Hydrox/Simethicone 20 ml/ Lidocaine HCl 15 ml 0 ml PO NOW ONE Stop: 01/20/21 07:10 Last Admin: 01/20/21 07:13 Dose: 20 ml Documented by: MARTIR Pantoprazole Sodium (Pantoprazole 20 Mg Tablet) 20 mg PO NOW ONE Stop: 01/20/21 07:10 Last Admin: 01/20/21 07:13 Dose: 20 mg Documented by: MARTIR Vital Signs Vital signs: Vital Signs - 8 hr 01/20/21 06:40 01/20/21 07:45 Temperature 98.4 F Pulse Rate 82 71 Respiratory Rate 18 16 Blood Pressure 144/75 H 133/71 Pulse Oximetry 100 100 MDM - Nausea/Vomiting/Diarrhea ECG Data Attestation: I personally reviewed and interpreted this ECG as follows: Interpretation: EKG is normal sinus rhythm rate [74 ] and free of any signs of ischemia or ectopy. No ST segmental elevation or depression. No T wave inversions Discharge Plan Departure Patient Disposition: Home Clinical Impression: Nausea Instructions: DI for Nausea -- Adult Activity Restrictions/Additional Instructions: *You have been diagnosed with [chronic nausea, though we (at your request) did very little of a workup to rule out other diagnoses] *What to do: *Continue to take medications as directed: Please consider an over the counter antacid such as Pepcid or Zantac *Follow up with your primary care provider in 2-3 days, call for an appointment. Let them know you were seen in the Emergency Department and that we ask that you be seen in follow up *Return to ER if you should have any new, worsening or concerning symptoms, such as [chest pain, shortness of breath, dizziness, lightheadedness, fever, chills, abdominal pain, increasing fatigue or other bothersome symptoms] Prescriptions: No Action COENZYME Q10/VITAMIN E (CO-Q-10 100mg) 100 mg PO QDAY Qty: 0 RF: 0 [FLAX SEED] PO QDAY Qty: 0 RF: 0 [VITAMIN B-12] 2,000 iu PO QDAY Qty: 0 RF: 0 [VITAMIN D3] 1,000 iu PO BID Qty: 0 RF: 0 metoclopramide HCl [Reglan] 10 mg tablet 10 mg PO Q6H PRN (Reason: nausea and vomiting) Qty: 30 RF: 1 ondansetron 4 mg tablet,disintegrating See Rx Instructions .ROUTE .COMPLEX Qty: 60 RF: 0 magnesium oxide 500 mg capsule 500 mg PO DAILY RF: 0 Nauzene Upset Stomach-Nausea 230 mg tablet,chewable 230 mg PO DAILY RF: 0 Pepto-Bismol 262 mg tablet 2 tab PO Q30M PRN (Reason: diarrhea) RF: 0 Acid Rescue 2,000 mg PO .After Meals RF: 0 Arnicare Gel See Rx Instructions topical BEDTIME RF: 0 zolpidem [Ambien] 5 mg tablet 5 mg PO BEDTIME PRN (Reason: insomnia) Qty: 30 RF: 0 Referrals: Jarad Van MD [Primary Care Provider] -
[2021-01-20] MEDS: MAG HYDROX/ALUMINUM/SIMETH SUS 20 ML, LIDOCAINE VISCOUS 2% 15 ML PO (07:13)
[2021-01-20] MEDS: PANTOPRAZOLE 20 MG TABLET PO (07:13)
[2021-01-20 07:45] VITALS: BP 133/71; PULSE 71; RESP 16; O2SAT 100
== END 2021-01-20 07:46 | disposition home or self-care (01) ==
PROVIDERS: Emergency Provider Emergency Medicine; Family Provider Physician Assistant; PCP Family Medicine
DX: R11.0 Nausea (principal); G47.00 Insomnia, unspecified
CPT/HCPCS: 93005; 99282; 99283

== ENCOUNTER 2021-02-11 06:50 | Emergency (ER) | payer MEDICARE, MEDICAID, SELFPAY ==
[2021-02-11 06:58] VITALS: BP 127/60; PULSE 67; RESP 18; TEMP 35.8; O2SAT 95; BMI 21.6
--- NOTE | 2021-02-11 07:19 | ED_ITS ---
HPI - Nausea/Vomiting/Diarrhea General Chief complaint: Nausea/Vomiting/Diarrhea Stated complaint: netammieua Time Seen by Provider: 02/11/21 07:19 Source: patient Mode of arrival: Ambulatory Limitations: no limitations History of Present Illness HPI Narrative: Patient is a 85-year-old female has longstanding history of nausea she has actually been to the emergency department twice already this month. She had a CT March cyst along blood work. Today she states that Zofran use to help she would take it up to 3 times a day however is no longer helping. Previous notes report that she was supposed to see a GI specialist she is unsure if she did but it sounds familiar. She is here again for nausea. She denies any vomiting diarrhea abdominal pain chest pain fever cough shortness of breath painful or frequent urination or any other symptoms. She has an appointment in 45 minutes that she would like to get too. MD complaint: nausea Onset (ago): year(s) Related Data Home Medications Medication Instructions Recorded Confirmed COENZYME Q10/VITAMIN E (CO-Q-10 100 mg PO QDAY #0 12/28/12 02/10/21 100mg) [FLAX SEED] PO QDAY #0 12/14/16 02/10/21 [VITAMIN B-12] 2,000 iu PO QDAY #0 12/14/16 02/10/21 [VITAMIN D3] 1,000 iu PO BID #0 12/14/16 02/10/21 magnesium oxide 500 mg capsule 500 mg PO DAILY cap 03/22/19 02/10/21 Acid Rescue 2,000 mg PO .After Meals 11/20/20 02/10/21 Arnicare Gel See Rx Instructions TOPICAL BEDTIME 11/20/20 02/10/21 bismuth subsalicylate 262 mg tablet 2 tab PO Q30M PRN 11/20/20 02/10/21 sodium citrate 230 mg chewable 230 mg PO DAILY tab 11/20/20 02/10/21 tablet Previous Rx's Medication Instructions Recorded metoclopramide HCl 10 mg tablet 10 mg PO Q6H PRN #30 tab 08/16/20 pantoprazole 20 mg tablet,delayed 20 mg PO DAILY #60 tab 01/29/21 release zolpidem 5 mg tablet 5 mg PO BEDTIME PRN #30 tab 01/29/21 ondansetron 4 mg disintegrating See Rx Instructions .ROUTE 02/03/21 tablet .COMPLEX #60 tab trazodone 50 mg tablet 50 mg PO BEDTIME PRN 15 Days #1 tab 02/10/21 metoclopramide HCl 10 mg PO Q6H PRN #30 tab 02/11/21 Allergies Allergy/AdvReac Type Severity Reaction Status Date / Time metronidazole Allergy Mild nausea Verified 02/10/21 07:20 amoxicillin [AMOXICILLIN] AdvReac Severe NAUSEA, Verified 02/10/21 07:20 DIZZINESS AND ESOPHAGITIS clindamycin [CLINDAMYCIN] AdvReac Severe NAUSEA, Verified 02/10/21 07:20 DIZZINESS, ESOPHAGITIS meclizine [MECLIZINE] AdvReac Severe NAUSEA, Verified 02/10/21 07:20 DIZZINESS AND ESOPHAGITIS shellfish derived AdvReac Severe (SHRIMP) Verified 02/10/21 07:20 [SHELLFISH DERIVED] VOMITING Review of Systems Review of Systems Narrative: GENERAL: Denies chills, fatigue, malaise, fever, sweats, travel HEENT: Denies sinus pain, ear pain, sore throat, difficulty swallowing, neck pain RESPIRATORY: Denies dyspnea, cough, wheezing, hemoptysis, sputum. CARDIOVASCULAR: Denies chest pain, palpitations, orthopnea, edema GASTROINTESTINAL: See HPI : Denies dysuria, frequency, incontinence, hematuria, urinary retention, flank pain. MUSCULOSKELETAL: Denies weakness, joint pain, or bony pain SKIN: No rash, no erythema, no pruritus NEUROLOGIC: Denies weakness, dizziness, headache, numbness, change in speech, confusion PSYCHIATRIC: No concerning psychosocial issues. 12 point review of systems is negative except for those stated above and HPI Patient History Medical History Adverse drug reaction Allergic rhinitis (Unknown) Arthritis (04/2006) Dental infection Endometrial polyp (Unknown) Esophagitis, acute History of hyperglycemia Hx of pilonidal cyst (195) Insomnia, psychophysiological Memory problem Muscle strain of anterior chest wall Nausea Vertigo (~2011) Surgical History History of esophagogastroduodenoscopy (EGD) (~06/2020) History of third molar tooth extraction Status post dilation and curettage (01/13/10) Status post tonsillectomy and adenoidectomy Family History Father Cancer Mother Pneumonia Social History Smoking Status: Never smoker Smoking Status: Never smoker alcohol intake frequency: 0-2 drinks per day Substance Use Type: does not use Exam Initial Vital Signs Initial Vital Signs: Vital Signs Temperature 96.4 F L 02/11/21 06:58 Pulse Rate 67 02/11/21 06:58 Respiratory Rate 18 02/11/21 06:58 Blood Pressure 127/60 02/11/21 06:58 Pulse Oximetry 95 02/11/21 06:58 GENERAL: Alert pleasant 85-year-old female and in no acute distress. HEENT: Head atraumatic,EOMI, pupils reactive, face symmetric, moist mucous membranes CARDIOVASCULAR: Regular rate and rhythm without murmurs, rubs or gallops. RESPIRATORY: Breath sounds equal bilaterally, no wheezes rales or rhonchi. ABDOMEN: Soft, mild left and right lower quadrant tenderness no guarding or rebound EXTREMITIES: Normal range of motion, no clubbing or edema. Neurovascularly intact NEUROLOGICAL: Alert and oriented x4.Normal gait and speech. Cranial nerves II through XII grossly intact. SKIN: Warm, dry, no laceration, no petechiae, no rashes or lesions. Course Orders Ordered: ED Orders 02/11/21 07:30 XR abdomen min 2V Stat Discontinued Medications Metoclopramide HCl (Metoclopramide Hcl 5 Mg Tablet) 5 mg PO NOW ONE Stop: 02/11/21 07:24 Last Admin: 02/11/21 07:45 Dose: 5 mg Documented by: ARMAND Vital Signs Vital signs: Vital Signs - 8 hr 02/11/21 06:58 02/11/21 08:06 Temperature 96.4 F L Pulse Rate 67 61 Respiratory Rate 18 16 Blood Pressure 127/60 142/63 H Pulse Oximetry 95 100 MDM - Nausea/Vomiting/Diarrhea Imaging Data Abdominal x-ray: Radiologist's Impression: PROCEDURE: XR ABDOMEN MIN 2V INDICATIONS: pain nausea TECHNIQUE: 2 views of the abdomen were acquired. COMPARISON: [facility], , XR ABDOMEN MIN 2V, 05/24/2020, 8:31. FINDINGS: Surgical changes and devices: None. Bowel: No pneumoperitoneum. The bowel gas pattern is normal. Soft tissues: No masses; visualized solid organ contours appear normal in size. No suspicious abdominal calcifications. Bones: No suspicious bony abnormalities. IMPRESSION: No acute process. Dictated by: Liberty Ashraf M.D. on 02/11/2021 at 8:50 MDM Narrative Medical decision making narrative: Abdomen is re-examined a couple of times intermittently has lower abdominal pain. I discussed with patient blood work and repeating her CT is. However she is quite adamant that she has an appointment that she needs to get to at 8:15 a.m.. She would like to come back at a different time that is more convenient for her. Despite being advised to have further workup patient opted not to. Discharge Plan Departure Patient Disposition: Home Clinical Impression: Nausea Instructions: Nausea and Vomiting-Adult Activity Restrictions/Additional Instructions: *You have been diagnosed with nausea *What to do: It was advised that you stay in the emergency department have blood work and more imaging, you were experiencing some abdominal pain which is abnormal for you. *Continue to take medications as directed Reglan 5 mg every 6 hours if needed for nausea or vomiting-->SENT TO [facility] *Follow up with your primary care provider in 2-3 days *Return to ER if you should have increased abdominal pain, nausea or vomiting or any new, worsening or concerning symptoms Prescriptions: New metoclopramide HCl 10 mg tablet 10 mg PO Q6H PRN (Reason: nausea and vomiting) Qty: 30 RF: 0 No Action trazodone 50 mg tablet 50 mg PO BEDTIME PRN (Reason: insomnia) 15 Days Qty: 1 RF: 0 COENZYME Q10/VITAMIN E (CO-Q-10 100mg) 100 mg PO QDAY Qty: 0 RF: 0 [FLAX SEED] PO QDAY Qty: 0 RF: 0 [VITAMIN B-12] 2,000 iu PO QDAY Qty: 0 RF: 0 [VITAMIN D3] 1,000 iu PO BID Qty: 0 RF: 0 metoclopramide HCl [Reglan] 10 mg tablet 10 mg PO Q6H PRN (Reason: nausea and vomiting) Qty: 30 RF: 1 ondansetron 4 mg tablet,disintegrating See Rx Instructions .ROUTE .COMPLEX Qty: 60 RF: 0 magnesium oxide 500 mg capsule 500 mg PO DAILY RF: 0 Nauzene Upset Stomach-Nausea 230 mg tablet,chewable 230 mg PO DAILY RF: 0 Pepto-Bismol 262 mg tablet 2 tab PO Q30M PRN (Reason: diarrhea) RF: 0 Acid Rescue 2,000 mg PO .After Meals RF: 0 Arnicare Gel See Rx Instructions topical BEDTIME RF: 0 zolpidem [Ambien] 5 mg tablet 5 mg PO BEDTIME PRN (Reason: insomnia) Qty: 30 RF: 0 pantoprazole [Protonix] 20 mg tablet,delayed release (DR/EC) 20 mg PO DAILY Qty: 60 RF: 0 Referrals: Jarad Van MD [Primary Care Provider] -
--- NOTE | 2021-02-11 07:30 | DI.RAD.S_ITS ---
PROCEDURE: XR ABDOMEN MIN 2V INDICATIONS: pain nausea TECHNIQUE: 2 views of the abdomen were acquired. COMPARISON: [facility], , XR ABDOMEN MIN 2V, 05/24/2020, 8:31. FINDINGS: Surgical changes and devices: None. Bowel: No pneumoperitoneum. The bowel gas pattern is normal. Soft tissues: No masses; visualized solid organ contours appear normal in size. No suspicious abdominal calcifications. Bones: No suspicious bony abnormalities. IMPRESSION: No acute process. Dictated by: Liberty Ashraf M.D. on 02/11/2021 at 8:50 Approved by: Liberty Ashraf M.D. on 02/11/2021 at 8:52
[2021-02-11] MEDS: METOCLOPRAMIDE HCL 5 MG TABLET PO (07:45)
[2021-02-11 08:06] VITALS: BP 142/63; PULSE 61; RESP 16; O2SAT 100
== END 2021-02-11 08:08 | disposition home or self-care (01) ==
PROVIDERS: Emergency Provider Emergency Medicine; Family Provider Physician Assistant; PCP Family Medicine
DX: R11.0 Nausea (principal); R10.30 Lower abdominal pain, unspecified
CPT/HCPCS: 74019; 99283

== ENCOUNTER → 2021-02-26 13:32 | Outpatient (CLI) | payer MEDICARE, MEDICAID, SELFPAY ==
--- NOTE | 2021-02-26 13:33 | DI.MRI.S_ITS ---
PROCEDURE: MR HEAD/BRAIN WO/W CON INDICATIONS: Memory loss, chronic nausea, insomnia TECHNIQUE: Noncontrast axial T1 spin echo, axial T2 fast spin echo, sagittal and axial FLAIR, coronal T2 fast spin echo, axial gradient echo, axial diffusion and ADC through the brain. After the administration of contrast, axial and coronal T1 spin echo with fat saturation through the brain. COMPARISON: None. FINDINGS: Image quality: Excellent. CSF spaces: Basal cisterns are patent. No extra-axial fluid collections. Ventricles are normal in size and shape. Brain: No midline shift. No intracranial bleeds or masses. No abnormal intracranial enhancement. There is cerebral volume loss for age. There is periventricular white matter chronic small vessel ischemic change. The brainstem appears normal. Diffusion-weighted images demonstrate no acute ischemic insults. No chronic ischemic insults. Normal intravascular flow voids are present. Skull and face: Calvarial marrow is normal in signal. Orbits appear normal. Sinuses: Sinuses and mastoids appear clear. IMPRESSION: 1. Volume loss and small vessel ischemic disease. 2. No acute process. No recent infarct. Dictated by: Liberty Ashraf M.D. on 02/26/2021 at 14:39 Approved by: Liberty Ashraf M.D. on 02/26/2021 at 14:41
== END ==
PROVIDERS: Family Provider Physician Assistant; PCP Family Medicine; Referring Provider Family Medicine; Visit Provider Family Medicine
DX: R41.3 Other amnesia (principal); F51.04 Psychophysiologic insomnia; R11.0 Nausea; M81.0 Age-related osteoporosis without current pathological fracture
CPT/HCPCS: 70553

== ENCOUNTER 2021-02-28 05:04 | Emergency (ER) | payer MEDICARE, MEDICAID, SELFPAY ==
--- NOTE | 2021-02-28 05:08 | ED.GENADULT ---
HPI - General Adult General Chief complaint: Recheck/Abnormal Lab/Rx Stated complaint: difficulty sleeping Time Seen by Provider: 02/28/21 05:08 History of Present Illness HPI narrative: 86-year-old woman with worsening memory issues, history of chronic nausea chronic insomnia with at least 16 visits since November between family practice and emergency department. She has had appointments set up with sleep study Physicians, neurologists and multiple additional testing. Brain MRI is currently pending. With most recent visit she was given clear written discharge instructions yet today is complaining of many of the same symptoms and bitterly complaining that her doctor simply will not give her sleep medications to make her sleep. According to the medical record notes she is in the process of selling her house and moving to higher level of assisted care. When asked about that she notes that these plans have changed and she now is planning to continue to stay in her own home. She currently does have home health to assist with medication management. Related Data Home Medications Medication Instructions Recorded Confirmed COENZYME Q10/VITAMIN E (CO-Q-10 100 mg PO QDAY #0 12/28/12 02/20/21 100mg) [FLAX SEED] PO QDAY #0 12/14/16 02/20/21 [VITAMIN B-12] 2,000 iu PO QDAY #0 12/14/16 02/20/21 [VITAMIN D3] 1,000 iu PO BID #0 12/14/16 02/20/21 magnesium oxide 500 mg capsule 500 mg PO DAILY cap 03/22/19 02/20/21 Acid Rescue 2,000 mg PO .After Meals 11/20/20 02/20/21 Arnicare Gel See Rx Instructions TOPICAL BEDTIME 11/20/20 02/20/21 bismuth subsalicylate 262 mg tablet 2 tab PO Q30M PRN 11/20/20 02/20/21 sodium citrate 230 mg chewable 230 mg PO DAILY tab 11/20/20 02/20/21 tablet Previous Rx's Medication Instructions Recorded metoclopramide HCl 10 mg tablet 10 mg PO Q6H PRN #30 tab 08/16/20 pantoprazole 20 mg tablet,delayed 20 mg PO DAILY #60 tab 01/29/21 release metoclopramide HCl 10 mg PO Q6H PRN #30 tab 02/11/21 ondansetron 4 mg disintegrating See Rx Instructions .ROUTE 02/13/21 tablet .COMPLEX #60 tab zolpidem 5 mg tablet 5 mg PO BEDTIME PRN #30 tab 02/20/21 Allergies Allergy/AdvReac Type Severity Reaction Status Date / Time metronidazole Allergy Mild nausea Verified 02/20/21 08:36 amoxicillin [AMOXICILLIN] AdvReac Severe NAUSEA, Verified 02/20/21 08:36 DIZZINESS AND ESOPHAGITIS clindamycin [CLINDAMYCIN] AdvReac Severe NAUSEA, Verified 02/20/21 08:36 DIZZINESS, ESOPHAGITIS meclizine [MECLIZINE] AdvReac Severe NAUSEA, Verified 02/20/21 08:36 DIZZINESS AND ESOPHAGITIS shellfish derived AdvReac Severe (SHRIMP) Verified 02/20/21 08:36 [SHELLFISH DERIVED] VOMITING Review of Systems Review of Systems Narrative: Complains of dramatic fatigue States that she goes to bed between 6 and 7pm and then is always up by 2 in the morning No complaints of fever, headaches, cough, palpitations, chest pain, abdominal pain, back pain, dysuria, constipation Patient History Medical History Adverse drug reaction Allergic rhinitis (Unknown) Arthritis (04/2006) Dental infection Endometrial polyp (Unknown) Esophagitis, acute History of hyperglycemia Hx of pilonidal cyst (1953) Insomnia, psychophysiological Memory problem Mild cognitive impairment with memory loss Muscle strain of anterior chest wall Nausea Vertigo (~2011) Surgical History History of esophagogastroduodenoscopy (EGD) (~06/2020) History of third molar tooth extraction Status post dilation and curettage (01/13/10) Status post tonsillectomy and adenoidectomy Family History Father Cancer Mother Pneumonia Social History Smoking Status: Never smoker Smoking Status: Never smoker alcohol intake frequency: 0-2 drinks per day Substance Use Type: does not use Exam Narrative Exam Narrative: General: Alert in no acute distress Respiratory: Able to speak in full sentences, no obvious respiratory distress Skin: No obvious rashes, warm and dry Neurologic: Grossly intact no obvious asymmetries or abnormalities Psych: who poor overall insight but pleasant affect, speech is fluent Initial Vital Signs Initial Vital Signs: Vital Signs Temperature 97.9 F 02/28/21 05:17 Pulse Rate 74 02/28/21 05:17 Respiratory Rate 18 02/28/21 05:17 Blood Pressure 152/69 H 02/28/21 05:17 Pulse Oximetry 98 02/28/21 05:17 Course Vital Signs Vital signs: Vital Signs - 8 hr 02/28/21 05:17 Temperature 97.9 F Pulse Rate 74 Respiratory Rate 18 Blood Pressure 152/69 H Pulse Oximetry 98 Medical Decision Making MDM Narrative Medical decision making narrative: 86-year-old woman with increasing memory dysfunction presents to the emergency room again complaining of severe insomnia. When asked about sleeping habit she notes that she goes to bed around 6 or 7 in the evening with the television on watches the clock all night long and then gets up to in the morning. She has had appointments with sleep specialist and today providers continue to avoid prescribing her sleep medications. She is unwilling to consider staying up later at night to see if going to bed when she is more sleepy might help her fall asleep more easily. After her 8 hours in bed and very early rising she is alone, no facilities are stores are open and she perseverates on the fact that she is now awake. It is not actually clear to me that she is not sleeping. It is clear to me that sleeping medication is absolutely contraindicated for this 86-year-old woman who artery has some memory complications. She is unable to consider additional options and unwilling to consider any behavioral changes. [facility] Again, I reassured her that she needed to keep that appointment and also reassured her that it is absolutely inappropriate for emergency room physicians to prescribed sleep medication in this setting. She is safe for home discharge Discharge Plan Departure Patient Disposition: Home Clinical Impression: Insomnia, psychophysiological Instructions: DI for Insomnia Prescriptions: No Action COENZYME Q10/VITAMIN E (CO-Q-10 100mg) 100 mg PO QDAY Qty: 0 RF: 0 [FLAX SEED] PO QDAY Qty: 0 RF: 0 [VITAMIN B-12] 2,000 iu PO QDAY Qty: 0 RF: 0 [VITAMIN D3] 1,000 iu PO BID Qty: 0 RF: 0 metoclopramide HCl [Reglan] 10 mg tablet 10 mg PO Q6H PRN (Reason: nausea and vomiting) Qty: 30 RF: 1 magnesium oxide 500 mg capsule 500 mg PO DAILY RF: 0 Nauzene Upset Stomach-Nausea 230 mg tablet,chewable 230 mg PO DAILY RF: 0 Pepto-Bismol 262 mg tablet 2 tab PO Q30M PRN (Reason: diarrhea) RF: 0 Acid Rescue 2,000 mg PO .After Meals RF: 0 Arnicare Gel See Rx Instructions topical BEDTIME RF: 0 pantoprazole [Protonix] 20 mg tablet,delayed release (DR/EC) 20 mg PO DAILY Qty: 60 RF: 0 ondansetron 4 mg tablet,disintegrating See Rx Instructions .ROUTE .COMPLEX Qty: 60 RF: 0 zolpidem [Ambien] 5 mg tablet 5 mg PO BEDTIME PRN (Reason: insomnia) Qty: 30 RF: 0 metoclopramide HCl 10 mg tablet 10 mg PO Q6H PRN (Reason: nausea and vomiting) Qty: 30 RF: 0 Referrals: Jarad Van MD [Primary Care Provider] -
[2021-02-28 05:17] VITALS: BP 152/69; PULSE 74; RESP 18; TEMP 36.6; O2SAT 98
== END 2021-02-28 05:35 | disposition home or self-care (01) ==
LOC: ED 05:34
PROVIDERS: Emergency Provider Emergency Medicine; Family Provider Physician Assistant; PCP Family Medicine
DX: F51.04 Psychophysiologic insomnia (principal)
CPT/HCPCS: 99214; 99281

== ENCOUNTER 2021-06-10 06:27 | Emergency (ER) | payer MEDICARE, MEDICAID, SELFPAY ==
[2021-06-10 06:37] VITALS: BP 124/58; PULSE 70; RESP 16; TEMP 36.9; O2SAT 100; BMI 21.6
--- NOTE | 2021-06-10 06:44 | ED.PSYCH ---
HPI - Psych General Chief Complaint: Psychiatric Symptoms Stated Complaint: unable to sleep for two days Time Seen by Provider: 06/10/21 06:30 Source: patient Mode of arrival: Ambulatory History of Present Illness HPI Narrative: Patient is an 86-year-old female has been seen multiple times in the past by multiple providers to include the emergency department, her primary doctor and also a sleep specialist for her insomnia. She is here stating that she has not slept in the past 2 days. She has no other complaints. She states that she is taking all of her medications as directed. She states she is trying to follow all of the instructions given to her by the specialist/providers that she has seen up to this point. She states that the arthritis in her right hand is actually better and that is not keeping her awake. She is concerned about going another night without sleep Related Data Home Medications Medication Instructions Recorded Confirmed COENZYME Q10/VITAMIN E (CO-Q-10 100 mg PO QDAY #0 12/28/12 05/23/21 100mg) [FLAX SEED] PO QDAY #0 12/14/16 05/23/21 [VITAMIN B-12] 2,000 iu PO QDAY #0 12/14/16 05/23/21 [VITAMIN D3] 1,000 iu PO BID #0 12/14/16 05/23/21 magnesium oxide 500 mg capsule 500 mg PO DAILY cap 03/22/19 05/23/21 diclofenac sodium 1 % topical gel 2 g TOPICAL QID 04/30/21 05/23/21 (Voltaren) Previous Rx's Medication Instructions Recorded mirtazapine 15 mg tablet 15 mg PO BEDTIME #30 tab 03/31/21 gabapentin 300 mg capsule 300 mg PO BEDTIME #14 cap 06/06/21 Allergies Allergy/AdvReac Type Severity Reaction Status Date / Time metronidazole Allergy Mild nausea Verified 05/23/21 08:30 amoxicillin [AMOXICILLIN] AdvReac Severe NAUSEA, Verified 05/23/21 08:30 DIZZINESS AND ESOPHAGITIS clindamycin [CLINDAMYCIN] AdvReac Severe NAUSEA, Verified 05/23/21 08:30 DIZZINESS, ESOPHAGITIS meclizine [MECLIZINE] AdvReac Severe NAUSEA, Verified 05/23/21 08:30 DIZZINESS AND ESOPHAGITIS shellfish derived AdvReac Severe (SHRIMP) Verified 05/23/21 08:30 [SHELLFISH DERIVED] VOMITING Review of Systems Constitutional Comments: No headache Cardiovascular Comments: No chest pain Respiratory Comments: No shortness of breath Gastrointestinal Comments: No abdominal pain Musculoskeletal Comments: No right hand pain Psychiatric Comments: Insomnia Patient History Medical History Adverse drug reaction Allergic rhinitis (Unknown) Arthritis (04/2006) Dental infection Endometrial polyp (Unknown) Esophagitis, acute History of hyperglycemia Hx of pilonidal cyst (1953) Insomnia, psychophysiological Memory problem Mild cognitive impairment with memory loss Muscle strain of anterior chest wall Nausea Persistent cognitive impairment Vertigo (~2011) Surgical History History of esophagogastroduodenoscopy (EGD) (~06/2020) History of third molar tooth extraction Status post dilation and curettage (01/13/10) Status post tonsillectomy and adenoidectomy Family History Father Cancer Mother Pneumonia Social History Smoking Status: Never smoker Smoking Status: Never smoker alcohol intake frequency: 0-2 drinks per day Substance Use Type: does not use Exam Initial Vital Signs Initial Vital Signs: Vital Signs Temperature 98.4 F 06/10/21 06:37 Pulse Rate 70 06/10/21 06:37 Respiratory Rate 16 06/10/21 06:37 Blood Pressure 124/58 L 06/10/21 06:37 Pulse Oximetry 100 06/10/21 06:37 Const General: cooperative and healthy appearing [facility] Head: normal to inspection and normocephalic Resp Effort & Inspection: normal respiratory effort Cardio Rate: regular rate Skin General: no rashes or lesions noted Neuro General: patient alert and patient awake Extrem General: normal to inspection Course Vital Signs Vital signs: Vital Signs - 8 hr 06/10/21 06:37 Temperature 98.4 F Pulse Rate 70 Respiratory Rate 16 Blood Pressure 124/58 L Pulse Oximetry 100 [facility] - Psych Medical Records Attestation: I reviewed the patient's medical records. [facility] Narrative Medical decision making narrative: Patient returns to the emergency department today with continued issues of her longstanding insomnia. I did review her medical records. She has no new complaints other than not being able to sleep for the past 2 nights. I did inform her that unfortunately there is nothing more we can do for her and of the emergency department with regard to her insomnia. We will not be prescribing her any sleep aids. She will needed talk with her primary doctor regarding this. Will discharge home. She was given return precautions and follow-up instructions. She expressed understanding and agreement. Discharge Plan Departure Patient Disposition: Home Clinical Impression: Insomnia Instructions: Insomnia (Alternative Therapy) Activity Restrictions/Additional Instructions: Unfortunately not much more can be done preview out of the emergency department with regard to your insomnia. This issue will need to be taking care of by either your primary doctor or the sleep specialist. Return to the emergency department for any new symptoms Prescriptions: No Action COENZYME Q10/VITAMIN E (CO-Q-10 100mg) 100 mg PO QDAY Qty: 0 RF: 0 [FLAX SEED] PO QDAY Qty: 0 RF: 0 [VITAMIN B-12] 2,000 iu PO QDAY Qty: 0 RF: 0 [VITAMIN D3] 1,000 iu PO BID Qty: 0 RF: 0 gabapentin 300 mg capsule 300 mg PO BEDTIME Qty: 14 RF: 0 magnesium oxide 500 mg capsule 500 mg PO DAILY RF: 0 diclofenac sodium [Voltaren] 1 % gel 2 g topical QID RF: 0 mirtazapine 15 mg tablet 15 mg PO BEDTIME Qty: 30 RF: 3 Referrals: Jarad Van MD [Primary Care Provider] -
== END 2021-06-10 06:53 | disposition home or self-care (01) ==
PROVIDERS: Emergency Provider Emergency Medicine; PCP Family Medicine
DX: G47.00 Insomnia, unspecified (principal)
CPT/HCPCS: 99281; 99283

== ENCOUNTER → 2021-09-26 08:23 | Outpatient (CLI) | payer MEDICARE, MEDICAID, SELFPAY ==
[2021-09-26] MEDS: COVID-19 VACC #3, MRNA(MOD) 50 MCG/0.25 ML VIAL IM (08:33)
== END ==
PROVIDERS: PCP Family Medicine; Visit Provider Internal Medicine
DX: Z23 Encounter for immunization (principal)
CPT/HCPCS: 0013A; 91301

== ENCOUNTER 2021-10-27 08:46 | Emergency (ER) | payer MEDICARE, MEDICAID, SELFPAY ==
[2021-10-27 09:04] VITALS: BP 126/66; PULSE 76; RESP 18; O2SAT 99; BMI 23.3
--- NOTE | 2021-10-27 09:07 | DI.RAD.S_ITS ---
PROCEDURE: XR CHEST 1V INDICATIONS: chest pain TECHNIQUE: One view of the chest was acquired. COMPARISON: [facility], CR, XR CHEST 1V, 08/27/2020, 15:11. FINDINGS: Surgical changes and devices: None. Lungs and pleura: No acute consolidation. There is hyperinflation of the lungs with flattening of the hemidiaphragms suggestive of COPD. There is mild scarring in the right lung apex redemonstrated. No pleural effusions or pneumothorax. Mediastinum: Mediastinal contours appear normal. Heart size is normal. Bones and chest wall: No suspicious bony lesions. Overlying soft tissues appear unremarkable. IMPRESSION: 1. No acute cardiopulmonary disease. 2. Findings suggestive of COPD. Dictated by: Cole Hooper M.D. on 10/27/2021 at 9:56 Approved by: Cole Hooper M.D. on 10/27/2021 at 10:01
--- NOTE | 2021-10-27 09:24 | PC.NURSE ---
pt states she thinks it was from one of her supplements, pt states she feels better. she doesn't want me to start an iv or do blood work. pt agreed to see the dr and not leave yet.
--- NOTE | 2021-10-27 09:29 | ED.CHESTPAIN ---
HPI - Chest Pain General Chief Complaint: Chest Pain Stated Complaint: swallowed vitamin capsule, lodged in chest, pain Time Seen by Provider: 10/27/21 09:14 Source: patient Mode of arrival: Ambulatory Limitations: no limitations History of Present Illness HPI narrative: Patient is an 86 year female who came in for evaluation of chest discomfort. She states that last evening she took a pill to try to help her sleep. She thinks it was a vitamin pill. She does this regularly. Afterwards she started having pain in her chest. This morning she went to the pharmacy and they advised that she come to the emergency department. She states that it was a very strong discomfort. Not worse with movement. No breathing. No vomiting. Since arrival here in the emergency department she stated that she has started to burp in it has relieved much of the symptoms. Related Data Home Medications Medication Instructions Recorded Confirmed COENZYME Q10/VITAMIN E (CO-Q-10 100 mg PO QDAY #0 12/28/12 07/24/21 100mg) [FLAX SEED] PO QDAY #0 12/14/16 07/24/21 [VITAMIN B-12] 2,000 iu PO QDAY #0 12/14/16 07/24/21 [VITAMIN D3] 1,000 iu PO BID #0 12/14/16 07/24/21 magnesium oxide 500 mg capsule 500 mg PO DAILY cap 03/22/19 07/24/21 diclofenac sodium 1 % topical gel 2 g TOPICAL QID 04/30/21 07/24/21 (Voltaren) Previous Rx's Medication Instructions Recorded mirtazapine 30 mg tablet 30 mg PO BEDTIME #30 tab 07/02/21 donepezil 5 mg tablet (Aricept) 5 mg PO DAILY #60 tab 09/30/21 gabapentin 300 mg capsule See Rx Instructions .ROUTE 10/13/21 .COMPLEX PRN #30 cap Allergies Allergy/AdvReac Type Severity Reaction Status Date / Time metronidazole Allergy Mild nausea Verified 07/24/21 08:05 amoxicillin [AMOXICILLIN] AdvReac Severe NAUSEA, Verified 07/24/21 08:05 DIZZINESS AND ESOPHAGITIS clindamycin [CLINDAMYCIN] AdvReac Severe NAUSEA, Verified 07/24/21 08:05 DIZZINESS, ESOPHAGITIS meclizine [MECLIZINE] AdvReac Severe NAUSEA, Verified 07/24/21 08:05 DIZZINESS AND ESOPHAGITIS shellfish derived AdvReac Severe (SHRIMP) Verified 07/24/21 08:05 [SHELLFISH DERIVED] VOMITING Review of Systems Constitutional Constitutional: Reports system reviewed and no additional complaints, except as documented ENT Ears, Nose, Mouth, and Throat: Reports system reviewed and no additional complaints, except as documented Cardiovascular Cardiovascular: Reports as per HPI and Reports system reviewed and no additional complaints, except as documented Respiratory Respiratory: Reports as per HPI and Reports system reviewed and no additional complaints, except as documented Gastrointestinal Gastrointestinal: Reports as per HPI and Reports system reviewed and no additional complaints, except as documented Integumentary/Breasts Skin/Breast: Reports system reviewed and no additional complaints, except as documented Hematologic/Lymphatic On Anticoagulants: No Patient History Medical History Adverse drug reaction Allergic rhinitis (Unknown) Arthritis (04/2006) Dental infection Endometrial polyp (Unknown) Esophagitis, acute History of hyperglycemia Hx of pilonidal cyst (1953) Insomnia, psychophysiological Memory problem Mild cognitive impairment with memory loss Muscle strain of anterior chest wall Nausea Persistent cognitive impairment Vertigo (~2011) Surgical History History of esophagogastroduodenoscopy (EGD) (~06/2020) History of third molar tooth extraction Status post dilation and curettage (01/13/10) Status post tonsillectomy and adenoidectomy Family History Father Cancer Mother Pneumonia Social History Smoking Status: Never smoker Smoking Status: Never smoker alcohol intake frequency: 0-2 drinks per day Substance Use Type: does not use Exam Initial Vital Signs Initial Vital Signs: Vital Signs Pulse Rate 76 10/27/21 09:04 Respiratory Rate 18 10/27/21 09:04 Blood Pressure 126/66 10/27/21 09:04 Pulse Oximetry 99 10/27/21 09:04 Const General: cooperative, healthy appearing, comfortable and well developed HENNV Head: normal to inspection and normocephalic Resp Effort & Inspection: normal respiratory effort Auscultation: clear to auscultation bilaterally Cardio Rate: regular rate Rhythm: regular rhythm GI Inspection: non-distended Palpation: soft and No tender Skin General: no rashes or lesions noted Neuro General: patient alert, patient awake and moves all extremities Extrem General: normal to inspection and capillary refill normal Psych Appearance: grossly normal and well kempt Course Orders Ordered: ED Orders 10/27/21 09:07 XR chest 1V Stat 10/27/21 09:10 EKG-12 Lead Stat 10/27/21 11:02 Complete Blood Count AUTO DIFF Stat Comprehensive Metabolic Panel Stat Lipase Stat Magnesium Stat Troponin & CK Cardiac Panel Stat Discontinued Medications Al Hydrox/Mg Hydrox/Simethicone 20 ml/ Lidocaine HCl 15 ml 0 ml PO NOW ONE Stop: 10/27/21 10:12 Last Admin: 10/27/21 10:15 Dose: 20 ml Documented by: BTONER Vital Signs Vital signs: Vital Signs - 8 hr 10/27/21 09:04 Pulse Rate 76 Respiratory Rate 18 Blood Pressure 126/66 Pulse Oximetry 99 MDM - Chest Pain Lab Data Attestation: I reviewed the patient's lab results. Result diagrams: 10/27/21 11:02 10/27/21 11:02 Labs: Lab Results 10/27/21 10/27/21 Range/Units 11:02 11:02 WBC 7.1 (4.5-11.0) X10^3/uL RBC 4.68 (4.0-5.2) X10^6/uL Hgb 13.3 (12.0-16.0) g/dL Hct 39.3 (36-46) % MCV 83.9 (80-100) fL MCH 28.3 (26-34) PG MCHC 33.7 (30-36) % RDW 14.0 (11.6-14.8) % Plt Count 253 (150-400) X10^3/uL Neut % (Auto) 77.5 H (50-75) % Lymph % (Auto) 12.3 L (25-40) % Hitchcock % (Auto) 7.4 (3-14) % Eos % (Auto) 2.4 (2-4) % Baso % (Auto) 0.4 (0-2) % Neut # (Auto) 5500 (7450-5271) /uL Lymph # (Auto) 900 L (6009-4323) /uL Hitchcock # (Auto) 500 (0-900) /uL Eos # (Auto) 200 (0-450) /uL Baso # (Auto) 0 (0-100) /uL Sodium 136 L (137-145) mmol/L Potassium 4.7 (3.4-5.1) mmol/L Chloride 102 (98-107) mmol/L Carbon Dioxide 27 (22-32) mmol/L BUN 23 H (7-17) mg/dL Creatinine 0.64 (0.52-1.04) mg/dL Estimated GFR > 60.0 (>60) mL/min BUN/Creatinine Ratio 35.9 H (6-22) Glucose 104 (80-110) mg/dL Calcium 9.4 (8.4-10.2) mg/dL Magnesium 2.3 (1.6-2.3) mg/dL Total Bilirubin 0.6 (0.2-1.3) mg/dL AST 38 H (14-36) IU/L ALT 21 (<35) IU/L Alkaline Phosphatase 69 (38-126) U/L Total Creatine Kinase 108 (30-135) U/L CK-MB (CK-2) 2.27 (<2.37) ng/mL CK-MB (CK-2) Rel Index 2.1 (1.5-5.0) % Troponin I < 0.012 (0.01-0.034) ng/mL Total Protein 7.4 (6.3-8.2) g/dL Albumin 4.6 (3.5-5.0) g/dL Globulin 2.8 (1.7-4.1) g/dL Albumin/Globulin Ratio 1.6 (1.0-2.8) Lipase 138 (23-300) U/L Imaging Data Chest x-ray: Radiologist's Impression: [address] [address] XRay Report Signed Patient: Mariela Banks MR#: [id number] : 1935 Acct:[id number] Age/Sex: 86 / F Date of Service: 10/27/21 Loc: Accession Number: [id number] ?? Procedure: XR chest 1V Ordering Provider: Yoav Keene D.O. PROCEDURE:? XR CHEST 1V ? INDICATIONS:? chest pain ? TECHNIQUE:? One view of the chest was acquired.? ? COMPARISON:? [facility], CR, XR CHEST 1V, 08/27/2020, 15:11. ? FINDINGS:? ? Surgical changes and devices:? None.? ? Lungs and pleura:? No acute consolidation.? There is hyperinflation of the lungs with flattening of the hemidiaphragms suggestive of COPD.? There is mild scarring in the right lung apex redemonstrated. ? No pleural effusions or pneumothorax.? ? Mediastinum:? Mediastinal contours appear normal.? Heart size is normal.? ? Bones and chest wall:? No suspicious bony lesions.? Overlying soft tissues appear unremarkable.? ? IMPRESSION:? ? 1. No acute cardiopulmonary disease. ? 2. Findings suggestive of COPD.? ? ? Dictated by: Cole Hooper M.D. on 10/27/2021 at 9:56 ? ? Approved by: Cole Hooper M.D. on 10/27/2021 at 10:01?? ECG Data Attestation: I personally reviewed and interpreted this ECG as follows: Prior ECG tracings: not available for review Interpretation: Sinus rhythm Ventricular rate is 72 Left axis deviation Normal QRS Normal QTC Nonspecific ST T wave changes MDM Narrative Medical decision making narrative: Patient does have symptoms of seem to be waxing and waning. No respiratory distress. She did improve after the GI cocktail. Her labs are unremarkable. The suspect that this is GI our gin. She was given return precautions and follow-up instructions. I feel that she can be safely discharged home without further workup. She expressed understanding and agreement. Discharge Plan Departure Patient Disposition: Home Clinical Impression: Atypical chest pain Instructions: DI for Atypical Chest Pain Activity Restrictions/Additional Instructions: Continue to take all of your medications as directed. Contact your primary doctor for a follow-up. Return to the emergency department for any new or worsening symptoms Prescriptions: No Action COENZYME Q10/VITAMIN E (CO-Q-10 100mg) 100 mg PO QDAY Qty: 0 0RF [FLAX SEED] PO QDAY Qty: 0 0RF [VITAMIN B-12] 2,000 iu PO QDAY Qty: 0 0RF [VITAMIN D3] 1,000 iu PO BID Qty: 0 0RF donepezil [Aricept] 5 mg tablet 5 mg PO DAILY Qty: 60 0RF gabapentin 300 mg capsule See Rx Instructions .ROUTE .COMPLEX PRN (Reason: pain) Qty: 30 2RF Dose Instruction: take 1 capsule by mouth at bedtime Rx Instructions: take 1 capsule by mouth at bedtime PRN; magnesium oxide 500 mg capsule 500 mg PO DAILY 0RF diclofenac sodium [Voltaren] 1 % gel 2 g topical QID 0RF Rx Instructions: apply to single elbow, wrist or hand; for hand includes palm/fingers/back of hand mirtazapine 30 mg tablet 30 mg PO BEDTIME Qty: 30 3RF Referrals: Jarad Van MD [Primary Care Provider] -
--- NOTE | 2021-10-27 10:02 | PC.NURSE ---
pt complains the water is causing her to have pain again, its like i need to burp but cant i offered her gingerale. but declined then changed her mind. pt took a drink of gingerale and said it still hurts, reported to dr. blake.
[2021-10-27] MEDS: MAG HYDROX/ALUMINUM/SIMETH SUS 20 ML, LIDOCAINE VISCOUS 2% 15 ML PO (10:15)
[2021-10-27 11:06] LABS: Add Manual Diff / Slide Review NO; Basophils Absolute Auto 0 /uL (0-100); Basophils Percent Auto 0.4 % (0-2); Eosinophils Absolute Auto 200 /uL (0-450); Eosinophils Percent Auto 2.4 % (2-4); Hematocrit 39.3 % (36-46); Hemoglobin 13.3 g/dL (12.0-16.0); Lymphocytes Absolute Auto 900 /uL (1100-4500); Lymphocytes Percent Auto 12.3 % (25-40); Mean Corpuscular HGB Conc 33.7 % (30-36); Mean Corpuscular Hemoglobin 28.3 PG (26-34); Mean Corpuscular Volume 83.9 fL (80-100); Monocytes Absolute Auto 500 /uL (0-900); Monocytes Percent Auto 7.4 % (3-14); Neutrophils Absolute Auto 5500 /uL (1500-7000); Neutrophils Percent Auto 77.5 % (50-75); Platelet Count 253 X10^3/uL (150-400); Red Blood Cell Count 4.68 X10^6/uL (4.0-5.2); White Blood Cell Count 7.1 X10^3/uL (4.5-11.0)
[2021-10-27 11:16] LABS: Alanine Aminotransferase 21 IU/L (<35); Albumin 4.6 g/dL (3.5-5.0); Albumin Globulin Ratio 1.6 (1.0-2.8); Alkaline Phosphatase 69 U/L (38-126); Aspartate Aminotransferase 38 IU/L (14-36); BUN Creatinine Ratio 35.9 (6-22); Bilirubin Total 0.6 mg/dL (0.2-1.3); Blood Urea Nitrogen 23 mg/dL (7-17); Calcium 9.4 mg/dL (8.4-10.2); Carbon Dioxide 27 mmol/L (22-32); Chloride 102 mmol/L (98-107); Creatine Kinase 108 U/L (30-135); Estimated Glomerular Filt Rate > 60.0 mL/min (>60); Globulin 2.8 g/dL (1.7-4.1); Glucose 104 mg/dL (80-110); Lipase 138 U/L (23-300); Magnesium 2.3 mg/dL (1.6-2.3); Potassium 4.7 mmol/L (3.4-5.1); Sodium 136 mmol/L (137-145); Total Protein 7.4 g/dL (6.3-8.2)
[2021-10-27 11:28] LABS: Troponin I < 0.012 ng/mL (0.01-0.034)
[2021-10-27 11:31] LABS: CKMB % Relative Index 2.1 % (1.5-5.0); Creatine Kinase MB 2.27 ng/mL (<2.37); HEMOLYSIS 38 (0-50)
[2021-10-27 12:01] VITALS: BP 141/68; PULSE 60; O2SAT 98
== END 2021-10-27 12:44 | disposition home or self-care (01) ==
PROVIDERS: Emergency Provider Emergency Medicine; PCP Family Medicine
DX: R07.89 Other chest pain (principal)
CPT/HCPCS: 36415; 71045; 80053; 82550; 82553; 83690; 83735; 84484; 85025; 93005; 93010; 99284

== ENCOUNTER 2021-11-17 12:39 | Emergency (ER) | payer MEDICARE, MEDICAID, SELFPAY ==
--- NOTE | 2021-11-17 12:49 | DI.RAD.S_ITS ---
PROCEDURE: XR RIBS RT MIN 3V W CXR 1V INDICATIONS: fell off bed onto remote, right anterior chest wall pain TECHNIQUE: 2 views of the left ribs were acquired, along with a single view chest. COMPARISON: [facility], CR, XR RIBS RT MIN 3V W CXR 1V, 05/24/2020, 8:31. FINDINGS: Surgical changes and devices: Non Bones and chest wall: No fractures or dislocations. No suspicious bony lesions. Overlying soft tissues appear unremarkable. Lungs and pleura: No pleural effusions or pneumothorax. Lungs appear clear. Mediastinum: Mediastinal contours appear normal. Heart size is normal. IMPRESSION: 1. No evidence of displaced left rib fracture, No evidence acute pulmonary process. 2. It is noted that a marker has been placed over the lower left ribs, and imaging of the left ribs has occurred. However, the history suggests right anterior chest wall pain. Comment: Findings were discussed with Dr. Tristan at the time of study dictation. Dictated by: Surinder Blanca M.D. on 11/17/2021 at 13:19 Approved by: Surinder Blanca M.D. on 11/17/2021 at 13:26
[2021-11-17 12:53] VITALS: BP 150/64; PULSE 80; RESP 96; TEMP 37.2
--- NOTE | 2021-11-17 13:22 | ED_ITS ---
HPI - Fall General Chief Complaint: Fall Stated Complaint: Fall, Chest Pain Time Seen by Provider: 11/17/21 13:22 Source: patient Mode of arrival: Ambulatory Related Data Home Medications Medication Instructions Recorded Confirmed COENZYME Q10/VITAMIN E (CO-Q-10 100 mg PO QDAY #0 12/28/12 07/24/21 100mg) [FLAX SEED] PO QDAY #0 12/14/16 07/24/21 [VITAMIN B-12] 2,000 iu PO QDAY #0 12/14/16 07/24/21 [VITAMIN D3] 1,000 iu PO BID #0 12/14/16 07/24/21 magnesium oxide 500 mg capsule 500 mg PO DAILY cap 03/22/19 07/24/21 diclofenac sodium 1 % topical gel 2 g TOPICAL QID 04/30/21 07/24/21 (Voltaren) Previous Rx's Medication Instructions Recorded donepezil 5 mg tablet (Aricept) 5 mg PO DAILY #60 tab 09/30/21 gabapentin 300 mg capsule See Rx Instructions .ROUTE 10/13/21 .COMPLEX PRN #30 cap mirtazapine 30 mg tablet 30 mg PO BEDTIME #30 tab 11/13/21 Allergies Allergy/AdvReac Type Severity Reaction Status Date / Time metronidazole Allergy Mild nausea Verified 07/24/21 08:05 amoxicillin [AMOXICILLIN] AdvReac Severe NAUSEA, Verified 07/24/21 08:05 DIZZINESS AND ESOPHAGITIS clindamycin [CLINDAMYCIN] AdvReac Severe NAUSEA, Verified 07/24/21 08:05 DIZZINESS, ESOPHAGITIS meclizine [MECLIZINE] AdvReac Severe NAUSEA, Verified 07/24/21 08:05 DIZZINESS AND ESOPHAGITIS shellfish derived AdvReac Severe (SHRIMP) Verified 07/24/21 08:05 [SHELLFISH DERIVED] VOMITING Patient History Medical History Adverse drug reaction Allergic rhinitis (Unknown) Arthritis (04/2006) Dental infection Endometrial polyp (Unknown) Esophagitis, acute History of hyperglycemia Hx of pilonidal cyst (1953) Insomnia, psychophysiological Memory problem Mild cognitive impairment with memory loss Muscle strain of anterior chest wall Nausea Persistent cognitive impairment Vertigo (~2011) Surgical History History of esophagogastroduodenoscopy (EGD) (~06/2020) History of third molar tooth extraction Status post dilation and curettage (01/13/10) Status post tonsillectomy and adenoidectomy Family History Father Cancer Mother Pneumonia Social History Smoking Status: Never smoker Smoking Status: Never smoker alcohol intake frequency: 0-2 drinks per day Substance Use Type: does not use Exam Initial Vital Signs Initial Vital Signs: Vital Signs Temperature 99.0 F 11/17/21 12:53 Pulse Rate 80 11/17/21 12:53 Respiratory Rate 96 H 11/17/21 12:53 Blood Pressure 150/64 H 11/17/21 12:53 Course Orders Ordered: ED Orders 11/17/21 12:49 XR ribs RT min 3V w CXR1V Stat Vital Signs Vital signs: Vital Signs - 8 hr 11/17/21 12:53 Temperature 99.0 F Pulse Rate 80 Respiratory Rate 96 H Blood Pressure 150/64 H Discharge Plan Departure Prescriptions: No Action COENZYME Q10/VITAMIN E (CO-Q-10 100mg) 100 mg PO QDAY Qty: 0 0RF [FLAX SEED] PO QDAY Qty: 0 0RF [VITAMIN B-12] 2,000 iu PO QDAY Qty: 0 0RF [VITAMIN D3] 1,000 iu PO BID Qty: 0 0RF donepezil [Aricept] 5 mg tablet 5 mg PO DAILY Qty: 60 0RF gabapentin 300 mg capsule See Rx Instructions .ROUTE .COMPLEX PRN (Reason: pain) Qty: 30 2RF Dose Instruction: take 1 capsule by mouth at bedtime Rx Instructions: take 1 capsule by mouth at bedtime PRN; mirtazapine 30 mg tablet 30 mg PO BEDTIME Qty: 30 3RF magnesium oxide 500 mg capsule 500 mg PO DAILY 0RF diclofenac sodium [Voltaren] 1 % gel 2 g topical QID 0RF Rx Instructions: apply to single elbow, wrist or hand; for hand includes palm/fingers/back of hand Referrals: Jarad Van MD [Primary Care Provider] -
== END 2021-11-17 13:47 | disposition left against medical advice (07) ==
PROVIDERS: Emergency Provider Emergency Medicine; PCP Family Medicine
DX: R07.9 Chest pain, unspecified (principal)
CPT/HCPCS: 71101; 99283

== ENCOUNTER 2021-11-18 06:41 | Emergency (ER) | payer MEDICARE, MEDICAID, SELFPAY ==
[2021-11-18 06:43] VITALS: BP 131/79; PULSE 77; RESP 20; TEMP 36.5; O2SAT 94; BMI 23.9
--- NOTE | 2021-11-18 06:51 | ED_ITS ---
HPI - General Adult General Stated complaint: Poss broken rib after fall Time Seen by Provider: 11/18/21 06:43 Source: patient Mode of arrival: Ambulatory Limitations: no limitations History of Present Illness HPI narrative: Patient is an 86-year-old female. Not on anticoagulation. Yesterday she was carrying some water. She dropped a water and then tripped over it falling forward. She was describing bilateral with left being greater than right anterior chest pain. She went to the emergency department yesterday. Had rib x-rays performed. Left without being seen prior to being evaluated in having the results of her test. She returns this morning to get the results of the x- ray yesterday. Related Data Home Medications Medication Instructions Recorded Confirmed COENZYME Q10/VITAMIN E (CO-Q-10 100 mg PO QDAY #0 12/28/12 07/24/21 100mg) [FLAX SEED] PO QDAY #0 12/14/16 07/24/21 [VITAMIN B-12] 2,000 iu PO QDAY #0 12/14/16 07/24/21 [VITAMIN D3] 1,000 iu PO BID #0 12/14/16 07/24/21 magnesium oxide 500 mg capsule 500 mg PO DAILY cap 03/22/19 07/24/21 diclofenac sodium 1 % topical gel 2 g TOPICAL QID 04/30/21 07/24/21 (Voltaren) Previous Rx's Medication Instructions Recorded donepezil 5 mg tablet (Aricept) 5 mg PO DAILY #60 tab 09/30/21 gabapentin 300 mg capsule See Rx Instructions .ROUTE 10/13/21 .COMPLEX PRN #30 cap mirtazapine 30 mg tablet 30 mg PO BEDTIME #30 tab 11/13/21 Allergies Allergy/AdvReac Type Severity Reaction Status Date / Time metronidazole Allergy Mild nausea Verified 07/24/21 08:05 amoxicillin [AMOXICILLIN] AdvReac Severe NAUSEA, Verified 07/24/21 08:05 DIZZINESS AND ESOPHAGITIS clindamycin [CLINDAMYCIN] AdvReac Severe NAUSEA, Verified 07/24/21 08:05 DIZZINESS, ESOPHAGITIS meclizine [MECLIZINE] AdvReac Severe NAUSEA, Verified 07/24/21 08:05 DIZZINESS AND ESOPHAGITIS shellfish derived AdvReac Severe (SHRIMP) Verified 07/24/21 08:05 [SHELLFISH DERIVED] VOMITING Review of Systems Cardiovascular Comments: Anterior chest wall pain Respiratory Comments: No shortness of breath Integumentary/Breasts Skin/Breast: Reports system reviewed and no additional complaints, except as documented Hematologic/Lymphatic On Anticoagulants: No Patient History Medical History Adverse drug reaction Allergic rhinitis (Unknown) Arthritis (04/2006) Dental infection Endometrial polyp (Unknown) Esophagitis, acute History of hyperglycemia Hx of pilonidal cyst (1953) Insomnia, psychophysiological Memory problem Mild cognitive impairment with memory loss Muscle strain of anterior chest wall Nausea Persistent cognitive impairment Vertigo (~2011) Surgical History History of esophagogastroduodenoscopy (EGD) (~06/2020) History of third molar tooth extraction Status post dilation and curettage (01/13/10) Status post tonsillectomy and adenoidectomy Family History Father Cancer Mother Pneumonia Social History Smoking Status: Never smoker Smoking Status: Never smoker alcohol intake frequency: 0-2 drinks per day Substance Use Type: does not use Exam HENMT Head: normal to inspection and normocephalic Chest Chest: No crepitus and tenderness (Anterior lower left chest wall) Resp Effort & Inspection: normal respiratory effort Auscultation: clear to auscultation bilaterally GI Inspection: normal to inspection Palpation: soft and No tender Skin General: no rashes or lesions noted Medical Decision Making Imaging Data Rib x-ray: Radiologist's Impression: [address] [address] XRay Report Addendum Patient: Mariela Banks MR#: [id number] : 1935 Acct:[id number] Age/Sex: 86 / F Date of Service: 11/17/21 Loc: ED Accession Number: [id number] ?? Procedure: XR ribs LT min 3V w CXR1V Ordering Provider: Whitney Tristan MD ADDENDUMThis report includes an Addendum and supersedes previous reports for this exam. ? ? ? PROCEDURE:? XR RIBS RT MIN 3V W CXR 1V ? INDICATIONS:? fell off bed onto remote, right anterior chest wall pain ? TECHNIQUE:? 2 views of the left ribs were acquired, along with a single view chest.? ? COMPARISON:? Located Within [facility], CR, XR RIBS RT MIN 3V W CXR 1V, 05/24/2020, 8:31. ? FINDINGS:? ? Surgical changes and devices:? Non ? Bones and chest wall:? No fractures or dislocations.? No suspicious bony lesions.? Overlying soft tissues appear unremarkable.? ? Lungs and pleura:? No pleural effusions or pneumothorax.? Lungs appear clear.? ? Mediastinum:? Mediastinal contours appear normal.? Heart size is normal.? ? IMPRESSION:? ? 1. No evidence of displaced left rib fracture, No evidence acute pulmonary process. ? ? 2. It is noted that a marker has been placed over the lower left ribs, and imaging of the left ribs has occurred.? However, the history suggests right anterior chest wall pain. ? Comment: Findings were discussed with Dr. Tristan at the time of study dictation. ? Dictated by: Surinder Blanca M.D. on 11/17/2021 at 13:19 ? ? Approved by: Surinder Blanca M.D. on 11/17/2021 at 13:26 ? ? ? ADDENDUM:? After further evaluation, patient's symptoms are on the left.? The left ribs were image.? No displaced left rib fracture. ? ? ? Dictated by: Surinder Blanca M.D. on 11/17/2021 at 15:14 ? ? Approved by: Surinder Blanca M.D. on 11/17/2021 at 15:14 ? Addendum Dictated By: Surinder Blanca MD Addendum Signed By: Addendum Cosigned By: DD/ /03/1518 TD/TT: 11/17/2102/03/1518 PROCEDURE:? XR RIBS RT MIN 3V W CXR 1V ? INDICATIONS:? fell off bed onto remote, right anterior chest wall pain ? TECHNIQUE:? 2 views of the left ribs were acquired, along with a single view chest.? ? COMPARISON:? Located Within [facility], CR, XR RIBS RT MIN 3V W CXR 1V, 05/24/2020, 8:31. ? FINDINGS:? ? Surgical changes and devices:? Non ? Bones and chest wall:? No fractures or dislocations.? No suspicious bony lesions.? Overlying soft tissues appear unremarkable.? ? Lungs and pleura:? No pleural effusions or pneumothorax.? Lungs appear clear.? ? Mediastinum:? Mediastinal contours appear normal.? Heart size is normal.? ? IMPRESSION:? ? 1. No evidence of displaced left rib fracture, No evidence acute pulmonary process. ? ? 2. It is noted that a marker has been placed over the lower left ribs, and imaging of the left ribs has occurred.? However, the history suggests right anterior chest wall pain. ? Comment: Findings were discussed with Dr. Tristan at the time of study dictation. ? Dictated by: Surinder Blanca M.D. on 11/17/2021 at 13:19 ? ? Approved by: Surinder Blanca M.D. on 11/17/2021 at 13:26?? MDM Narrative Medical decision making narrative: X-ray included in this note is for reference purposes only. It was taken during her last visit where she left without being seen. She has no respiratory distress. There are no displaced rib fractures noted on the x-ray today. I did discuss the findings with the patient. We discussed return precautions and follow-up instructions. She expressed understanding and agreement. Discharge Plan Departure Patient Disposition: Home Clinical Impression: Contusion of rib Instructions: DI for Rib Contusion Activity Restrictions/Additional Instructions: The x-rays that were performed yesterday showed no signs of any rib fractures. The lungs on the x-ray showed no issues as well. Contact your primary care doctor for follow-up and return to the emergency department for any new or worsening symptoms. Prescriptions: No Action COENZYME Q10/VITAMIN E (CO-Q-10 100mg) 100 mg PO QDAY Qty: 0 0RF [FLAX SEED] PO QDAY Qty: 0 0RF [VITAMIN B-12] 2,000 iu PO QDAY Qty: 0 0RF [VITAMIN D3] 1,000 iu PO BID Qty: 0 0RF donepezil [Aricept] 5 mg tablet 5 mg PO DAILY Qty: 60 0RF gabapentin 300 mg capsule See Rx Instructions .ROUTE .COMPLEX PRN (Reason: pain) Qty: 30 2RF Dose Instruction: take 1 capsule by mouth at bedtime Rx Instructions: take 1 capsule by mouth at bedtime PRN; mirtazapine 30 mg tablet 30 mg PO BEDTIME Qty: 30 3RF magnesium oxide 500 mg capsule 500 mg PO DAILY 0RF diclofenac sodium [Voltaren] 1 % gel 2 g topical QID 0RF Rx Instructions: apply to single elbow, wrist or hand; for hand includes palm/fingers/back of hand Referrals: Jarad Van MD [Primary Care Provider] -
== END 2021-11-18 06:55 | disposition home or self-care (01) ==
PROVIDERS: Emergency Provider Emergency Medicine; PCP Family Medicine
DX: S20.212A Contusion of left front wall of thorax, initial encounter (principal); W01.0XXA Fall on same level from slipping, tripping and stumbling without subsequent striking against object, initial encounter
CPT/HCPCS: 99281

== ENCOUNTER 2022-07-17 11:30 | Outpatient (RCR) | payer MEDICARE, MEDICAID, SELFPAY ==
--- NOTE | 2022-03-20 15:24 | ST.OP.ACL ---
Visit Care Team Role Provider Type Jarad Van MD Attending Provider Physician Family Provider Primary Care Provider Referring Provider Specialty: Family Practice Address: [address] [place] [address], [facility] Email: [email or web address] Adult Cognitive Linguistic Evaluation [employer] Adult Cognitive Linguistic Eval Start: 03/20/22 14:30 Freq: Status: Active Protocol: Document 03/20/22 14:30 ZS (Rec: 03/20/22 14:47 ZS [id number]) Adult Cognitive Linguistic Evaluation Session Time Visit Start Time 09:30 Visit Stop Time 10:15 Total Visit Minutes 45 Visit Information Visit Number Initial Evaluation Plan of Care Dates 03/20/2022 - 11/14/2022 Insurance Information Medicare Referral Referring Provider Dr. Van Reason for Referral Memory loss Setting Assessment Location Outpatient Care Visit Type Note Type Initial evaluation Next Note Type Next Note Type Treatment Note Patient Information Identification Type Name Patient History Mariela Maddox is an 87-year- old female. She arrived on time with her daughter, who reported Varsha has been having difficulty remembering everything. Varsha reported she is able to recall older information such as her address and family member names, but has difficulty with new information. Her daughter corrected that Varsha has difficulty recalling her address and phone number. 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 Varsha exhibited difficultly recalling personal facts including her age and address. She required multiple repetitions of instructions for tasks and would become distracted with excessive details. She exhibited significant difficulty recalling details of a story, in retelling or answering questions about it. Varsha identified 3 shapes on the first trial of design memory when only 2 were shown. She identified when numbers were incorrectly spaced on her clock drawing, but was unable to correct them. The time was set correctly given typical placement of a 2 on a clock, though her arrow was pointing to the 3 she had drawn. She was unable to complete either maze, appearing to forget the directions and become confused by the task. Visuospatial skills appears to be a relative strength, as observed in her design generation task. Recommend speech therapy to provide education and support for neurocognitive skills, especially as they relate to activities of daily living such as medication management and medical decision making. Findings/Results Cognitive Function Mildly impaired Prognosis Prognosis Fair Based on Cognitive status,Family support,Duration of symptoms/ severity,Time since onset Plan of Care Speech-Language Treatment Yes Frequency Once a week Duration 45 minutes Patient/Caregiver Education Patient expressed agreement with goals and treatment plans ,Family/caregivers expressed agreement with goals and treatment plan,Patient requires further education/ training,Family/caregivers require further education/ training Short Term Goals 1. Varsha will demonstrate increased ability to recall events from her day using external memory aids (e.g., memory book) as determined by pt and family report. 2. Varsha will recall 3-5 steps in a process (e.g., instructions for a given task) given verbal directions across 2 sessions. Residential Goals 1. Varsha will demonstrate independent use of cognitive strategies (e.g., calendars, memory book, etc.) to improve memory in her daily life as reported by pt and family and determined by clinician judgment.
--- NOTE | 2022-03-20 15:24 | ST.OPPOC ---
Physical, Occupational & Speech Therapy At [facility] Visit Care Team Role Provider Type Jarad Van MD Attending Provider Physician Family Provider Primary Care Provider Referring Provider Address: [address] [place] [address], [id number] Speech Pathology Plan of Care Plan of Care Dates 03/20/2022 - 11/14/[address] Van Patient History Mariela Maddox is an 87-year-old female. She arrived on time with her daughter, who reported Varsha has been having difficulty remembering everything. Varsha reported she is able to recall older information such as her address and family member names, but has difficulty with new information. Her daughter corrected that Varsha has difficulty recalling her address and phone number. Varsah received a diagnosis of moderate neurocognitive disease in September 2021 and recently moved into an assisted living facility. Short Term Goals 1. Varsha will demonstrate increased ability to recall events from her day using external memory aids (e.g., memory book) as determined by pt and family report. 2. Varsha will recall 3-5 steps in a process (e.g., instructions for a given task) given verbal directions across 2 sessions. Chcf Goals 1. Varsha will demonstrate independent use of cognitive strategies (e.g., calendars, memory book, etc.) to improve memory in her daily life as reported by pt and family and determined by clinician judgment. Comment: Electronically Signed by: JOCELIN Daniel 03/20/22 6064 If you are in agreement with this Plan of Care, please return a signed and dated copy. I have reviewed this Plan of Care and certify that the skilled therapy services above are required to meet the patient?s needs. Physician Signature Date Printed Name and Credentials Clinical Instructor Signature Printed Name and Credentials
--- NOTE | 2022-03-27 10:16 | ST.OPTN ---
Visit Care Team Role Provider Type Jarad Van MD Attending Provider Physician Family Provider Primary Care Provider Referring Provider Address: [address] [place] [address], [facility] [employer]ESS [employer]ACING HANDICAPPER Treatment Note HARNESS [employer]ACING HANDICAPPER Treatment Note Start: 03/27/22 10:07 Freq: Status: Active Protocol: Document 03/27/22 10:07 MESERET (Rec: 03/27/22 10:16 MESERET [id number]) Speech Pathology Treatment Note Session Time Visit Start Time 09:30 Visit Stop Time 10:05 Total Visit Minutes 35 Visit Information Visit Number 1 Plan of Care Dates 03/20/2022 - 11/14/2022 Insurance Information Medicare Setting Treatment Setting Outpatient Care Visit Type Note Type Treatment Note Next Note Type Next Note Type Treatment Note General Information Patient History Mariela Maddox is an 87-year- old female. She arrived on time with her daughter, who reported Varsha has been having difficulty remembering everything. Varsha reported she is able to recall older information such as her address and family member names, but has difficulty with new information. Her daughter corrected that Varsha has difficulty recalling her address and phone number. 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 Results of the CLQT indicate a mild deficit in attention, executive functions, visuospatial skills, and clock drawing and a moderate deficit in memory and language . Varsha exhibited difficutly recalling personal facts including her age and address. She required multiple repetitions of instructions for tasks and would become distracted with excessive details. She exhibited significant difficulty recalling details of a story, in retelling or answering questions about it. Varsha identified 3 shapes on the first trial of design memory when only 2 were shown. She identified when numbers were incorrectly spaced on her clock drawing, but was unable to correct them. The time was set correctly given typical placement of a 2 on a clock, though her arrow was pointing to the 3 she had drawn. She was unable to complete either maze, appearing to forget the directions and become confused by the task. Visuospatial skills appears to be a relative strength, as observed in her design generation task. Recommend speech therapy to provide education and support for neurocognitive skills, especially as they relate to activities of daily living such as medication management and medical decision making. Subjective Identification Type Name Identification Reconciled With Medical Record Others Present Family Observations/Patient Presentation Varsha arrived on time accompanied by her daughter, who was present for the session. Daughter reported that Varsha's medications are managed by the care facility at this time. She added they purchased a memory notebook, but Varsha was having difficulty remembering where it is and what it is used for. Chief Complaint(s) Cognitive Objective Short Term Goals 1. Varsha will demonstrate increased ability to recall events from her day using external memory aids (e.g., memory book) as determined by pt and family report. 2. Varsha will recall 3-5 steps in a process (e.g., instructions for a given task) given verbal directions across 2 sessions. Alf Goals 1. Varsha will demonstrate independent use of cognitive strategies (e.g., calendars, memory book, etc.) to improve memory in her daily life as reported by pt and family and determined by clinician judgment. Treatment Activities Added tabs to memory notebook. Discussed setting up entry way where each item has a home to aid in recall of where items are. Provided worksheet for task lists with keywords and discussed use of these. Varsha and daughter to determine what tasks Varsha would like support with and develop steps in process to increase recall and automaticity for increased independence at home . Varsha and daughter reported understanding of strategies discussed and agreement with treatment plan at this time. Assessment Patient Response to Treatment Good Impairments Identified Cognitive communication Progress Towards Goals Good Progress Assessment of Overall Progress Improving Assessment of Improvement Varsha exhibited difficulty in recalling purpose of memory notebook and became distracted by text in notebook x3 during session. She did not remember where she had placed the notebook once she entered the therapy room, despite having just set it down on the table. Varsha was unable to recall any events she had scheduled for the day and required her daughter to tell her. Reviewed with Patient Goals,Home Exercise Program Patient/Caregiver Understanding Excellent Plan Amount of Therapy Recommended 6 Months Frequency of Treatment Once a Week Length of Session 45 Minutes Therapeutic Contents Cognitive-Linguistic Training Provided Patient/Caregiver Instruction Home Exercise Program,Plan of Care,Questions/Concerns Therapy Recommendations Continue with Current Program
--- NOTE | 2022-04-03 10:17 | ST.OPTN ---
Visit Care Team Role Provider Type Jarad Van MD Attending Provider Physician Family Provider Primary Care Provider Referring Provider Address: [address] [place] [address], [facility] BSA OFFICER Treatment Note BSA OFFICER Treatment Note Start: 03/27/22 10:07 Freq: Status: Active Protocol: Document 04/03/22 10:05 MESERET (Rec: 04/03/22 10:17 ZS [id number]) Speech Pathology Treatment Note Session Time Visit Start Time 09:30 Visit Stop Time 10:05 Total Visit Minutes 35 Visit Information Visit Number 2 Plan of Care Dates 03/20/2022 - 11/14/2022 Insurance Information Medicare Setting Treatment Setting Outpatient Care Visit Type Note Type Treatment Note Next Note Type Next Note Type Treatment Note General Information Patient History Mariela Maddox is an 87-year- old female. She arrived on time with her daughter, who reported Varsha has been having difficulty remembering everything. Varsha reported she is able to recall older information such as her address and family member names, but has difficulty with new information. Her daughter corrected that Varsha has difficulty recalling her address and phone number. 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 Results of the CLQT indicate a mild deficit in attention, executive functions, visuospatial skills, and clock drawing and a moderate deficit in memory and language . Varsha exhibited difficultly recalling personal facts including her age and address. She required multiple repetitions of instructions for tasks and would become distracted with excessive details. She exhibited significant difficulty recalling details of a story, in retelling or answering questions about it. Varsha identified 3 shapes on the first trial of design memory when only 2 were shown. She identified when numbers were incorrectly spaced on her clock drawing, but was unable to correct them. The time was set correctly given typical placement of a 2 on a clock, though her arrow was pointing to the 3 she had drawn. She was unable to complete either maze, appearing to forget the directions and become confused by the task. Visuospatial skills appears to be a relative strength, as observed in her design generation task. Recommend speech therapy to provide education and support for neurocognitive skills, especially as they relate to activities of daily living such as medication management and medical decision making. Subjective Identification Type Name Identification Reconciled With Medical Record Others Present Family Observations/Patient Presentation Varsha arrived on time accompanied by her daughter and son, who were present for the session. Daughter reported that Varsha is having difficulty tracking where it is as it does not fit in her purse and Varsha likes things neat and clean at home, so it often gets moved or covered. Daughter added Varsha requires prompting to use the notebook and often does not remember what the notebook is. Chief Complaint(s) Cognitive Objective Short Term Goals 1. Varsha will demonstrate increased ability to recall events from her day using external memory aids (e.g., memory book) as determined by pt and family report. 2. Varsha will recall 3-5 steps in a process (e.g., instructions for a given task) given verbal directions across 2 sessions. Boiler Tender Goals 1. Varsha will demonstrate independent use of cognitive strategies (e.g., calendars, memory book, etc.) to improve memory in her daily life as reported by pt and family and determined by clinician judgment. Treatment Activities Provided education regarding establishing new habit with notebook and time required for this process. Discussed finding home for notebook in Varsha's house, adding labels to remotes to prompt notebook use , and reviewed what task list is used for. Assessment Patient Response to Treatment Good Impairments Identified Cognitive communication Progress Towards Goals Good Progress Assessment of Overall Progress Improving Assessment of Improvement Varsha exhibited difficulty in recalling purpose of memory notebook and that she had a notebook. She shared her current system for remembering things, which included an envelope with contact information for people in addition to several notes, grocery lists, money, etc. placed inside the envelope. Discussed finding a notebook that is a similar size to the envelope, transferring contact information into notebook, adding a front pocket to notebook, and keeping envelope inside notebook to establish habit of checking notebook rather than envelope. Daughter expressed concern for amount of time it is taking for Varsha to independently use notebook and clinician provided education regarding establishing new habits and recommended trying memory notebook for at least a month before evaluating progress. Discussed use of task list to recall steps in a process in addition to using resources tab in memory notebook. Reviewed purpose of and how to use task list. Discussed prompts over the phone and that other providers can give Varsha to encourage use of memory notebook. Home practice: 1. find a home for notebook where it will not be moved or covered. 2. try a smaller notebook that can be coupled with envelope system. 3. outline some tasks for Varsha to begin learning using task list. Reviewed with Patient Goals,Home Exercise Program Patient/Caregiver Understanding Excellent Plan Amount of Therapy Recommended 6 Months Frequency of Treatment Once a Week Length of Session 45 Minutes Therapeutic Contents Cognitive-Linguistic Training Provided Patient/Caregiver Instruction Home Exercise Program,Plan of Care,Questions/Concerns Therapy Recommendations Continue with Current Program
--- NOTE | 2022-04-17 10:27 | ST.OPTN ---
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 She arrived on time with her daughter, who reported Varsha has been having difficulty remembering everything. Varsha reported she is able to recall older information such as her address and family member names, but has difficulty with new information. Her daughter corrected that Varsha has difficulty recalling her address and phone number. 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 Results of the CLQT indicate a mild deficit in attention, executive functions, visuospatial skills, and clock drawing and a moderate deficit in memory and language . Varsha exhibited difficultly recalling personal facts including her age and address. She required multiple repetitions of instructions for tasks and would become distracted with excessive details. She exhibited significant difficulty recalling details of a story, in retelling or answering questions about it. Varsha identified 3 shapes on the first trial of design memory when only 2 were shown. She identified when numbers were incorrectly spaced on her clock drawing, but was unable to correct them. The time was set correctly given typical placement of a 2 on a clock, though her arrow was pointing to the 3 she had drawn. She was unable to complete either maze, appearing to forget the directions and become confused by the task. Visuospatial skills appears to be a relative strength, as observed in her design generation task. Recommend speech therapy to provide education and support for neurocognitive skills, especially as they relate to activities of daily living such as medication management and medical decision making. Subjective Identification Type Name Identification Reconciled With Medical Record Others Present Family Observations/Patient Presentation Varsha arrived on time accompanied by her daughter, who was present for the session. Daughter reported Varsha has moved to a new place and they are working on finding a home for the memory notebook in the new place. Daughter added Varsha requires prompting to use the notebook, but has started using it more. Chief Complaint(s) Cognitive Objective Short Term Goals 1. Varsha will demonstrate increased ability to recall events from her day using external memory aids (e.g., memory book) as determined by pt and family report. 2. Varsha will recall 3-5 steps in a process (e.g., instructions for a given task) given verbal directions across 2 sessions. Tack Cleaner Goals 1. Varsha will demonstrate independent use of cognitive strategies (e.g., calendars, memory book, etc.) to improve memory in her daily life as reported by pt and family and determined by clinician judgment. Treatment Activities Discussed and practiced use of notebook. Viewed video of Varsha 's new place to find a home for the memory notebook. Assessment Patient Response to Treatment Good Impairments Identified Cognitive communication Progress Towards Goals Good Progress Assessment of Overall Progress Improving Assessment of Improvement Varsha exhibited significant improvement in recalling purpose of memory notebook and that she had a notebook. She continues to use her envelope with contact information and several notes in conjunction with the memory notebook. Observed increased notes in notebook, though there appears to be confusion between events (for Varsha's daily schedule) and Diary where Varsha writes a narrative about what happened during the day. Discussed finding a notebook that is a similar size to the envelope, transferring contact information into notebook, adding a front pocket to notebook, and keeping envelope inside notebook to establish habit of checking notebook rather than envelope. Varsha to use current notebook at home rather than finding a smaller notebook to keep in her purse at this time. May adjust this plan as habit has formed more. Daughter reported Varsha does not need task lists as she is using her notebook to identify the correct channel for the TV. Practiced finding information written in session in the memory notebook. Varsha observed to locate the appropriate tab and reference information previously written in memory notebook to answer questions. Home practice: 1. find a home for notebook where it will not be moved or covered. 2. continue use of notebook with prompts following addition of information to have Varsha locate added items in notebook. Reviewed with Patient Goals,Home Exercise Program Patient/Caregiver Understanding Excellent Plan Amount of Therapy Recommended 6 Months Frequency of Treatment Once a Week Length of Session 45 Minutes Therapeutic Contents Cognitive-Linguistic Training Provided Patient/Caregiver Instruction Home Exercise Program,Plan of Care,Questions/Concerns Therapy Recommendations Continue with Current Program
--- NOTE | 2022-05-01 09:20 | ST.OPTN ---
Visit Care Team Role Provider Type Jarad Van MD Attending Provider Physician Family Provider Primary Care Provider Referring Provider Address: [address] [place] [address], [facility] VAULT MAKER Treatment Note VAULT MAKER Treatment Note Start: 03/27/22 10:07 Freq: Status: Active Protocol: Document 05/01/22 09:15 ZS (Rec: 05/01/22 09:20 ZS [id number]) Speech Pathology Treatment Note Session Time Visit Start Time 09:30 Visit Stop Time 10:15 Total Visit Minutes 45 Visit Information Visit Number 4 Plan of Care Dates 03/20/2022 - 11/14/2022 Insurance Information Medicare Setting Treatment Setting Outpatient Care Visit Type Note Type Treatment Note Next Note Type Next Note Type Treatment Note General Information Patient History Mariela Maddox is an 87-year- old female. She arrived on time with her daughter, who reported Varsha has been having difficulty remembering everything. Varsha reported she is able to recall older information such as her address and family member names, but has difficulty with new information. Her daughter corrected that Varsha has difficulty recalling her address and phone number. 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 Results of the CLQT indicate a mild deficit in attention, executive functions, visuospatial skills, and clock drawing and a moderate deficit in memory and language . Varsha exhibited difficultly recalling personal facts including her age and address. She required multiple repetitions of instructions for tasks and would become distracted with excessive details. She exhibited significant difficulty recalling details of a story, in retelling or answering questions about it. Varsha identified 3 shapes on the first trial of design memory when only 2 were shown. She identified when numbers were incorrectly spaced on her clock drawing, but was unable to correct them. The time was set correctly given typical placement of a 2 on a clock, though her arrow was pointing to the 3 she had drawn. She was unable to complete either maze, appearing to forget the directions and become confused by the task. Visuospatial skills appears to be a relative strength, as observed in her design generation task. Recommend speech therapy to provide education and support for neurocognitive skills, especially as they relate to activities of daily living such as medication management and medical decision making. Subjective Identification Type Name Identification Reconciled With Medical Record Others Present Family Observations/Patient Presentation Varsha arrived on time accompanied by her daughter and son, who were present for the session. Daughter reported Varsha remembered to bring her memory notebook without reminders today. Chief Complaint(s) Cognitive Objective Short Term Goals 1. Varsha will demonstrate increased ability to recall events from her day using external memory aids (e.g., memory book) as determined by pt and family report. 2. Varsha will recall 3-5 steps in a process (e.g., instructions for a given task) given verbal directions across 2 sessions. Fdc Goals 1. Varsha will demonstrate independent use of cognitive strategies (e.g., calendars, memory book, etc.) to improve memory in her daily life as reported by pt and family and determined by clinician judgment. Treatment Activities Discussed and practiced use of notebook. Revised events tab to schedule. Before next session: family to try adding calendar in the front of memory notebook, practice calling the front desk receptionist, and start task list for temperature control. Assessment Patient Response to Treatment Good Impairments Identified Cognitive communication Progress Towards Goals Good Progress Assessment of Overall Progress Improving Assessment of Improvement Varsha exhibited significant improvement in recalling purpose of memory notebook. She continues to use her envelope with contact information and several notes in conjunction with the memory notebook. Observed increased notes in notebook, though there appears to be confusion between events (for Varsha's daily schedule) and Diary where Varsha writes a narrative about what happened during the day. Changed events tab to schedule and made tabs in notebook bigger so they are easier to read. Discussed addition of calendar to front page to provide visual overview of current month. Potential future addition of resources tab to provide list of resources available at facility in addition to phone numbers and TV help. Varsha to use current notebook at home rather than finding a smaller notebook to keep in her purse at this time. May adjust this plan as habit has formed more. Practiced finding information written in session in the memory notebook. Varsha observed to locate the appropriate tab and reference information previously written in memory notebook to answer questions. Home practice: 1. continue use of notebook with prompts following addition of information to have Varsha locate added items in notebook. Reviewed with Patient Goals,Home Exercise Program Patient/Caregiver Understanding Excellent Plan Amount of Therapy Recommended 6 Months Frequency of Treatment Once a Week Length of Session 45 Minutes Therapeutic Contents Cognitive-Linguistic Training Provided Patient/Caregiver Instruction Home Exercise Program,Plan of Care,Questions/Concerns Therapy Recommendations Continue with Current Program
--- NOTE | 2022-06-12 10:15 | ST.OPTN ---
Visit Care Team Role Provider Type Jarad Van MD Attending Provider Physician Family Provider Primary Care Provider Referring Provider Address: [address] [place] [address], [facility] MOLD INSPECTOR Treatment Note MOLD INSPECTOR Treatment Note Start: 03/27/22 10:07 Freq: Status: Active Protocol: Document 06/12/22 10:04 MESERET (Rec: 06/12/22 10:14 ZS [id number]) Speech Pathology Treatment Note Session Time Visit Start Time 09:30 Visit Stop Time 10:05 Total Visit Minutes 35 Visit Information Visit Number 5 Plan of Care Dates 03/20/2022 - 11/14/2022 Insurance Information Medicare Setting Treatment Setting Outpatient Care Visit Type Note Type Treatment Note Next Note Type Next Note Type Treatment Note General Information Patient History Mariela Maddox is an 87-year- old female. She arrived on time with her daughter, who reported Varsha has been having difficulty remembering everything. Varsha reported she is able to recall older information such as her address and family member names, but has difficulty with new information. Her daughter corrected that Varsha has difficulty recalling her address and phone number. 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 Results of the CLQT indicate a mild deficit in attention, executive functions, visuospatial skills, and clock drawing and a moderate deficit in memory and language . Varsha exhibited difficulty recalling personal facts including her age and address. She required multiple repetitions of instructions for tasks and would become distracted with excessive details. She exhibited significant difficulty recalling details of a story, in retelling or answering questions about it. Varsha identified 3 shapes on the first trial of design memory when only 2 were shown. She identified when numbers were incorrectly spaced on her clock drawing, but was unable to correct them. The time was set correctly given typical placement of a 2 on a clock, though her arrow was pointing to the 3 she had drawn. She was unable to complete either maze, appearing to forget the directions and become confused by the task. Visuospatial skills appears to be a relative strength, as observed in her design generation task. Recommend speech therapy to provide education and support for neurocognitive skills, especially as they relate to activities of daily living such as medication management and medical decision making. Subjective Identification Type Name Identification Reconciled With Medical Record Others Present Family Observations/Patient Presentation Varsha arrived on time accompanied by her daughter, who was present for the session. Daughter reported Varsha forgot her memory notebook on the bus, but the log driver brought it back. She stated they had not practiced calling the hotel front desk agent and had not tried putting a calendar in the front of the notebook. She reported she was not sure if there was confusion with the current tabs as she had not looked at the notebook content since last session. Daughter stated they did do a task list for the thermostat and this went well. Daughter added Varsha will be getting a new flip phone and they are going to transition to a new notebook with only two sections and a pocket in the middle. Chief Complaint(s) Cognitive Objective Short Term Goals 1. Varsha will demonstrate increased ability to recall events from her day using external memory aids (e.g., memory book) as determined by pt and family report. 2. Varsha will recall 3-5 steps in a process (e.g., instructions for a given task) given verbal directions across 2 sessions. Retirement Goals 1. Varsha will demonstrate independent use of cognitive strategies (e.g., calendars, memory book, etc.) to improve memory in her daily life as reported by pt and family and determined by clinician judgement. Treatment Activities Discussed tab formatting for new notebook. Troubleshot missed doctor's appointment. Before next session: family to try adding calendar in the front of memory notebook, transition to new notebook with diary and resources tabs and calendar, and start task list for calling [employer]. Will work on transition to new phone once it has been acquired. Assessment Patient Response to Treatment Good Impairments Identified Cognitive communication Progress Towards Goals Good Progress Assessment of Overall Progress Improving Assessment of Improvement Observed increased notes in notebook, though there appears to be confusion between schedule (for Varsha's daily schedule) and Diary where Varsha writes a narrative about what happened during the day. Will combine these into one section in new notebook and use calendar in front of notebook for scheduling/ appointment recall. Varsha reported no difficulty calling the hotel front desk agent. She had written down some errored information in her notebook regarding [employer] and family will create a task list for calling to reduce confusion. Discussed addition of this information to resources tab in new notebook . Discussed how to ease transition to new phone. Discussed additional questions (e.g., What do you like about the new shoes? What would you change?) to determine if Varsha finds the new shoes comfortable as family has been having difficulty with Varsha reporting new shoes as fine and then reading that they are uncomfortable in the memory notebook. Reviewed with Patient Goals,Home Exercise Program Patient/Caregiver Understanding Excellent Plan Amount of Therapy Recommended 6 Months Frequency of Treatment Once a Week Length of Session 45 Minutes Therapeutic Contents Cognitive-Linguistic Training Provided Patient/Caregiver Instruction Home Exercise Program,Plan of Care,Questions/Concerns Therapy Recommendations Continue with Current Program
--- NOTE | 2022-07-17 12:15 | ST.OPTN ---
Visit Care Team Role Provider Type Jarad Van MD Attending Provider Physician Family Provider Primary Care Provider Referring Provider Address: [address] [place] [address], [facility] SOLUTIONS EXECUTIVE SECURITY Treatment Note SOLUTIONS EXECUTIVE SECURITY Treatment Note Start: 03/27/22 10:07 Freq: Status: Active Protocol: Document 07/17/22 12:04 ZS (Rec: 07/17/22 12:13 ZS [id number]) Speech Pathology Treatment Note Session Time Visit Start Time 11:30 Visit Stop Time 12:05 Total Visit Minutes 35 Visit Information Visit Number 6 Plan of Care Dates 03/20/2022 - 11/14/2022 Insurance Information Medicare Setting Treatment Setting Outpatient Care Visit Type Note Type Treatment Note Next Note Type Next Note Type Treatment Note General Information Patient History Mariela Maddox is an 87-year- old female. She arrived on time with her daughter, who reported Varsha has been having difficulty remembering everything. Varsha reported she is able to recall older information such as her address and family member names, but has difficulty with new information. Her daughter corrected that Varsha has difficulty recalling her address and phone number. 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 Results of the CLQT indicate a mild deficit in attention, executive functions, visuospatial skills, and clock drawing and a moderate deficit in memory and language . Varsha exhibited difficultly recalling personal facts including her age and address. She required multiple repetitions of instructions for tasks and would become distracted with excessive details. She exhibited significant difficulty recalling details of a story, in retelling or answering questions about it. Varsha identified 3 shapes on the first trial of design memory when only 2 were shown. She identified when numbers were incorrectly spaced on her clock drawing, but was unable to correct them. The time was set correctly given typical placement of a 2 on a clock, though her arrow was pointing to the 3 she had drawn. She was unable to complete either maze, appearing to forget the directions and become confused by the task. Visuospatial skills appears to be a relative strength, as observed in her design generation task. Recommend speech therapy to provide education and support for neurocognitive skills, especially as they relate to activities of daily living such as medication management and medical decision making. Subjective Identification Type Name Identification Reconciled With Medical Record Others Present Family Observations/Patient Presentation Varsha arrived on time accompanied by her daughter and son, who were present for the session. Varsha had her memory notebook with her. Chief Complaint(s) Cognitive Patient/Caregiver Compliance with Home Poor Exercise Program Objective Short Term Goals 1. Varsha will demonstrate increased ability to recall events from her day using external memory aids (e.g., memory book) as determined by pt and family report. 2. Varsha will recall 3-5 steps in a process (e.g., instructions for a given task) given verbal directions across 2 sessions. 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 Varsha will demonstrate independent use of cognitive strategies (e.g., calendars, memory book, etc.) to improve memory in her daily life as reported by pt and family and determined by clinician judgment. Treatment Activities Discussed tab formatting for new notebook. [employer] double-booking transportation. Before next session: family to try adding calendar in the front of memory notebook, transition to new notebook with diary and resources tabs and calendar, and start task list for contacts list on phone. Transitioning to once a month as pt does not want to travel for appointments every week and has reduced compliance with attendance as a result. Assessment Patient Response to Treatment Good Impairments Identified Cognitive communication Progress Towards Goals Delayed Progress Assessment of Overall Progress Unchanged Assessment of Improvement Calendar had not been added to notebook and Varsha was observed to continue using old notebook with same tabs. Family reported they stopped using schedule tab as it was getting mixed up with diary tab. Observed schedule and diary tab were both present in current notebook. [employer] task list was created, though family reported there were several instances where Varsha would book [employer] and then get a ride from a friend. Family stated they have taken over booking transportation at this point. Discussed addition of this information to resources tab in new notebook. Discussed task list for finding contacts in new phone instead of using recents to find phone numbers. Varsha missed last week's appointment as she did not want to come in and almost cancelled this appointment for the same reason, per family. Discussed incorporating more tasks/goals Varsha would like to work on in therapy or transitioning to once a month to ease transportation needs. Varsha did not have any goals she would like to work on and said I need help. Everything's fine. when asked what she would like to get out of therapy. Family and Varsha expressed agreement with trying once a month appointment. Reviewed with Patient Goals,Home Exercise Program Patient/Caregiver Understanding Excellent Plan Amount of Therapy Recommended 6 Months Frequency of Treatment Once a Week Length of Session 45 Minutes Therapeutic Contents Cognitive-Linguistic Training Provided Patient/Caregiver Instruction Home Exercise Program,Plan of Care,Questions/Concerns Therapy Recommendations Continue with Current Program
--- NOTE | 2022-08-05 12:57 | ST.OPDS ---
Visit Care Team Role Provider Type Jarad Van MD Attending Provider Physician Family Provider Primary Care Provider Referring Provider Address: [address] [place] [address], [facility] COMMUNITY PROGRAM ASSISTANT Treatment Note COMMUNITY PROGRAM ASSISTANT Treatment Note Start: 03/27/22 10:07 Freq: Status: Active Protocol: Document 08/05/22 12:54 ZS (Rec: 08/05/22 12:57 ZS [id number]) Speech Pathology Treatment Note Visit Information Plan of Care Dates 03/20/2022 - 11/14/2022 Insurance Information Medicare Setting Treatment Setting Outpatient Care Visit Type Note Type Discharge Summary General Information Patient History Mariela Maddox is an 87-year- old female. She arrived on time with her daughter, who reported Varsha has been having difficulty remembering everything. Varsha reported she is able to recall older information such as her address and family member names, but has difficulty with new information. Her daughter corrected that Varsha has difficulty recalling her address and phone number. 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 Results of the CLQT indicate a mild deficit in attention, executive functions, visuospatial skills, and clock drawing and a moderate deficit in memory and language . Varsha exhibited difficultly recalling personal facts including her age and address. She required multiple repetitions of instructions for tasks and would become distracted with excessive details. She exhibited significant difficulty recalling details of a story, in retelling or answering questions about it. Varsha identified 3 shapes on the first trial of design memory when only 2 were shown. She identified when numbers were incorrectly spaced on her clock drawing, but was unable to correct them. The time was set correctly given typical placement of a 2 on a clock, though her arrow was pointing to the 3 she had drawn. She was unable to complete either maze, appearing to forget the directions and become confused by the task. Visuospatial skills appears to be a relative strength, as observed in her design generation task. Recommend speech therapy to provide education and support for neurocognitive skills, especially as they relate to activities of daily living such as medication management and medical decision making. Subjective Identification Type Name Identification Reconciled With Medical Record Others Present Family Observations/Patient Presentation Daughter called to discharge from speech therapy as it is not effective at this time. Chief Complaint(s) Cognitive Patient/Caregiver Compliance with Home Poor Exercise Program Objective Short Term Goals 1. Varsha will demonstrate increased ability to recall events from her day using external memory aids (e.g., memory book) as determined by pt and family report. 2. Varsha will recall 3-5 steps in a process (e.g., instructions for a given task) given verbal directions across 2 sessions. Delivery Room Clerk Goals 1. Varsha will demonstrate independent use of cognitive strategies (e.g., calendars, memory book, etc.) to improve memory in her daily life as reported by pt and family and determined by clinician judgment. Assessment Patient Response to Treatment Good Impairments Identified Cognitive communication Progress Towards Goals Delayed Progress Assessment of Overall Progress Unchanged Assessment of Improvement Limited progress made due to reduced attendance and limited implementation of home practice exercises for carryover of strategies to home environment. Discharging at this time due to family request as they do not feel this is beneficial at this time. Reviewed with Patient Goals,Home Exercise Program Patient/Caregiver Understanding Excellent Plan Therapeutic Contents Cognitive-Linguistic Training Provided Patient/Caregiver Instruction Home Exercise Program,Plan of Care,Questions/Concerns Therapy Recommendations Discharge from Speech Therapy Reason for Discharge Family request, limited progress due to lack of carryover in home.
== END 2022-08-05 13:06 ==
LOC: SP 11:30
PROVIDERS: Family Provider Family Medicine; PCP Family Medicine; Referring Provider Family Medicine; Visit Provider Family Medicine
DX: R41.89 Other symptoms and signs involving cognitive functions and awareness (principal)
CPT/HCPCS: 96125; 97129; 97130

== ENCOUNTER → 2024-06-12 14:42 | Outpatient (CLI) | payer MEDICARE, MEDICAID, SELFPAY ==
[2024-06-12 15:20] LABS: Add Manual Diff / Slide Review NO; Basophils Absolute Auto 0 /uL (0-100); Basophils Percent Auto 0.5 % (0-2); Eosinophils Absolute Auto 200 /uL (0-450); Eosinophils Percent Auto 3.2 % (2-4); Hematocrit 36.3 % (36-46); Hemoglobin 12.3 g/dL (12.0-16.0); Lymphocytes Absolute Auto 1500 /uL (1100-4500); Lymphocytes Percent Auto 25.7 % (25-40); Mean Corpuscular Hemoglobin 29.9 PG (26-34); Mean Corpuscular Volume 87.8 fL (80-100); Monocytes Absolute Auto 500 /uL (0-900); Monocytes Percent Auto 8.5 % (3-14); Neutrophils Absolute Auto 3700 /uL (1500-7000); Neutrophils Percent Auto 62.1 % (50-75); Platelet Count 258 X10^3/uL (150-400); Red Blood Cell Count 4.13 X10^6/uL (4.0-5.2); Red Cell Distribution Width 14.2 % (11.6-14.8); White Blood Cell Count 5.9 X10^3/uL (4.5-11.0)
[2024-06-12 15:42] LABS: Alanine Aminotransferase 18 IU/L (<35); Albumin Globulin Ratio 1.5 (1.0-2.8); Alkaline Phosphatase 72 U/L (38-126); Aspartate Aminotransferase 26 IU/L (14-36); BUN Creatinine Ratio 27.4 (6-22); Bilirubin Total 0.4 mg/dL (0.2-1.3); Blood Urea Nitrogen 17 mg/dL (7-17); Calcium 9.2 mg/dL (8.4-10.2); Carbon Dioxide 26 mmol/L (22-32); Chloride 107 mmol/L (98-107); Estimated Glomerular Filt Rate > 60 mL/min (>60); Globulin 2.7 g/dL (1.7-4.1); Glucose 98 mg/dL (80-110); HEMOLYSIS < 15 (0-50); Potassium 4.4 mmol/L (3.4-5.1); Sodium 138 mmol/L (137-145); Total Protein 6.7 g/dL (6.3-8.2)
[2024-06-12 16:11] LABS: TSH w/ Reflex to FT4 1.57 uIU/mL (0.47-4.68)
[2024-06-12 18:13] LABS: Hep C Virus Ab w/Reflex Quant NEGATIVE s/c (NEGATIVE)
== END ==
PROVIDERS: Family Provider Family Medicine; PCP Family Medicine; Referring Provider Family Medicine; Visit Provider Family Medicine
DX: G47.00 Insomnia, unspecified (principal); F03.90 Unspecified dementia, unspecified severity, without behavioral disturbance, psychotic disturbance, mood disturbance, and anxiety; F51.04 Psychophysiologic insomnia; F41.9 Anxiety disorder, unspecified
CPT/HCPCS: 36415; 80053; 84443; 85025; 86803

== ENCOUNTER → 2024-09-19 16:07 | Outpatient (CLI) | payer MEDICARE, MEDICAID, SELFPAY ==
--- NOTE | 2024-09-19 16:09 | DI.RAD.S_ITS ---
PROCEDURE: XR HIP W PEL IF DONE RT 2V INDICATIONS: fell last week, sharp pain in hip and medial leg TECHNIQUE: AP pelvis with lateral view(s) of the right hip(s). COMPARISON: None. FINDINGS: Bones: Aypz-ei-yvjcepph bilateral hip joint osteoarthritic changes are seen. No fractures or dislocations. No evidence of avascular necrosis of femoral head. Pelvic ring appears intact. No suspicious bony lesions. Soft tissues: The visualized bowel gas pattern is normal. No suspicious soft tissue calcifications. IMPRESSION: Bvas-je-xalisoeg bilateral hip joint osteoarthritis. No acute fracture or dislocation. No evidence of avascular necrosis. Dictated by: Clyde Odonnell M.D. on 09/19/2024 at 16:56 Approved by: Clyde Odonnell M.D. on 09/19/2024 at 16:57
--- NOTE | 2024-09-19 16:09 | DI.RAD.S_ITS ---
PROCEDURE: XR FEMUR RT MIN 2V INDICATIONS: fall last week, sharp pain hip/leg TECHNIQUE: 4 views of the femur were acquired. COMPARISON: None. FINDINGS: Bones: No fractures or dislocations. Dhrq-cx-sreebzir right hip joint osteoarthritic changes are seen. Hqbs-pn-dosfczep tricompartmental osteoarthritis in right knee is also noted. No evidence of avascular necrosis of femoral head. No suspicious bony lesions. Soft tissues: No suspicious soft tissue calcifications or masses. IMPRESSION: No acute right femoral fracture or dislocation. 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 No gross soft tissue abnormalities. Dictated by: Clyde Odonnell M.D. on 09/19/2024 at 16:56 Approved by: Clyde Odonnell M.D. on 09/19/2024 at 16:56
== END ==
PROVIDERS: Family Provider Family Medicine; PCP Family Medicine; Referring Provider Physician Assistant; Visit Provider Physician Assistant
DX: M70.71 Other bursitis of hip, right hip (principal); M16.0 Bilateral primary osteoarthritis of hip; M17.11 Unilateral primary osteoarthritis, right knee
CPT/HCPCS: 73502; 73552